=== PATIENT | female | born 1960 | race Caucasian/White ===

== ENCOUNTER 2023-08-21 09:03 | Outpatient (OUT) | payer OTHER, SELFPAY ==
[2023-08-21 10:52] LABS: Estimated Average Glucose 105 mg/dL; Glycohemoglobin A1C 5.3 % (4.5-6.2)
[2023-08-21 11:33] LABS: Alanine Aminotransferase 24 U/L (14-59); Albumin Level 3.8 g/dL (3.4-5.0); Alkaline Phosphatase 84 U/L (46-116); Anion Gap 9.7; Aspartate Amino Transferase 16 U/L (15-37); BUN Creatinine Ratio 20.5; Bilirubin Total 0.6 mg/dL (0.2-1.0); Calcium 9.5 mg/dL (8.5-10.1); Carbon Dioxide 30.6 mmol/L (21.0-32.0); Chloride 103 mmol/L (98-107); Chol HDL Ratio 2.8; Cholesterol 199 mg/dL (<=200); Estimated GFR (African America >60 (>=60); Estimated GFR (Non-African Ame >60 (>=60); Free T3 2.62 pg/mL (2.18-3.98); Globulin 3.9 g/dL; Glucose 90 mg/dL (74-106); HDL Cholesterol 70 mg/dL (40-60); Potassium 4.3 mmol/L (3.5-5.1); Sodium 139 mmol/L (136-145); Thyroid Stimulating Hormone 0.238 uIU/mL (0.358-3.740); Total Protein 7.7 g/dL (6.4-8.2); Triglycerides 93 mg/dL (<=150); VLDL CHOLESTEROL 18.6 mg/dL
[2023-08-21 11:47] LABS: Basophils Absolute Auto 0.1 10^3/uL (0.0-0.1); Basophils Percent Auto 0.9 % (0.2-2.0); Eosinophils Absolute Auto 0.2 10^3/uL (0.0-0.7); Eosinophils Percent Auto 2.9 % (0.9-7.0); Hematocrit 45.5 % (36.0-48.0); Hemoglobin 14.8 g/dL (12.0-16.0); Immature Granulocytes Abs Auto 0.01 10^3/uL (0.00-0.03); Immature Granulocytes Pct Auto 0.1 % (0.0-0.5); Lymphocytes Absolute Auto 2.9 10^3/uL (1.2-3.8); Lymphocytes Percent Auto 36.5 % (20.5-60.0); Mean Corpuscular HGB Conc 32.5 g/dL (29.9-35.2); Mean Corpuscular Hemoglobin 31.2 pg (26.7-34.0); Mean Corpuscular Volume 95.8 fL (81.0-99.0); Mean Platelet Volume 10.9 fL (9.5-13.5); Monocytes Absolute Auto 0.6 10^3/uL (0.3-0.8); Monocytes Percent Auto 8.1 % (1.7-12.0); Neutrophils Absolute Auto 4.1 10^3/uL (1.4-6.5); Neutrophils Percent Auto 51.5 % (43.0-75.0); Platelet Count 247 10^3/uL (150-450); Red Blood Count 4.75 10^6/uL (4.20-5.40); Red Cell Distribution Width 11.7 % (11.0-15.0); White Blood Count 7.9 10^3/uL (4.0-11.0)
== END 2023-08-21 09:04 | disposition home or self-care (01) ==
LOC: LAB 09:07
PROVIDERS: PCP Family Medicine; Visit Provider Family Medicine
DX: Z00.00 Encounter for general adult medical examination without abnormal findings (principal)
CPT/HCPCS: 36415; 80053; 80061; 83036; 84436; 84443; 84481; 85025

== ENCOUNTER 2024-09-15 09:52 | Outpatient (OUT) | payer MEDICARE, SELFPAY ==
[2024-09-15 10:21] LABS: Basophils Absolute Auto 0.1 10^3/uL (0.0-0.1); Basophils Percent Auto 0.9 % (0.2-2.0); Eosinophils Absolute Auto 0.3 10^3/uL (0.0-0.7); Eosinophils Percent Auto 3.2 % (0.9-7.0); Hematocrit 45.6 % (36.0-48.0); Hemoglobin 15.6 g/dL (12.0-16.0); Immature Granulocytes Abs Auto 0.02 10^3/uL (0.00-0.03); Immature Granulocytes Pct Auto 0.3 % (0.0-0.5); Lymphocytes Absolute Auto 2.8 10^3/uL (1.2-3.8); Lymphocytes Percent Auto 35.3 % (20.5-60.0); Mean Corpuscular HGB Conc 34.2 g/dL (29.9-35.2); Mean Corpuscular Hemoglobin 31.7 pg (26.7-34.0); Mean Corpuscular Volume 92.7 fL (81.0-99.0); Mean Platelet Volume 9.8 fL (9.5-13.5); Monocytes Absolute Auto 0.6 10^3/uL (0.3-0.8); Monocytes Percent Auto 7.1 % (1.7-12.0); Neutrophils Absolute Auto 4.2 10^3/uL (1.4-6.5); Neutrophils Percent Auto 53.2 % (43.0-75.0); Platelet Count 253 10^3/uL (150-450); Red Blood Count 4.92 10^6/uL (4.20-5.40); Red Cell Distribution Width 11.9 % (11.0-15.0); White Blood Count 7.8 10^3/uL (4.0-11.0)
[2024-09-15 10:42] LABS: Estimated Average Glucose 108 mg/dL; Glycohemoglobin A1C 5.4 % (4.5-6.2)
[2024-09-15 11:13] LABS: Alanine Aminotransferase 23 U/L (14-59); Albumin Globulin Ratio 1.1; Albumin Level 3.9 g/dL (3.4-5.0); Alkaline Phosphatase 86 U/L (46-116); Anion Gap 6.7; Aspartate Amino Transferase 16 U/L (15-37); BUN Creatinine Ratio 22.4; Bilirubin Total 0.5 mg/dL (0.2-1.0); Calcium 9.6 mg/dL (8.5-10.1); Carbon Dioxide 31.2 mmol/L (21.0-32.0); Chloride 103 mmol/L (98-107); Chol HDL Ratio 2.8; Cholesterol 195 mg/dL (<=200); Estimated GFR (African America >60 (>=60 mL/min/1.73m^2); Estimated GFR (Non-African Ame >60 (>=60 mL/min/1.73m^2); Free T3 2.92 pg/mL (2.18-3.98); Globulin 3.7 g/dL; Glucose 91 mg/dL (74-106); HDL Cholesterol 69 mg/dL (40-60); Potassium 3.9 mmol/L (3.5-5.1); Sodium 137 mmol/L (136-145); Thyroid Stimulating Hormone 0.349 uIU/mL (0.358-3.740); Total Protein 7.6 g/dL (6.4-8.2); Triglycerides 106 mg/dL (<=150); VLDL CHOLESTEROL 21.2 mg/dL
== END 2024-09-15 09:53 | disposition home or self-care (01) ==
PROVIDERS: PCP Family Medicine; Visit Provider Family Medicine
DX: E03.9 Hypothyroidism, unspecified (principal); E78.00 Pure hypercholesterolemia, unspecified; K21.9 Gastro-esophageal reflux disease without esophagitis; R73.09 Other abnormal glucose; Z12.12 Encounter for screening for malignant neoplasm of rectum; D64.9 Anemia, unspecified; I10 Essential (primary) hypertension; R53.83 Other fatigue
CPT/HCPCS: 36415; 80053; 80061; 83036; 83540; 84436; 84443; 84481; 85025

== ENCOUNTER 2024-10-13 04:25 | Emergency (ER) | payer MEDICARE, SELFPAY ==
[2024-10-13 04:28] VITALS: BP 163/109; PULSE 67; TEMP 36.8; O2SAT 98; BMI 22.9
--- NOTE | 2024-10-13 04:46 | ED_ITS ---
HPI - Nausea/Vomiting/Diarrhea General Chief complaint: Nausea/Vomiting/Diarrhea Stated complaint: RHETT BOOKER FELING Time Seen by Provider: 10/13/24 04:42 Source: patient Mode of arrival: walk-in History of Present Illness HPI Narrative: ill for a couple of days. Started with chills and then frontal headache . Headache has improved. Diarrhea for a couple of days. Nonbloody. no abdominal pain or fever. Feels weak. Exposed to grandchild last week with diarrhea Related Data Home Medications ?Medication ?Instructions ?Recorded ?Confirmed hyoscyamine 0.15 mg tablet 0.125 mg PO TID 10/13/24 10/13/24 levothyroxine 100 mcg tablet 100 mcg PO DAILY 10/13/24 10/13/24 lovastatin 20 mg tablet 20 mg PO DAILY 10/13/24 10/13/24 Allergies Allergy/AdvReac Type Severity Reaction Status Date / Time No Known Drug Allergies Allergy Verified 10/13/24 04:32 Review of Systems ROS Status of ROS 10 or more systems reviewed and unremark able except as noted in history and below Exam Constitutional Vital Signs, click to edit/add: Last Vital Signs Temp 98.2 F 10/13/24 04:28 Pulse 67 10/13/24 04:28 Resp 16 10/13/24 04:28 BP 163/109 H 10/13/24 04:28 Pulse Ox 98 10/13/24 04:28 O2 Del Method Room Air 10/13/24 04:28 Common normals: no apparent distress, average body habitus, oriented x3, no limitations, healthy appearing, alert and well nourished [facility] Common normals: normocephalic and head/scalp atraumatic Eye Common normals: EOMs intact bilaterally and conjunctivae normal Respiratory Common normals: normal respiratory effort, no retractions, no use of accessory muscles and clear to auscultation bilaterally Cardio Common normals: regular rate, regular rhythm, S1 normal heart sound and S2 normal heart sound GI Common normals: Normal to inspection, nondistended, normoactive bowel sounds present, soft to palpation and non-tender Extremity Common normals: normal to inspection and full ROM Neuro Common normals: oriented x3, CN's II-XII intact bilaterally, moves all extremities and no focal motor deficits Psych Appearance: grossly normal Course Vital Signs Vital signs: Vital Signs Temperature 98.2 F 10/13/24 04:28 Pulse Rate 67 10/13/24 04:28 Respiratory Rate 16 10/13/24 04:28 Blood Pressure 163/109 H 10/13/24 04:28 Pulse Oximetry 98 10/13/24 04:28 Oxygen Delivery Method Room Air 10/13/24 04:28 Temperature 98.2 F 10/13/24 04:28 Pulse Rate 67 10/13/24 04:28 Respiratory Rate 16 10/13/24 04:28 Blood Pressure 163/109 H 10/13/24 04:28 Pulse Oximetry 98 10/13/24 04:28 Oxygen Delivery Method Room Air 10/13/24 04:28 MDM - Nausea/Vomiting/Diarrhea MDM Narrative Medical decision making narrative: patient presents with diarrhea. No abdominal pain. Feels weak. Found to have hypomagnesemia. remaining labs WNL. Hydrated in the department and magnesium supplemented. Discharged home with a prescription of Lomotil and is to follow up with her doctor Lab Data Labs: Lab Results 10/13/24 10/13/24 Range/Units 04:50 05:00 WBC 8.4 (4.0-11.0) 10^3/uL RBC 5.24 (4.20-5.40) 10^6/uL Hgb 16.7 H (12.0-16.0) g/dL Hct 49.5 H (36.0-48.0) % MCV 94.5 (81.0-99.0) fL MCH 31.9 (26.7-34.0) pg MCHC 33.7 (29.9-35.2) g/dL RDW 12.0 (11.0-15.0) % Plt Count 218 (150-450) 10^3/uL MPV 10.1 (9.5-13.5) fL Neut % (Auto) 69.6 (43.0-75.0) % Lymph % (Auto) 17.7 L (20.5-60.0) % [place] % (Auto) 10.2 (1.7-12.0) % Eos % (Auto) 2.0 (0.9-7.0) % Baso % (Auto) 0.1 L (0.2-2.0) % Neut # (Auto) 5.8 (1.4-6.5) 10^3/uL Lymph # (Auto) 1.5 (1.2-3.8) 10^3/uL [place] # (Auto) 0.9 H (0.3-0.8) 10^3/uL Eos # (Auto) 0.2 (0.0-0.7) 10^3/uL Baso # (Auto) 0.0 (0.0-0.1) 10^3/uL Abs Immat Gran (auto) 0.03 (0.00-0.03) 10^3/uL Imm/Tot Granulo (auto) 0.4 (0.0-0.5) % Sodium 139 (136-145) mmol/L Potassium 3.5 (3.5-5.1) mmol/L Chloride 101 (98-107) mmol/L Carbon Dioxide 27.4 (21.0-32.0) mmol/L Anion Gap 14.1 BUN 16.0 (7.0-18.0) mg/dL Creatinine 0.93 (0.55-1.02) mg/dL Est GFR ( Amer) >60 (>=60 mL/min/1.73m^2) Est GFR (Non-Af Amer) >60 (>=60 mL/min/1.73m^2) BUN/Creatinine Ratio 17.2 Glucose 93 (74-106) mg/dL Lactate 1.1 (0.4-2.0) mmol/L Calcium 9.3 (8.5-10.1) mg/dL Magnesium 1.6 L (1.8-2.4) mg/dL Total Bilirubin 0.5 (0.2-1.0) mg/dL AST 29 (15-37) U/L ALT 31 (14-59) U/L Alkaline Phosphatase 89 (46-116) U/L Total Protein 7.9 (6.4-8.2) g/dL Albumin 3.7 (3.4-5.0) g/dL Globulin 4.2 g/dL Albumin/Globulin Ratio 0.9 Urine Color Yellow (YELLOW) Urine Clarity Clear (CLEAR) Urine pH 6.0 (5.0-9.0) Ur Specific [place] 1.020 (1.005-1.025) Urine Protein Negative (NEG/TRACE) mg/dL Urine Glucose (UA) Negative (NEGATIVE) mg/dL Urine Ketones >=80 A (NEGATIVE) mg/dL Urine Occult Blood Trace-i (NEGATIVE) Urine Nitrite Negative (NEGATIVE) Urine Bilirubin Small A (NEGATIVE) Urine Urobilinogen 0.2 (0.2-1.0) EU/dL Ur Leukocyte Esterase Negative (NEGATIVE) Urine RBC None seen (0-2) #/HPF Urine WBC 0-2 A (NONE SEEN) #/HPF Ur Squamous Epith Cells Rare (NONE/RARE) #/LPF Urine Crystals None seen (None Seen) #/HPF Urine Bacteria Small A (NONE SEEN) #/HPF Urine Casts None seen (NONE SEEN) #/LPF Ur [place] [place] Discharge Chief Complaint: Nausea/Vomiting/Diarrhea Clinical Impression: Diarrhea Patient Disposition: Home, Self-Care Prescriptions / Home Meds: No Action levothyroxine 100 mcg tablet 100 mcg PO DAILY lovastatin 20 mg tablet 20 mg PO DAILY hyoscyamine 0.15 mg tablet 0.125 mg PO TID Print Language: Ghanaian Instructions: Acute Diarrhea (ED) Additional Instructions: use Lomotil in place of hyoscyamine. Follow up with Dr Madera next couple of days Referrals: Mateusz Madera MD [Primary Care Provider] - 1 week
[2024-10-13 05:11] LABS: Basophils Percent Auto 0.1 % (0.2-2.0); Eosinophils Absolute Auto 0.2 10^3/uL (0.0-0.7); Hematocrit 49.5 % (36.0-48.0); Hemoglobin 16.7 g/dL (12.0-16.0); Immature Granulocytes Abs Auto 0.03 10^3/uL (0.00-0.03); Immature Granulocytes Pct Auto 0.4 % (0.0-0.5); Lymphocytes Absolute Auto 1.5 10^3/uL (1.2-3.8); Lymphocytes Percent Auto 17.7 % (20.5-60.0); Mean Corpuscular HGB Conc 33.7 g/dL (29.9-35.2); Mean Corpuscular Hemoglobin 31.9 pg (26.7-34.0); Mean Corpuscular Volume 94.5 fL (81.0-99.0); Mean Platelet Volume 10.1 fL (9.5-13.5); Monocytes Absolute Auto 0.9 10^3/uL (0.3-0.8); Monocytes Percent Auto 10.2 % (1.7-12.0); Neutrophils Absolute Auto 5.8 10^3/uL (1.4-6.5); Neutrophils Percent Auto 69.6 % (43.0-75.0); Platelet Count 218 10^3/uL (150-450); Red Blood Count 5.24 10^6/uL (4.20-5.40); White Blood Count 8.4 10^3/uL (4.0-11.0)
[2024-10-13 05:19] LABS: Bilirubin Urine SMALL (NEGATIVE); Blood Urine TRACE-I (NEGATIVE); Clarity Urine CLEAR (CLEAR); Color Urine YELLOW (YELLOW); Glucose Urine UA NEGATIVE (NEGATIVE); Ketones Urine >=80 mg/dL (NEGATIVE); Leukocyte Esterase Urine NEGATIVE (NEGATIVE); Nitrite Urine NEGATIVE (NEGATIVE); Protein Urine NEGATIVE (NEG/TRACE); Urobilinogen Urine 0.2 EU/dL (0.2-1.0)
[2024-10-13] MEDS: 0.9 % SODIUM CHLORIDE 1,000 ML 999 ML IV (05:25)
[2024-10-13 05:26] LABS: Bacteria Urine SMALL #/HPF (NONE SEEN); Cast Seen? NONE SEEN #/LPF (NONE SEEN); Crystals Seen? None Seen #/HPF (None Seen); RBC Urine NONE SEEN #/HPF (0-2); Squamous Epithelial Cell Urine RARE #/LPF (NONE/RARE); WBC Urine 0-2 #/HPF (NONE SEEN)
[2024-10-13 05:27] LABS: Urine Culture Indicated YES-FRMC
--- NOTE | 2024-10-13 05:27 | PC.NURSE ---
reports diarrhea for two days. denies any abdominal pain. saw pcp yesterday and was prescribed antidiarrhal
[2024-10-13 05:28] LABS: Alanine Aminotransferase 31 U/L (14-59); Albumin Globulin Ratio 0.9; Albumin Level 3.7 g/dL (3.4-5.0); Alkaline Phosphatase 89 U/L (46-116); Anion Gap 14.1; Aspartate Amino Transferase 29 U/L (15-37); BUN Creatinine Ratio 17.2; Bilirubin Total 0.5 mg/dL (0.2-1.0); Calcium 9.3 mg/dL (8.5-10.1); Carbon Dioxide 27.4 mmol/L (21.0-32.0); Chloride 101 mmol/L (98-107); Estimated GFR (African America >60 (>=60 mL/min/1.73m^2); Estimated GFR (Non-African Ame >60 (>=60 mL/min/1.73m^2); Globulin 4.2 g/dL; Glucose 93 mg/dL (74-106); Magnesium 1.6 mg/dL (1.8-2.4); Potassium 3.5 mmol/L (3.5-5.1); Sodium 139 mmol/L (136-145); Total Protein 7.9 g/dL (6.4-8.2)
[2024-10-13 05:57] LABS: Lactate/Lactic Acid 1.1 mmol/L (0.4-2.0)
[2024-10-13] MEDS: MAGNESIUM SULFATE IN WATER 2 GM/50 ML PREMIX IV (06:14)
[2024-10-13 07:10] VITALS: BP 135/94; PULSE 87; O2SAT 99
[2024-10-13] MEDS: LOPERAMIDE HCL 1 MG/7.5 ML LIQUID 2 MG PO (07:21)
== END 2024-10-13 07:23 | disposition home or self-care (01) ==
PROVIDERS: Emergency Provider Internal Medicine; PCP Family Medicine
DX: R19.7 Diarrhea, unspecified (principal); E83.42 Hypomagnesemia; R82.998 Other abnormal findings in urine
CPT/HCPCS: 36415; 80053; 81001; 83605; 83735; 85025; 87086; 96361; 96365; 99284; J3475

== ENCOUNTER 2024-12-25 02:26 | Emergency (ER) | payer MEDICARE, SELFPAY ==
[2024-12-25] VITALS (11 sets, daily range): BP systolic 149–181; BP diastolic 88–105; PULSE 67–73; TEMP 36.4; O2SAT 94–99; BMI 23.4
--- NOTE | 2024-12-25 02:00 | ECG_ITS ---
[facility] Test Date: 2024-12-25 Pat Name: ROBYN DUNLAP Department: Room: - Gender: Female [employer] Supervisor: : [id number] Requested By: [id number] Order Number: [id number] Reading MD: NARENDRA DICK M.D. Measurements Intervals [place] Rate: 68 P: 66 ND: 176 QRS: -39 QRSD: 92 T: 33 QT: 412 QTc: 429 Interpretive Statements 1100 Sinus rhythm 5220 Possible left ventricular hypertrophy 6220 Possible left atrial enlargement 7200 Abnormal left axis deviation 8003 Consistent with pulmonary disease 8102 Low QRS voltage in chest leads 9150 abnormal ECG Compared to ECG 05/05/2022 20:46:37 Low QRS voltage now present Electronically Signed On 12-26-2024 17:22:24 EDT by NARENDRA DICK M.D.
--- OUTSIDE RECORDS SUMMARY | 2024-12-25 02:43 | XMS_ITS | CCD ---
Author Organization [facility] Care Team Providers Care Supervisor Loading Name Role Phone LORRI WILLAMS Attending Unavailable BLAYNE SMITH Admitting Unavailable OXANA, DR MITCHELL Primary Care Unavailable JUAN HORAN Consulting Unavailable BLAYNE SMITH Attending Unavailable BLAYNE SMITH Consulting Unavailable ANGEL FITCH Consulting Unavailable OXANA, DR MITCHELL Attending Unavailable OXANA, DR MITCHELL Consulting Unavailable OXANA, DR MITCHELL Primary Care Unavailable OXANA, DR MITCHELL Admitting Unavailable OXANA, DR MITCHELL Primary Care Unavailable ISMA HOPKINS Attending Unavailable ISMA HOPKINS Admitting Unavailable GINO, DR ANGEL Eagle Consulting Unavailable GUS RUFFIN Consulting Unavailable Isma Hpokins MD Attending Provider [phone] Stephen Madera MD Primary Care Provider STEPHEN MADERA Referring Unavailable STEPHEN MADERA Referring Unavailable DENI ROCHA Attending Unavailable Stephen Madera Admitting Unavailable Stephen Madera Primary Care Unavailable Stephen Madera Attending Unavailable Isma Hopkins Attending Unavailable Isma Hopkins Admitting Unavailable Deni Rocha Admitting Unavailable Deni Rocha Attending Unavailable Stephen Madera Primary Care Unavailable Allergies Allergy Classification Reported Allergen(s) Allergy Type Date of Onset Reaction(s) Facility (3 sources) Metoprolol; Translations: [METOPROLOL] Drug Allergy 05-07-2022 [facility] Repository Medications Current Medications Medication Drug Class(es) Dates Sig (Normalized) Sig (Original) ALPRAZolam 0.25 mg oral tablet (2 sources) Benzodiazepine Start: 12-01-2024 take 1 tablet by mouth in the morning, then take 1 tablet by mouth in the evening, then take 1 tablet by mouth at bedtime ALPRAZolam (Xanax) 0.25 MG tablet Take 0.25 mg by mouth in the morning and 0.25 mg in the evening and 0.25 mg before bedtime. 12/01/2024 Active levothyroxine sodium 0.1 mg oral tablet (2 sources) l-Thyroxine Start: 09-15-2024 take 1 tablet by mouth once daily levothyroxine (Synthroid, Levoxyl) 100 MCG tablet Take 100 mcg by mouth Daily 09/15/2024 Active lovastatin 20 mg oral tablet (2 sources) HMG-CoA Reductase Inhibitor Start: 12-14-2024 lovastatin (Mevacor) 20 MG tablet 12/14/2024 Active Problems Problem Classification Problem Date Documented Date Episodic/Chronic Cancer of breast (6 sources) Malignant tumor of breast ; Translations: [Malignant neoplasm of unspecified site of right female breast] Onset: 12-15-2024 12-15-2024 Chronic Cardiac dysrhythmias (3 sources) Supraventricular tachycardia; Translations: [Supraventricular tachycardia] Onset: 04-30-2022 Chronic Cardiac dysrhythmias (4 sources) Palpitations; Translations: [PALPITATIONS] Onset: 04-27-2022 Episodic Conditions associated with dizziness or vertigo (5 sources) Dizziness and giddiness; Translations: [DIZZINESS AND GIDDINESS] Onset: 04-30-2022 Episodic E Codes: Adverse effects of medical drugs (1 source) Adverse effect of beta-adrenoreceptor antagonists, initial encounter; Translations: [ADVRS EFF B-ADRENOCPT ANTAG INITIAL] Onset: 05-09-2022 Episodic Malaise and fatigue (1 source) Other fatigue; Translations: [OTHER FATIGUE] Onset: 05-09-2022 Episodic Nonmalignant breast conditions (1 source) Unspecified lump in the right breast, upper outer quadrant; Translations: [Unspecified lump in the right breast, upper outer quadrant] Onset: 12-08-2024 Episodic Other aftercare (1 source) Other product development assistant (current) drug therapy; Translations: [OTH TELESALES CONSULTANT CURRENT DRUG THERAPY] Onset: 05-09-2022 Episodic Results Test Name Value Interpretation Reference Range Facility [facility] 12-08-2024 L --- Specimen: [id number] Received: 12/08/24 Status: GIOVANNY Reina Num: [id number] Spec Type: Surgical Subm Dr: Elieser Helms Jr, DO Tissues: A BREAST CORE NO CALCS (RIGHT BREAST 8 CM) B BREAST CORE NO CALCS (RIGHT BREAST 6 CM) Procedures: HE/8, Gross/Micro L4/2, E CADHERIN/2, ER/2, Ki-67/2, ME/2, IHC First AB/2 Age/ Patient Sex Location Account Attending Physician Bianca Toleod 64/F SUSANNA [id number] Stephen Madera MD SPEC NUM: [id number] RECD: 12/08/24 STATUS: GIOVANNY REINA NUM: [id number] HAMMAD: 12/08/[address] [facility] [address]: Elieser Helms Jr, DO ENTERED: 12/08/24 [facility] DR: Deni Rocha DO SPEC TYPE: Surgical DEPT: S ENTERED BY: [id number] RECV BY: [id number] ORDERED: HE/8, Gross/Micro L4/2, E CADHERIN/2, ER/2, Ki-67/2, ME/2, IHC First AB/2 ORDERED: HE/8, Gross/Micro L4/2, E CADHERIN/2, ER/2, Ki-67/2, ME/2, IHC First AB/2, IMMUNOHISTOCHEM/6 This report is amended to clarify the location/site designation of specimen B. The report should read: B. Right breast, 2:00, 6 cm from nipple The original diagnosis remains unchanged. Addendum Signed (signature on file) Shant Moreno Jr., MD 12/13/24 0914 Supplemental Report Addendum 2 Entered: 12/18/24-0301 This supplemental is issued to report the results of the FISH analysis for HER2 performed at [facility] ([id number]). A summary report of the HER2 results is also attached. The complete reports have been scanned into the patient's medical record Specimen: [id number] Received: 12/08/24 Status: GIOVANNY Reina Num: [id number] Spec Type: Surgical Subm Dr: Elieser eHlms Jr, Tissues: A BREAST CORE NO CALCS (RIGHT BREAST 8 CM) B BREAST CORE NO CALCS (RIGHT BREAST 6 CM) Procedures: HE/8, Gross/Micro L4/2, E CADHERIN/2, ER/2, Ki-67/2, ME/2, IHC First AB/2 Patient: Bianca Toledo [id number] (Continued) Specimen: [id number] Received: 12/08/24 (Continued) Supplemental Report (Continued) Signed (signature on file) Tin Martini MD 12/10/24 1456 Specimen: [id number] Received: 12/08/24 Status: GIOVANNY Reina Num: [id number] Spec Type: Surgical Subm Dr: Elieser Helms Jr, Tissues: A BREAST CORE NO CALCS (RIGHT BREAST 8 CM) B BREAST CORE NO CALCS (RIGHT BREAST 6 CM) Procedures: HE/8, Gross/Micro L4/2, E CADHERIN/2, ER/2, Ki-67/2, ME/2, IHC First AB/2 Patient: Farzaneh Toledohlkeily Kendrick [id number] (Continued) Specimen: [id number] Received: 12/08/24-8766 (Continued) Supplemental Report (Continued) FISH HER2/ÁLVARO-17 Dual-Probe (Breast Cancer) RESULT: FINAL HER2 RESULT IS NEGATIVE (per 2018 ASCO/CAP guidelines). See result comments HER2 IHC Result is 2+ HER2 FISH Result: Cannot be determined (Group 4) Addendum Signed (signature on file) Shant Moreno Jr., MD 12/18/24 1525 Addendum 1 Entered: 12/17/24-5675 This supplemental report is issued to report the results of the HER2 prognostic marker analysis performed at [facility], ([facility] reference number [id number]) BREAST PREDICTIVE/PROGNOSTIC MARKER ANALYSIS A. Specimen site: Right Breast 8:00, 8 cmfn (block A1) RESULTS: HER2 Ultralow (see comments) Score: 0 Analysis: Manual B. Specimen site: Right Breast 2:00, 6 cmfn (block B1) RESULTS: HER2 Equivocal Score: 2+ Analysis: Manual FISH testing being performed. The complete report has been scanned into the patient's medical record. Specimen: [id number] Received: 12/08/24 Status: GIOVANNY Reina Num: [id number] Spec Type: Surgical Subm Dr: Elieser Helms Jr, DO Tissues: A BREAST CORE NO CALCS (RIGHT BREAST 8 CM) B BREAST CORE NO CALCS (RIGHT BREAST 6 CM) Procedures: HE/8, Gross/ (more content not included)... Normal [facility] US biopsy RT add lesion guid on 12-08-2024 US biopsy RT add lesion guid [facility] [place] [address] Ultrasound Report Signed with Lynn Patient: Bianca Toledo MR#: [id number] : 1960 Acct:[id number] Age/Sex: 64 / F ADM Date: 12/08/24 Loc: [facility] Room: Type: [facility] Attending Dr: Stephen Madera MD Ordering Provider: Stephen Madera MD Date of Service: 12/08/24 US/US biopsy RT 1st lesion guid: N63.14 ([id number]) US/US biopsy RT add lesion guid: N63.14 ([id number]) MM/MM post biopsy RT w/CAD: CLIP PLACEMENT Copies to: Stephen Madera MD ADDENDUM 1 Addendum for pathology: 2 sites Ultrasound-guided biopsy of mass 8 o'clock position right breast: Invasive breast carcinoma grade 2. ER/ME positive. Finding is malignant and concordant with imaging. Ultrasound-guided biopsy of mass 2:00 position right breast: Invasive breast carcinoma grade 2. ER/ME positive. Finding is malignant and concordant with imaging. Surgical/oncologic management is recommended. Impression dictated by: Elieser Helms Jr., D.OValerie 12/13/2024 9:18 AM Dictation Location: [facility]23 Addendum Dictated By: Elieser Helms Jr DO Addendum Signed By: 12/13/24917 Addendum Cosigned By: DD/ TD/TT: 12/13/24 ULTRASOUND GUIDED VACUUM-ASSISTED HOLOGIC ATEC SYSTEM CORE BIOPSIES OF THE RIGHT BREAST: 2 sites CLINICAL DATA: Breast mass in o'clock position right breast as well as 2:00 position right breast PROCEDURE: The risks, benefits and alternatives to an ultrasound guided vacuum-assisted Hologic ATEC system core biopsy procedure were discussed with the patient and written informed consent was obtained. Site 1: Ultrasonographic survey of the 8:00 position of the right breast was performed by medicine technologist . Additional scanning of the right axilla demonstrated no suspicious lymph nodes. The patient's overlying skin was anesthetized with 1% lidocaine. The deeper soft tissues up to and around the mass were anesthetized with lidocaine mixed with epinephrine. Following this, multiple core biopsies of the 8:00 right breast mass were performed using a 12-gauge Suros vacuum-assisted core biopsy needle under ultrasound guidance. Multiple core biopsy specimens were obtained. A metallic conic bowtie post biopsy marker was then placed. Post procedure mammograms were performed. The patient tolerated the procedure well without immediate postprocedural complication. Site 2: Ultrasonographic survey of the 2:00 position of the right breast was performed by medicine technologist . The patient's overlying skin was anesthetized with 1% lidocaine. The deeper soft tissues up to and around the mass were anesthetized with lidocaine mixed with epinephrine. Following this, multiple core biopsies of the breast mass were performed using a 12-gauge Suros vacuum-assisted core biopsy needle under ultrasound guidance. Multiple core biopsy specimens were obtained. A metallic vision post biopsy marker was then placed. Post procedure mammograms were performed. The patient tolerated the procedure well without immediate postprocedural complication. POSTPROCEDURE MAMMOGRAMS: Craniocaudal and true lateral views of the right breast were performed using low dose digital technique. The postbiopsy markers are seen at the biopsy site without evidence of migration. US/US biopsy RT 1st lesion guid IMPRESSION: STATUS POST ULTRASOUND GUIDED VACUUM-ASSISTED CORE BIOPSIES OF THE RIGHT BREAST. RESULT CODE: NL Impression dictated by: Elieser Helms Jr., DValerieOValerie 12/08/2024 1:46 PM Dictation Location: [facility] Tech: Deepthi BarryChuck Delma Gaspar Transcribed By: EVELYN 12/08/24 1346 Dictated By: Elieser Helms Jr, DO 12/08/24 1312 Signed By: 12/08/24 1346 Normal [facility] BI MAMMOGRAM DIAGNOSTIC MAUREEN SYNTHESIS RIGHTon 11-25-2024 BI MAMMOGRAM DIAGNOSTIC TOMOSYNTHESIS RIGHT This is a summary report. The complete report is available in the patient's medical record. If you cannot access the medical record, please contact the sending organization for a detailed fax or copy. EXAMINATION: BI MAMMOGRAM DIAGNOSTIC TOMOSYNTHESIS RIGHT CLINICAL HISTORY: abnormal mammogram TECHNIQUE: Diagnostic digital mammogram study of the right breast was performed with 2D and 3D tomosynthesis imaging. Study was compared to the screening mammogram study of the breasts dated 11/18/2024 and ultrasound study of the right breast dated 11/25/2024. FINDINGS: Coned-down compression views and true lateral view of the right breast were obtained. The 2 areas of asymmetric density noted on the screening mammogram study are again identified. One of the areas is approximately 0.7 x 0.6 cm and is located at the mid level medially. This area is mildly lobulated. The other area is approximately 0.6 x 0.5 cm and is noted at the mid level laterally. This area appears mildly lobulated and slightly spiculated. The 2 areas are seen as areas of abnormality on the ultrasound study. When correlating the studies possibility of neoplasm related to both areas cannot be excluded. Follow-up tissue diagnosis by means of ultrasound-guided needle biopsy of both areas is recommended for further evaluation. Suspicious findings. IMPRESSION: The 2 asymmetric densities noted on the screening mammogram study are again identified, they appear to correlate with solid appearing areas of concern on the ultrasound exam. When correlating all studies the possibility of neoplasm cannot be excluded. Follow-up tissue diagnosis of both areas by means of ultrasound-guided needle biopsy is recommended for further evaluation. BIRADS 4 - Suspicious Findings DENSITY: The breasts are heterogeneously dense, which may obscure small masses. FOLLOW-UP: Ultrasound - Guided Breast Biopsy Board Certified Radiologists. Accredited by the ACR and FDA. MAMMOGRAPHY IS VERY IMPORTANT TO YOUR HEALTH. THE [employer] GUIDELINES RECOMMEND THAT WOMEN 40 YEARS OF AGE AND OLDER SHOULD HAVE A MAMMOGRAM EVERY YEAR. A REMINDER LETTER WILL BE SENT AT THE APPROPRIATE TIME. ELECTRONICALLY SIGNED BY: Cong Walsh M.D. Abnormal Not Available BI US BREAST LIMITED RIGHTon 11-25-2024 BI US BREAST LIMITED RIGHT This is a summary report. The complete report is available in the patient's medical record. If you cannot access the medical record, please contact the sending organization for a detailed fax or copy. Examination: BI US BREAST LIMITED RIGHT Reason for Study: abnormal mammogram Comparison: Screening mammogram study of the breasts dated 11/18/2024 and diagnostic mammogram study of the right breast dated 11/25/2024. Technique: Right breast ultrasound study was performed. Findings: At approximately the 2 o'clock position at least 6 cm from the nipple there is an area of decreased echogenicity with internal echoes, mild lobulation and slight spiculation measuring approximately 0.7 x 0.6 x 0.5 cm. This area is likely solid and is felt to correlate with one of the asymmetric densities on the mammogram study. When correlating the studies the possibility of neoplasm cannot be excluded. At the 8 o'clock position at least 6 cm from the nipple there is an area of decreased echogenicity with internal echoes, mildly lobulated and spiculated margins measuring approximately 0.6 x 0.4 x 0.4 cm. This area is likely solid and is felt to correlate with one of the asymmetric densities on the mammogram study. When correlating the studies the possibility of neoplasm cannot be excluded. Regarding both findings, follow-up tissue diagnosis by means of ultrasound-guided needle biopsy is recommended for further evaluation. Suspicious findings. IMPRESSION: Impression: Right breast ultrasound study demonstrates what appear to be 2 solid irregular areas at the 2:00 and 8:00 positions as described. These are felt to correlate with the asymmetric densities noted on the mammogram studies. When correlating all studies the possibility of neoplasm cannot be excluded. Follow-up tissue diagnosis of both areas by means of ultrasound-guided needle biopsy is recommended for further evaluation. BI-RADS 4 ELECTRONICALLY SIGNED BY: Cong Walsh M.D. Normal Not Available BI MAMMOGRAM SCREENING TOMOS YNTHESIS BILATERALon 11-18-2024 BI MAMMOGRAM SCREENING TOMOSYNTHESIS BILATERAL This is a summary report. The complete report is available in the patient's medical record. If you cannot access the medical record, please contact the sending organization for a detailed fax or copy. EXAMINATION: BI MAMMOGRAM SCREENING TOMOSYNTHESIS BILATERAL CLINICAL HISTORY:routine COMPARISON: July 19, 2020; July 20, 2021; August 26, 2022; October 02, 2023 RESULT: FINDINGS: Both breasts remain heterogeneously dense. There are no dominant masses, suspicious microcalcifications, or areas of architectural distortion identified on today's examination in the left breast. In the right breast no suspicious microcalcifications or architectural distortion seen. 2 asymmetries are seen. An asymmetry is seen at about 3:00, 7 to 8 cm from the nipple. It is medial on the cc and almost directly behind the nipple on the MLO. The second nodule is slightly superior and very slightly lateral about 11-12 o'clock, 9 to 10 cm from the nipple. IMPRESSION: BI-RADS 0: NEED ADDITIONAL IMAGING EVALUATION DENSITY: The breasts are heterogeneously dense, which may obscure small masses. Board Certified Radiologists. Accredited by the ACR and FDA. MAMMOGRAPHY IS VERY IMPORTANT TO YOUR HEALTH. THE [employer] GUIDELINES RECOMMEND THAT WOMEN 40 YEARS OF AGE AND OLDER SHOULD HAVE A MAMMOGRAM EVERY YEAR. A REMINDER LETTER WILL BE SENT AT THE APPROPRIATE TIME. THIS FACILITY UTILIZES A REMINDER SYSTEM TO ENSURE ALL PATIENTS RECEIVE REMINDER NOTIFICATIONS AT THE APPROPRIATE TIME BASED ON THE RECOMMENDATIONS OF THIS EXAM. THIS INCLUDES REMINDERS FOR ROUTINE SCREENING MAMMOGRAMS, DIAGNOSTIC MAMMOGRAMS IN WHICH THE PATIENT IS ASKED TO RETURN FOR ADDITIONAL VIEWS, OR OTHER BREAST IMAGING INTERVENTIONS WHEN APPROPRIATE. THE PATIENT WILL BE PLACED IN THE APPROPRIATE REMINDER SYSTEM INCLUDING A REMINDER AT THE APPROPRIATE TIME FOR ANY PENDING ADDITIONAL VIEWS. ELECTRONICALLY SIGNED BY: Joo Ellington, DO Abnormal Not Available Urine Cultureon 10-13-2024 Bacteria identified Cx Nom (U) Urine Culture Results 50,000 colonies/ml Mixed Bacterial Skin Contaminants 2 Days Staphylococcus epidermidis removed from report on 10/15/24. PERFORMED BY: [facility] [address] [place] [address] PATHOLOGIST DRAFTER CHIEF DESIGN TEN CHUN M.D. Normal [facility] Comment on above: Performed By: #### C UU #### [facility] [address] [place] [address] [facility] INSULINon 06-04-2022 Insulin 15.4 uIU/mL Normal 2.6-24.9 [facility] Comment on above: Performed By: #### I NSULIN #### [facility] [address] [place] [address] Dr. Ara Anne CBC AUTO DIFFon 06-03-2022 BASO # 0.1 103/ul Normal 0.0-0.1 [facility] Comment on above: Performed By: #### C BC #### [facility] [address] [place] [address] Dr. Ara Anne Basophils/100 WBC (Bld) 0.7 % Normal 0.2-2.0 [facility] Comment on above: Performed By: #### C BC #### [facility] [address] [place] [address] Dr. Ara Anne EO # 0.3 103/ul Normal 0.0-0.7 [facility] Comment on above: Performed By: #### C BC #### [facility] [address] [place] [address] Dr. Ara Anne Eosinophils/100 WBC (Bld) 3.5 % Normal 0.9-7.0 [facility] Comment on above: Performed By: #### C BC #### [facility] [address] [place] [address] Dr. Ara Anne Erythrocyte distribution width (RBC) [Ratio] 11.5 % Normal 11.0-15.0 [facility] Comment on above: Performed By: #### C BC #### [facility] [address] [place] [address] Dr. Ara Anne Hematocrit (Bld) [Volume fraction] 44.0 % Normal 36.0-48.0 [facility] Comment on above: Performed By: #### C BC #### [facility] [address] [place] [address] Dr. Ara Anne Hemoglobin (Bld) [Mass/Vol] 15.0 g/dL Normal 12.0-16.0 [facility] Comment on above: Performed By: #### C BC #### [facility] [address] [place] [address] Dr. Ara Anne IG # 0.02 10e3/ul Normal 0.00-0.03 [facility] Comment on above: Performed By: #### C BC #### [facility] [address] [place] [address] Dr. Ara Anne IG % 0.2 % Normal 0.0-0.5 [facility] Comment on above: Performed By: #### C BC #### [facility] [address] [place] [address] Dr. Ara Anne LYMPH # 3.0 103/ul Normal 1.2-3.8 [facility] Comment on above: Performed By: #### C BC #### [facility] [address] [place] [address] Dr. Ara Anne Lymphocytes/100 WBC (Bld) 34.8 % Normal 20.5-60.0 [facility] Comment on above: Performed By: #### C BC #### [facility] [address] [place] [address] Dr. Ara Anne MANUAL DIFF REQ NO Normal [facility] Comment on above: Performed By: #### C BC #### [facility] [address] [place] [address] Dr. Ara Anne MCH (RBC) [Entitic mass] 31.6 pg Normal 26.7-34.0 [facility] Comment on above: Performed By: #### C BC #### [facility] [address] [place] [address] Dr. Ara Anne MCHC (RBC) [Mass/Vol] 34.1 g/dL Normal 29.9-35.2 [facility] Comment on above: Performed By: #### C BC #### [facility] [address] [address] [address] Ara Anne MCV (RBC) [Entitic vol] 92.6 fL Normal 81.0-99.0 [facility] Comment on above: Performed By: #### C BC #### [facility] [address] [address] [address] Ara Anne MONO # 0.8 103/ul Normal 0.3-0.8 [facility] Comment on above: Performed By: #### C BC #### [facility] [address] [place] [address] Dr. Ara Anne Monocytes/100 WBC (Bld) 9.1 % Normal 1.7-12.0 [facility] Comment on above: Performed By: #### C BC #### [facility] [address] [place] [address] Dr. Ara Anne NEUT # 4.4 103/ul Normal 1.4-6.5 [facility] Comment on above: Performed By: #### C BC #### [facility] [address] [place] [address] Dr. Ara Anne Neutrophils/100 WBC (Bld) 51.7 % Normal 43.0-75.0 [facility] Comment on above: Performed By: #### C BC #### [facility] [address] [place] [address] Dr. Ara Anne Platelet mean volume (Bld) [Entitic vol] 9.6 fL Normal 9.5-13.5 [facility] Comment on above: Performed By: #### C BC #### [facility] [address] [place] [address] Dr. Ara Anne PLT 253 103/ul Normal 150-450 [facility] Comment on above: Performed By: #### C BC #### [facility] [address] [place] [address] Dr. Ara Anne RBC 4.75 106/ul Normal 4.20-5.40 [facility] Comment on above: Performed By: #### C BC #### [facility] [address] [address] [address] Ara Anne WBC 8.6 103/ul Normal 4.0-11.0 [facility] Comment on above: Performed By: #### C BC #### [facility] [address] [place] [address] Dr. Ara Anne FREE THYROXINE INDEX T7on FTI 3.46 Normal 1.30-4.50 [facility] Comment on above: Performed By: #### I NSULIN #### [facility] [address] [address] [address] Ara Anne T3U 36.0 % Normal 30.0-39.0 [facility] Comment on above: Performed By: #### I NSULIN #### [facility] [address] [place] [address] Dr. Ara Anne T4 [Mass/Vol] 9.60 ug/dL Normal 4.80-13.90 [facility] Comment on above: Performed By: #### I NSULIN #### [facility] [address] [place] [address] Dr. Ara Anne GLYCOHEMOGLOBIN A1Con 2021 ADA RECOMMENDATION SEE BELOW Normal [facility] Comment on above: Result Comment: ADA RECOMMENDED LIMIT 4.0 - 6.0 ADA THERAPEUTIC TARGET < 7.0 ACTION SUGGESTED > 7.0 Performed By: #### I NSULIN #### [facility] [address] [place] [address] Dr. Ara Anne Glucose [Mass/Vol] 111 mg/dL Normal [facility] Comment on above: Performed By: #### I NSULIN #### [facility] [address] [address] [address] Ara Anne HbA1c (Bld) [Mass fraction] 5.5 % Normal 4.5-6.2 [facility] Comment on above: Performed By: #### I NSULIN #### [facility] [address] [place] [address] Dr. Ara Anne IRONon 06-03-2022 Iron [Mass/Vol] 108.0 ug/dL Normal 50.0-170.0 [facility] Comment on above: Performed By: #### I NSULIN #### [facility] [id number] Ara Anne LIPID PROFILEon 06-03-2022 CHOL-HDL RATIO NORM SEE BELOW Normal [facility] Comment on above: Result Comment: 3.3 - 4.4 LOW RISK 4.4 - 7.1 AVERAGE RISK 7.1 - 11.0 MODERATE RISK >11.0 HIGH RISK Performed By: #### I NSULIN #### [facility] [address] [address] [address] Ara Anne Cholesterol [Mass/Vol] 184 mg/dL Normal <=200 [facility] Comment on above: Performed By: #### I NSULIN #### [facility] [address] [address] [address] Ara Anne Cholesterol in HDL [Mass/Vol] 61 mg/dL Critically high 40-60 [facility] Comment on above: Performed By: #### I NSULIN #### [facility] [address] [address] [address] Ara Anne Cholesterol in LDL [Mass/Vol] 95.0 mg/dL Normal [facility] Comment on above: Performed By: #### I NSULIN #### [facility] [address] [address] [address] Ara Anne Cholesterol.total/C holesterol in HDL [Mass ratio] 3.0 {ratio} Normal [facility] Comment on above: Performed By: #### I NSULIN #### [facility] [id number] Ara Anne HDL NORMAL > or = 60 mg/dl - LO W CARDIOVASCULAR RISK <40 mg/dl - HIGH CARDIOVASCULAR RISK Normal [facility] Comment on above: Performed By: #### I NSULIN #### [facility] [id number] Ara Anne LDL CALC NORMAL SEE BELOW Normal [facility] Comment on above: Result Comment: <100 mg/dl OPTIMAL 100 - 129 mg/dl NEAR OR ABOVE OPTIMAL 130 - 159 mg/dl BORDERLINE HIGH 160 - 189 mg/dl HIGH >190 mg/dl VERY HIGH Performed By: #### I NSULIN #### [facility] [address] [place] [address] Dr. Ara Anne Triglyceride [Mass/Vol] 140 mg/dL Normal <=150 [facility] Comment on above: Performed By: #### I NSULIN #### [facility] [address] [place] [address] Dr. Ara Anne VLDL CALC 28.0 mg/dL Normal [facility] Comment on above: Performed By: #### I NSULIN #### [facility] [address] [place] [address] Dr. Ara Anne PROF 14(COMP METB)on 022 Albumin [Mass/Vol] 3.9 g/dL Normal 3.4-5.0 [facility] Comment on above: Performed By: #### I NSULIN #### [facility] [address] [place] [address] Dr. Ara Anne Albumin/Globulin [Mass ratio] 1.1 {ratio} Normal [facility] Comment on above: Performed By: #### I NSULIN #### [facility] [address] [place] [address] Dr. Ara Anne ALP [Catalytic activity/Vol] 89 U/L Normal 46-116 [facility] Comment on above: Performed By: #### I NSULIN #### [facility] [address] [place] [address] Dr. Ara Anne ALT [Catalytic activity/Vol] 20 U/L Normal 14-59 [facility] Comment on above: Performed By: #### I NSULIN #### [facility] [address] [place] [address] Dr. Ara Anne Anion gap [Moles/Vol] 11.4 mmol/L Normal [facility] Comment on above: Performed By: #### I NSULIN #### [facility] [address] [place] [address] Dr. Ara Anne AST [Catalytic activity/Vol] 19 U/L Normal 15-37 [facility] Comment on above: Performed By: #### I NSULIN #### [facility] [address] [address] [address] Ara Anne Bilirubin [Mass/Vol] 0.4 mg/dL Normal 0.2-1.0 [facility] Comment on above: Performed By: #### I NSULIN #### [facility] [address] [address] [address] Ara Anne Calcium [Mass/Vol] 9.8 mg/dL Normal 8.5-10.1 [facility] Comment on above: Performed By: #### I NSULIN #### [facility] [address] [address] [address] Ara Anne Chloride [Moles/Vol] 101 mmol/L Normal 98-107 [facility] Comment on above: Performed By: #### I NSULIN #### [facility] [address] [place] [address] Dr. Ara Anne CO2 [Moles/Vol] 29.7 mmol/L Normal 21.0-32.0 [facility] Comment on above: Performed By: #### I NSULIN #### [facility] [address] [address] [address] Ara Anne Creatinine [Mass/Vol] 0.62 mg/dL Normal 0.55-1.02 [facility] Comment on above: Performed By: #### I NSULIN #### [facility] [address] [address] [address] Ara Anne EGFR-AF HAITIAN >60 Normal >=60 [facility] Comment on above: Performed By: #### I NSULIN #### [facility] [address] [address] [address] Ara Anne EGFR-NON AF HAITIAN >60 Normal >=60 [facility] Comment on above: Performed By: #### I NSULIN #### [facility] [address] [place] [address] Dr. Ara Anne Globulin (S) [Mass/Vol] 3.7 g/dL Normal [facility] Comment on above: Performed By: #### I NSULIN #### [facility] [address] [address] [address] Ara Anne Glucose [Mass/Vol] 95 mg/dL Normal 74-106 [facility] Comment on above: Performed By: #### I NSULIN #### [facility] [address] [address] [address] Ara Anne Potassium [Moles/Vol] 4.1 mmol/L Normal 3.5-5.1 [facility] Comment on above: Performed By: #### I NSULIN #### [facility] [address] [address] [address] Ara Anne Protein [Mass/Vol] 7.6 g/dL Normal 6.4-8.2 [facility] Comment on above: Performed By: #### I NSULIN #### [facility] [address] [address] [address] Ara Anne Sodium [Moles/Vol] 138 mmol/L Normal 136-145 [facility] Comment on above: Performed By: #### I NSULIN #### [facility] [address] [address] [address] Ara Anne Urea nitrogen [Mass/Vol] 16.0 mg/dL Normal 7.0-18.0 [facility] Comment on above: Performed By: #### I NSULIN #### [facility] [address] [address] [address] Ara Anne Urea nitrogen/Creatinine [Mass ratio] 25.8 mg/mg Normal [facility] Comment on above: Performed By: #### I NSULIN #### [facility] [address] [address] [address] Ara Anne TSHon 06-03-2022 TSH 0.311 uIU/mL Critically low 0.358-3.740 [facility] Comment on above: Performed By: #### I NSULIN #### [facility] [address] [address] [address] Ara Anne Office Visiton 05-07-2022 Follow-up visit [id number] Bianca Toledo 1960 F Date Provider Department Center 05/07/2022 YannaLucioLORRI WILLAMS [facility] Family History Problem Relation Age of Onset Stroke Father 63 Family Status - Relation Status Age at Father Level of Service:11961 ME OFFICE/OUTPATIENT NEW HIGH MDM 60-74 MINUTES Reason for Visit and Comments: Palpitations [047664] Normal [facility] CBC AUTO DIFFon 05-05-2022 BASO # 0.1 103/ul Normal 0.0-0.1 [facility] Comment on above: Performed By: #### C BC #### [facility] [address] [address] [address] Ara Anne Basophils/100 WBC (Bld) 0.7 % Normal 0.2-2.0 [facility] Comment on above: Performed By: #### C BC #### [facility] [address] [address] [address] Ara Anne EO # 0.5 103/ul Normal 0.0-0.7 [facility] Comment on above: Performed By: #### C BC #### [facility] [address] [place] [address] Dr. Ara Anne Eosinophils/100 WBC (Bld) 4.7 % Normal 0.9-7.0 [facility] Comment on above: Performed By: #### C BC #### [facility] [address] [address] [address] Ara Anne Erythrocyte distribution width (RBC) [Ratio] 11.9 % Normal 11.0-15.0 [facility] Comment on above: Performed By: #### C BC #### [facility] [address] [place] [address] Dr. Ara Anne Hematocrit (Bld) [Volume fraction] 45.3 % Normal 36.0-48.0 [facility] Comment on above: Performed By: #### C BC #### [facility] [address] [place] [address] Dr. Ara Anne Hemoglobin (Bld) [Mass/Vol] 15.5 g/dL Normal 12.0-16.0 [facility] Comment on above: Performed By: #### C BC #### [facility] [address] [address] [address] Ara Anne IG # 0.03 10e3/ul Normal 0.00-0.03 [facility] Comment on above: Performed By: #### C BC #### [facility] [address] [place] [address] Dr. Ara Anne IG % 0.3 % Normal 0.0-0.5 [facility] Comment on above: Performed By: #### C BC #### [facility] [address] [place] [address] Dr. Ara Anne LYMPH # 4.3 103/ul Critically high 1.2-3.8 [facility] Comment on above: Performed By: #### C BC #### [facility] [address] [place] [address] Dr. Ara Anne Lymphocytes/100 WBC (Bld) 39.0 % Normal 20.5-60.0 [facility] Comment on above: Performed By: #### C BC #### [facility] [address] [place] [address] Dr. Ara Anne MANUAL DIFF REQ NO Normal [facility] Comment on above: Performed By: #### C BC #### [facility] [address] [place] [address] Dr. Ara Anne MCH (RBC) [Entitic mass] 32.2 pg Normal 26.7-34.0 [facility] Comment on above: Performed By: #### C BC #### [facility] [address] [place] [address] Dr. Ara Anne MCHC (RBC) [Mass/Vol] 34.2 g/dL Normal 29.9-35.2 [facility] Comment on above: Performed By: #### C BC #### [facility] [address] [place] [address] Dr. Ara Anne MCV (RBC) [Entitic vol] 94.2 fL Normal 81.0-99.0 [facility] Comment on above: Performed By: #### C BC #### [facility] [address] [place], [place] [id number] Dr. Ara Anen MONO # 1.0 103/ul Critically high 0.3-0.8 [facility] Comment on above: Performed By: #### C BC #### [facility] [address] [place] [address] Dr. Ara Anne Monocytes/100 WBC (Bld) 8.6 % Normal 1.7-12.0 [facility] Comment on above: Performed By: #### C BC #### [facility] [address] [place] [address] Dr. Ara Anne NEUT # 5.2 103/ul Normal 1.4-6.5 [facility] Comment on above: Performed By: #### C BC #### [facility] [address] [place] [address] Dr. Ara Anne Neutrophils/100 WBC (Bld) 46.7 % Normal 43.0-75.0 [facility] Comment on above: Performed By: #### C BC #### [facility] [address] [place] [address] Dr. Ara Anne Platelet mean volume (Bld) [Entitic vol] 10.2 fL Normal 9.5-13.5 [facility] Comment on above: Performed By: #### C BC #### [facility] [address] [place] [address] Dr. Ara Anne PLT 281 103/ul Normal 150-450 [facility] Comment on above: Performed By: #### C BC #### [facility] [address] [place] [address] Dr. Ara Anne RBC 4.81 106/ul Normal 4.20-5.40 [facility] Comment on above: Performed By: #### C BC #### [facility] [address] [place] [address] Dr. Ara Anne WBC 11.1 103/ul Critically high 4.0-11.0 [facility] Comment on above: Performed By: #### C BC #### [facility] [address] [place] [address] Dr. Ara Anne PROF 14(COMP METB)on 022 Albumin [Mass/Vol] 3.8 g/dL Normal 3.4-5.0 [facility] Comment on above: Performed By: #### H SANDHYA, CMP #### [facility] [address] [address] [address] Ara Anne Albumin/Globulin [Mass ratio] 1.0 {ratio} Normal [facility] Comment on above: Performed By: #### H ALYSSAPN, CMP #### [facility] [address] [address] [address] Ara Anne ALP [Catalytic activity/Vol] 79 U/L Normal 46-116 [facility] Comment on above: Performed By: #### H SANDHYA, CMP #### [facility] [address] [place] [address] Dr. Ara Anne ALT [Catalytic activity/Vol] 15 U/L Normal 14-59 [facility] Comment on above: Performed By: #### H SANDHYA, CMP #### [facility] [address] [place] [address] Dr. Ara Anne Anion gap [Moles/Vol] 7.2 mmol/L Normal [facility] Comment on above: Performed By: #### H SANDHYA, CMP #### [facility] [address] [place] [address] Dr. Ara Anne AST [Catalytic activity/Vol] 16 U/L Normal 15-37 [facility] Comment on above: Performed By: #### H SANDHYA, CMP #### [facility] [address] [address] [address] Ara Anne Bilirubin [Mass/Vol] 0.2 mg/dL Normal 0.2-1.0 [facility] Comment on above: Performed By: #### H ALYSSAPN, CMP #### [facility] [address] [address] [address] Ara Anne Calcium [Mass/Vol] 9.3 mg/dL Normal 8.5-10.1 [facility] Comment on above: Performed By: #### H ALYSSAPN, CMP #### [facility] [address] [address] [address] Ara Anne Chloride [Moles/Vol] 103 mmol/L Normal 98-107 [facility] Comment on above: Performed By: #### H ALYSSAPN, CMP #### [facility] [address] [address] [address] Ara Anne CO2 [Moles/Vol] 29.3 mmol/L Normal 21.0-32.0 [facility] Comment on above: Performed By: #### H STROPN, CMP #### [facility] [address] [place] [address] Dr. Ara Anne Creatinine [Mass/Vol] 0.92 mg/dL Normal 0.55-1.02 [facility] Comment on above: Performed By: #### H STROPN, CMP #### [facility] [address] [place] [address] Dr. Ara Anne EGFR-AF HAITIAN >60 Normal >=60 [facility] Comment on above: Performed By: #### H ALYSSAPN, CMP #### [facility] [address] [place] [address] Dr. Ara Anne EGFR-NON AF HAITIAN >60 Normal >=60 [facility] Comment on above: Performed By: #### H ALYSSAPN, CMP #### [facility] [address] [place] [address] Dr. Ara Anne Globulin (S) [Mass/Vol] 3.7 g/dL Normal [facility] Comment on above: Performed By: #### H ALYSSAPN, CMP #### [facility] [address] [address] [address] Ara Anne Glucose [Mass/Vol] 111 mg/dL Critically high 74-106 [facility] Comment on above: Performed By: #### H STROPN, CMP #### [facility] [address] [place] [address] Dr. Ara Anne Potassium [Moles/Vol] 3.5 mmol/L Normal 3.5-5.1 [facility] Comment on above: Performed By: #### H STROPN, CMP #### [facility] [address] [place] [address] Dr. Ara Anne Protein [Mass/Vol] 7.5 g/dL Normal 6.4-8.2 [facility] Comment on above: Performed By: #### H SANDHYA, CMP #### [facility] [address] [address] [address] Ara Anne Sodium [Moles/Vol] 136 mmol/L Normal 136-145 [facility] Comment on above: Performed By: #### H SANDHYA, CMP #### [facility] [address] [address] [address] Ara Anne Urea nitrogen [Mass/Vol] 17.0 mg/dL Normal 7.0-18.0 [facility] Comment on above: Performed By: #### H SANDHYA, CMP #### [facility] [address] [address] [address] Ara Anne Urea nitrogen/Creatinine [Mass ratio] 18.5 mg/mg Normal [facility] Comment on above: Performed By: #### H SANDHYA, CMP #### [facility] [address] [place] [address] Dr. Ara Anne TROPONIN, HIGH SENSITIVITYon 05-05-2022 HSTROP 6.8 pg/mL Normal 4.0-51.3 [facility] Comment on above: Result Comment: CUT- OFF POINTS HAVE BEEN ESTABLISHED BASED ON THE FOURTH UNIVERSAL DEFINITIONS OF MYOCARDIAL INFARCTION. THE UPPER REFERENCE LIMIT (URL) OF TROPONIN, DEFINED THE 99TH PERCENTILE OF cTnI DISTRIBUTION IN A REFERENCE POPULATION, HAS BEEN CONFIRMED THE DECISION THRESHOLD FOR [place] DIAGNOSIS. Performed By: #### H SANDHYA, CMP #### [facility] [address] [place] [address] Dr. Ara Anne XR CHEST 1 Von 05-05-2022 XR CHEST 1 V EXAMINATION: XR CHES T 1 V HISTORY: Asthenia COMPARISON: 04/27/2022 TECHNIQUE: AP portable erect FINDINGS: LUNGS: No significant pulmonary parenchymal abnormalities. VASCULATURE: No increased pulmonary vasculature. PLEURA: No pneumothorax, effusion, or pleural thickening. CARDIAC: No cardiomegaly or cardiac silhouette abnormality. MEDIASTINUM: No visible mass or adenopathy. BONES: No fracture or visible bone lesion. Severe rotatory dextroscoliosis OTHER: Negative. IMPRESSION: No acute disease. Electronically authenticated by: ANGEL CHRISTIAN Date: 2022-05-05 20:56 Normal [facility] CBC AUTO DIFFon 04-27-2022 BASO # 0.1 103/ul Normal 0.0-0.1 [facility] Comment on above: Performed By: #### C BC #### [facility] [address] [address] [address] Ara Anne Basophils/100 WBC (Bld) 0.5 % Normal 0.2-2.0 [facility] Comment on above: Performed By: #### C BC #### [facility] [address] [place] [address] Dr. Ara Anne EO # 0.2 103/ul Normal 0.0-0.7 [facility] Comment on above: Performed By: #### C BC #### [facility] [address] [place] [address] Dr. Ara Anne Eosinophils/100 WBC (Bld) 1.7 % Normal 0.9-7.0 [facility] Comment on above: Performed By: #### C BC #### [facility] [address] [place] [address] Dr. Ara Anne Erythrocyte distribution width (RBC) [Ratio] 11.9 % Normal 11.0-15.0 [facility] Comment on above: Performed By: #### C BC #### [facility] [address] [place] [address] Dr. Ara Anne Hematocrit (Bld) [Volume fraction] 44.3 % Normal 36.0-48.0 [facility] Comment on above: Performed By: #### C BC #### [facility] [address] [place] [address] Dr. Ara Anne Hemoglobin (Bld) [Mass/Vol] 15.1 g/dL Normal 12.0-16.0 [facility] Comment on above: Performed By: #### C BC #### [facility] [address] [place] [address] Dr. Ara Anne IG # 0.04 10e3/ul Critically high 0.00-0.03 [facility] Comment on above: Performed By: #### C BC #### [facility] [address] [place] [address] Dr. Ara Anne IG % 0.3 % Normal 0.0-0.5 [facility] Comment on above: Performed By: #### C BC #### [facility] [address] [place] [address] Dr. Ara Anne LYMPH # 3.0 103/ul Normal 1.2-3.8 [facility] Comment on above: Performed By: #### C BC #### [facility] [address] [place] [address] Dr. Ara Anne Lymphocytes/100 WBC (Bld) 24.9 % Normal 20.5-60.0 [facility] Comment on above: Performed By: #### C BC #### [facility] [address] [place] [address] Dr. Ara Anne MANUAL DIFF REQ NO Normal [facility] Comment on above: Performed By: #### C BC #### [facility] [address] [place] [address] Dr. Ara Anne MCH (RBC) [Entitic mass] 31.9 pg Normal 26.7-34.0 [facility] Comment on above: Performed By: #### C BC #### [facility] [address] [place] [address] Dr. Ara Anne MCHC (RBC) [Mass/Vol] 34.1 g/dL Normal 29.9-35.2 [facility] Comment on above: Performed By: #### C BC #### [facility] [address] [place] [address] Dr. Ara Anne MCV (RBC) [Entitic vol] 93.5 fL Normal 81.0-99.0 [facility] Comment on above: Performed By: #### C BC #### [facility] [address] [place] [address] Dr. Ara Anne MONO # 1.6 103/ul Critically high 0.3-0.8 [facility] Comment on above: Performed By: #### C BC #### [facility] [address] [address] [address] Ara Anne Monocytes/100 WBC (Bld) 13.0 % Critically high 1.7-12.0 [facility] Comment on above: Performed By: #### C BC #### [facility] [address] [address] [address] Ara Anne NEUT # 7.2 103/ul Critically high 1.4-6.5 [facility] Comment on above: Performed By: #### C BC #### [facility] [address] [address] [address] Ara Anne Neutrophils/100 WBC (Bld) 59.6 % Normal 43.0-75.0 [facility] Comment on above: Performed By: #### C BC #### [facility] [address] [address] [address] Ara Anne Platelet mean volume (Bld) [Entitic vol] 10.2 fL Normal 9.5-13.5 [facility] Comment on above: Performed By: #### C BC #### [facility] [address] [address] [address] Ara Anne PLT 221 103/ul Normal 150-450 [facility] Comment on above: Performed By: #### C BC #### [facility] [address] [address] [address] Ara Anne RBC 4.74 106/ul Normal 4.20-5.40 [facility] Comment on above: Performed By: #### C BC #### [facility] [address] [address] [address] Ara Anne WBC 12.0 103/ul Critically high 4.0-11.0 [facility] Comment on above: Performed By: #### C BC #### [facility] [address] [address] [address] Ara Anne PROF 14(COMP METB)on 022 Albumin [Mass/Vol] 3.9 g/dL Normal 3.4-5.0 [facility] Comment on above: Performed By: #### I NSULIN #### [facility] [address] [address] [address] Ara Anne Albumin/Globulin [Mass ratio] 1.1 {ratio} Normal [facility] Comment on above: Performed By: #### I NSULIN #### [facility] [address] [address] [address] Ara Anne ALP [Catalytic activity/Vol] 85 U/L Normal 46-116 [facility] Comment on above: Performed By: #### I NSULIN #### [facility] [address] [address] [address] Ara Anne ALT [Catalytic activity/Vol] 31 U/L Normal 14-59 [facility] Comment on above: Performed By: #### I NSULIN #### [facility] [address] [place] [address] Dr. Ara Anne Anion gap [Moles/Vol] 14.8 mmol/L Normal [facility] Comment on above: Performed By: #### I NSULIN #### [facility] [address] [place] [address] Dr. Ara Anne AST [Catalytic activity/Vol] 24 U/L Normal 15-37 [facility] Comment on above: Performed By: #### I NSULIN #### [facility] [address] [place] [address] Dr. Ara Anne Bilirubin [Mass/Vol] 0.2 mg/dL Normal 0.2-1.0 [facility] Comment on above: Performed By: #### I NSULIN #### [facility] [address] [place] [address] Dr. Ara Anne Calcium [Mass/Vol] 8.7 mg/dL Normal 8.5-10.1 [facility] Comment on above: Performed By: #### I NSULIN #### [facility] [address] [address] [address] Ara Anne Chloride [Moles/Vol] 100 mmol/L Normal 98-107 [facility] Comment on above: Performed By: #### I NSULIN #### [facility] [address] [address] [address] Ara Anne CO2 [Moles/Vol] 25.8 mmol/L Normal 21.0-32.0 [facility] Comment on above: Performed By: #### I NSULIN #### [facility] [address] [address] [address] Ara Anne Creatinine [Mass/Vol] 0.93 mg/dL Normal 0.55-1.02 [facility] Comment on above: Performed By: #### I NSULIN #### [facility] [address] [address] [address] Ara Anne EGFR-AF HAITIAN >60 Normal >=60 [facility] Comment on above: Performed By: #### I NSULIN #### [facility] [address] [place] [address] Dr. Ara Anne EGFR-NON AF HAITIAN >60 Normal >=60 [facility] Comment on above: Performed By: #### I NSULIN #### [facility] [address] [place] [address] Dr. Ara Anne Globulin (S) [Mass/Vol] 3.6 g/dL Normal [facility] Comment on above: Performed By: #### I NSULIN #### [facility] [address] [place] [address] Dr. Ara Anne Glucose [Mass/Vol] 129 mg/dL Critically high 74-106 [facility] Comment on above: Performed By: #### I NSULIN #### [facility] [address] [address] [address] Ara Anne Potassium [Moles/Vol] 3.6 mmol/L Normal 3.5-5.1 [facility] Comment on above: Performed By: #### I NSULIN #### [facility] [address] [address] [address] Ara Anne Protein [Mass/Vol] 7.5 g/dL Normal 6.4-8.2 [facility] Comment on above: Performed By: #### I NSULIN #### [facility] [address] [address] [address] Ara Anne Sodium [Moles/Vol] 137 mmol/L Normal 136-145 [facility] Comment on above: Performed By: #### I NSULIN #### [facility] [address] [place] [address] Dr. Ara Anne Urea nitrogen [Mass/Vol] 15.0 mg/dL Normal 7.0-18.0 [facility] Comment on above: Performed By: #### I NSULIN #### [facility] [address] [place] [address] Dr. Ara Anne Urea nitrogen/Creatinine [Mass ratio] 16.1 mg/mg Normal [facility] Comment on above: Performed By: #### I NSULIN #### [facility] [address] [place] [address] Dr. Ara Anne PROTIMEon 04-27-2022 INR Coag (PPP) [Relative time] 0.95 {INR} Normal [facility] Comment on above: Performed By: #### P T, PTT #### [facility] [address] [place] [address] Dr. Ara Anne INR GUIDELINES SEE BELOW Normal [facility] Comment on above: Result Comment: ROBE RED INR: 2.0 - 3.0 CONDITIONS NOT LISTED BELOW 2.5 - 3.5 FOR PROSTHETIC HEART VALVE REPLACEMENT 2.5 - 3.5 RECURRENT THROMBOSIS Performed By: #### P T, PTT #### [facility] [address] [place] [address] Dr. Ara Anne PT Coag (PPP) [Time] 10.3 s Normal 9.0-11.6 [facility] Comment on above: Performed By: #### P T, PTT #### [facility] [address] [place] [address] Dr. Ara Anne PTTon 04-27-2022 aPTT Coag (Bld) [Time] 28.1 s Normal 22.3-36.2 [facility] Comment on above: Performed By: #### P T, PTT #### [facility] [address] [place] [address] Dr. Ara Anne TROPONIN, HIGH SENSITIVITYon 04-27-2022 HSTROP 16.5 pg/mL Normal 4.0-51.3 [facility] Comment on above: Result Comment: CUT- OFF POINTS HAVE BEEN ESTABLISHED BASED ON THE FOURTH UNIVERSAL DEFINITIONS OF MYOCARDIAL INFARCTION. THE UPPER REFERENCE LIMIT (URL) OF TROPONIN, DEFINED THE 99TH PERCENTILE OF cTnI DISTRIBUTION IN A REFERENCE POPULATION, HAS BEEN CONFIRMED THE DECISION THRESHOLD FOR [place] DIAGNOSIS. Performed By: #### I NSULIN #### [facility] [address] [address] [address] Ara Anne TSHon 04-27-2022 TSH 0.689 uIU/mL Normal 0.358-3.740 [facility] Comment on above: Performed By: #### I NSULIN #### [facility] [address] [address] [address] Ara Anne XR CHEST 1 Von 04-27-2022 XR CHEST 1 V EXAMINATION: XR CHES T 1 V HISTORY: Chest pain COMPARISON: None. TECHNIQUE: Portable chest FINDINGS: The lung parenchyma is free of consolidation or infiltrate. No pneumothorax or pleural effusion. The cardiac, mediastinal and hilar contours are normal. Dextrocurvature of the thoracic spine. The visualized osseous structures exhibit no acute abnormality. IMPRESSION: No acute cardiopulmonary abnormality. Electronically authenticated by: ANGEL FITCH Date: 2022-04-27 16:19 Normal [facility] SCREENING MAMMOGRAM W/MAUREEN, BILATERAL*on 07-20-2021 SCREENING MAMMOGRAM W/MAUREEN, BILATERAL* CLINICAL HISTORY: Screening Mammogram COMPARISON: Priors from 2020, 2018, 2017, 2016 TECHNIQUE: 2D and 3D mammogram imaging of both breasts was performed. RESULT: DENSITY: Heterogeneously dense, which may obscure small masses. There is no suspicious mass, asymmetry, architectural distortion, or calcification. No significant change since the prior mammograms. IMPRESSION: BIRADS 1 : NEGATIVE, NORMAL INTERVAL FOLLOW UP FOLLOW UP: 12 months DENSITY: Heterogeneously dense MAMMOGRAPHY IS VERY IMPORTANT TO YOUR HEALTH. THE CURRENT [place] [employer] OF [employer] AND [employer]WORK GUIDELINES RECOMMENDS ANNUAL MAMMOGRAPHY BEGINNING AT AGE 40 THIS FACILITY USES A REMINDER SYSTEM TO ENSURE ALL PATIENTS RECEIVE REMINDER NOTIFICATIONS AT THE APPROPRIATE TIME BASED ON THE RECOMMENDATIONS OF THIS EXAM. Board Certified Radiologist. Accredited by the ACR and FDA. Report reported and signed by Kevin Carlos on 07/20/[address] [facility] Counter Supervisor Vital Signs Date Time Vital Sign Value Performing Clinician Aubrie broussard 12-15-2024 13:23-0400 Body height 167.6 cm Deni Itzkowitz DO Work Phone: [facility] 12-15-2024 13:23-0400 Body mass index (BMI) [Ratio] 23.4 kg/m2 Deni Itzkowitz DO Work Phone: [facility] 12-15-2024 13:23-040 Body weight 65.77 kg Deni Itzkowitz DO Work Phone: [facility] Healthcare Encounters Encounter Date Encounter Type Care Provider Facility Start: 12-15-2024 End: 12-15-2024 Office outpatient visit 40 minutes Deni H Itzkowitz DO Work Phone: [facility] Comment on above: Malignant neoplasm o f right breast in female, estrogen receptor positive, unspecified site of breast (HCC) (Primary Dx) Start: 12-15-2024 End: 12-15-2024 ambulatory DENI H ITZKOWITZ Not Available Start: 12-08-2024 End: 12-08-2024 ambulatory Stephen Madera Facility:[facility] Start: 12-02-2024 End: 12-02-2024 ambulatory Deni Itzkowitz Facility:[facility] Start: 11-25-2024 End: 11-25-2024 ambulatory STEPHEN MADERA Not Available Start: 11-18-2024 End: 11-18-2024 ambulatory STEPHEN M CHEPEY Not Available Start: 10-13-2024 End: 10-13-2024 ambulatory Isma Hopkins [facility] Work Phone: Start: 10-13-2024 End: 10-13-2024 Departed Referred Isma Hopkins MD Work Phone: [facility] Path Spec [facility] Start: 06-08-2022 Encounter for genera l adult medical examination without abnormal findings DR STEPHEN MADERA [facility] Start: 06-03-2022 End: 06-04-[address] STEPHEN MADERA Facility:[facility] Start: 06-03-2022 End: 06-04-2022 Encounter for general adult medical examination without abnormal findings DR STEPHEN MADERA Facility:[facility] Start: 05-07-2022 End: 05-07-2022 ambulatory [facility] Start: 05-05-2022 End: 05-05-[address] STEPHEN MADERA Facility:[facility] Start: 04-27-2022 End: 04-27-2022 ambulatory BLAYNE SMITH Facility:[facility] Plan of Treatment Date Care Activity Detail Author Start: 12-29-2024 End: 12-29-2024 Patient encounter procedure 12/29/2024 1:15 PM EDT Office Visit [facility] [address] [id number] Deni Rocha DO [address] [place] [address] [facility] Start: 12-15-2024 End: 02-14-2026 MR Breast - bilateral WO and W contrast IV Bilateral breast MR with and without contrast Imaging Routine Malignant neoplasm of right breast in female, estrogen receptor positive, unspecified site of breast (HCC) Expected: 12/15/2024, Expires: 02/14/2026 [facility] Work Phone: Comment on above: Expected: 12/15/2024 , Expires: 02/14/2026 Start: 10-13-2024 Bacteria identified in Urine by Culture Urine Culture [facility] Start: 10-13-2024 Urine culture [facility] Payers Date Payer Category Payer Self-pay 2024 Medicare MEDICARE [id number] 2024 Private Health Insurance RAJESH Kendrick embdora [id number] 2024 Medicare [id number] 2024 Private Health Insurance I [id number] 2021 Unknown [id number] 1960 Unknown [id number] [id number] 1959 Unknown [id number] [id number]. [id number] 1959 Unknown [id number] [id number]. [id number] 1959 Unknown [id number] [id number]. 2.1259 1959 Unknown [id number] [id number]. 2.1259 1959 Unknown [id number] [id number]. 2.1259 1959 Unknown [id number] [id number]. 2.1259 Unknown [facility] [id number] Unknown [id number] [id number] [id number] Unknown [id number] [id number]. 2.531 Unknown [id number] [id number]. 2.531 Social History Date Type Detail Facility [facility] Work Phone: Start: 10-14-2024 Sex Female (finding) [facility] Start: 1960 Sex Assigned At Female F [facility] Start: 12-15-2024 [facility] Never smoked tobacco [facility] Start: 12-15-2024 Tobacco use and exposure Smokeless tobacco non-user [facility] Start: 12-15-2024 Alcoholic beverage intake Current drinker of alcohol (finding) [facility] Start: 12-15-2024 History of Social function [facility] Start: 12-15-2024 Tobacco use panel [facility] Start: 1960 Sex assigned at Not on file [facility] History of Present illness Narrative 12-15-2024 Deni Rocha, DO - 12/15/2024 1:30 PM EDT Note Date & Type Note Facility 12-15-2024 History of Presen t illness Narrative Images from the original note were not included. Bianca Toledo 1960 Bianca Toledo is a 64 y.o. female presents with chief complaint of Bx results (Breast clinic pt.) HPI: JAQUELINE Valenzuela was initially seen in the breast clinic cfor workup abnormal mammography. She denied any masses or skin changes but had two areas in the right breast of concern on imaging. She presents for the biopsy results SUBJECTIVE: MEDICATIONS: ALLERGIES No current outpatient medications Not on File PAST MEDICAL HISTORY: SOCIAL HISTORY SURGICAL HISTORY: No past medical history on file. No past surgical history on file. FAMILY HISTORY No family history on file. REVIEW OF SYMPTOMS: Review of Systems Constitutional: Negative for diaphoresis and unexpected weight change. HENT: Negative for hearing loss, tinnitus and voice change. Respiratory: Negative for shortness of breath. Cardiovascular: Negative for chest pain and palpitations. Musculoskeletal: Negative for arthralgias. Neurological: Negative for dizziness, seizures and headaches. All other systems reviewed and are negative. Hematological: Negative for adenopathy. Does not bruise/bleed easily. OBJECTIVE: Visit Vitals OB Status Hysterectomy Physical Exam Exam conducted with a osteopathy doctor present. HENT: Head: Normocephalic. Cardiovascular: Rate and Rhythm: Normal rate and regular rhythm. Pulmonary: Effort: Pulmonary effort is normal. Breath sounds: Normal breath sounds. Chest: Comments: Bilateral supraclavicular, infraclavicular, bicipital and axillary lymph nodes were found to be normal. Each breast was examined in the sitting and supine position, there was no evidence of masses, dimpling or discharge in either breast. She has ecchymosis at both biopsy sites. Abdominal: General: Abdomen is flat. Bowel sounds are normal. Palpations: Abdomen is soft. Skin: General: Skin is warm and dry. Neurological: Mental Status: She is alert. ASSESSMENT AND PLAN: Assessment/Plan Diagnoses and all orders for this visit: Malignant neoplasm of right breast in female, estrogen receptor positive, unspecified site of breast (HCC) - Bilateral breast MR with and without contrast; Future Kayleigh presents with her sister for the path results. Both sites were positive for IMC The site at 2:00 is ER+ ME neg and the site at 8:00 is ER/ME pos. Her 2 is pending on both. I informed the patient of the diagnosis of RIGHT breast cancer at both sites. I explained that we need to do a breast MRI to make sure these are the only lesions in the beast. I briefly discussed the surgical options to include a mastectomy with immediate or delayed reconstruction vs a lumpectomy with the possible addition of radiation therapy, and that I will need to evaluate the LN surgically. If the MRI shows additional sites of cancer we may only be able to offer a mastectomy. The patient was informed that after surgical treatments is completed she will be referred to Hem/Onc and Rad Onc for consideration of additional treatment options. We discussed the indications for genetic testing to see if she is a carrier of the BRCA or PALB2 genes as well as others. I explained that the results will alter the surgical recommendations if she is positive. A positive result will also raise questions about treatments to reduce her risk for other cancers. In addition the results are important for her family as others may need to be tested to see if they are carriers as well. I explained we do a blood draw in the office and will have the results in 7-10 days. She is in agreement and gave permission for the testing to be completed. I will have her return to review the results of the testing and to plan for surgery. 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 she was recently admitted to [facility] on 04/27/2022 with SVT. she was given adenosine initial dose was unsuccessful. a second dose was successful in terminating to sinus. EKG reviewed 05/12/2022 at 3 PM initially showed a narrow complex tachycardia at 64 bpm with a short RP interval suggestive of AVNRT. She has high anxiety and feels her heart race at times. She was unable to tolerate metoprolol due to dizziness and fatigue. she was initially prescribed 25 mg once a day which was increased to 50 mg twice a day by Dr. Madera. patient was unable to tolerate this and became quite lethargic and tired and had to be brought to the hospital on 06/02/2022. EP study performed on 04/25/[address] Jamison In the lab spontaneous tachycardia was induced with the VA interval of 5 ms suggestive of AVNRT with rate of 160 bpm and later on with Isuprel it was 180 bpm. Ablation was replaced into the nonirrigated catheter with a junctional's noted. Post ablation single echo beat was noted with no tachycardia was induced. Review of Systems Cardiovascular: Positive for palpitations. Respiratory: Positive for cough. All other systems reviewed and are negative. PMH: No past medical history on file. PSH: No past surgical history on file. SH: Social Determinants of Health Tobacco Use: Not on file Alcohol Use: Not on file Financial Resource Strain: Not on file Food Insecurity: Not on file Transportation Needs: Not on file Physical Activity: Not on file Stress: Not on file Social Connections: Not on file Intimate Partner Violence: Not on file Depression: Not on file Housing Stability: Not on file Meds: No current outpatient medications on file prior to visit. No current facility-administered medications on file prior to visit. ROS: Cardio Basic Cardiovascular Symptoms: no lightheadedness, no leg edema, no syncope, no orthopnea, no PND, no claudication, Constitutional Constitutional: no fever, no night sweats, no significant weight gain, no significant weight loss, no exercise intolerance Eyes Eyes: no dry eyes, no irritation, no vision change ENMT Ears: no difficulty hearing, no ear pain Nose: no frequent nosebleeds, Mouth/Throat: no sore throat, no bleeding gums, no snoring, no dry mouth, no mouth ulcers, no oral abnormalities, no teeth problems Respiratory Respiratory: no cough, no wheezing, no coughing up blood, no sleep apnea Musculoskeletal Musculoskeletal: no muscle aches, no muscle weakness, joint pain+, no back pain, no swelling in the extremities Integumentary Skin no rash, no ulcer, no varicosities, no discoloration, no pruritus Neurologic Neurologic: no loss of consciousness, no weakness, no numbness, no seizures, no dizziness, no headaches Psychiatric Psych: no depression, feeling safe in relationship, no alcohol abuse, Hematologic/Lymphatic Hematologic/Lymphatic no swollen glands, no bruising Physical Exam: Constitutional General Appearance: well-nourished, well-developed, appears stated age Level of Distress: comfortable Psychiatric Mental Status: alert, normal affect Orientation: oriented to time, place, and person Insight: good judgement Eyes Lids and Conjunctivae: non-injected, no xanthelasma ENMT Ears: no lesions on external ear Nose: no lesions on external nose Oropharynx: no cyanosis, no pallor Neck Neck: supple, trachea midline Carotid Arteries: bilateral normal upstroke, no bruits Jugular Veins: normal jugular venous pressure Thyroid: not enlarged Lungs Respiratory Effort: unlabored Chest Exam: normal curvature, no thoracic deformity Auscultation: clear, no wheezing, no rales, no rhonchi Cardiovascular Rate And Rhythm: regular Heart Sounds: normal S1, normal s2, no gallop Systolic Murmur: not heard Diastolic Murmur: not heard Extremities: no cyanosis, no edema, no peripheral signs of emboli Peripheral Pulses Radial Pulse: normal Abdomen Inspection and Palpation: soft, non distended, no bruit, non tender Musculoskeletal Inspection: no joint swelling Neurologic Gait: normal gait Skin Inspection and Palpation: warm and dry Nails: no clubbing Labs: @LABRESULTS@ EKG: No results found for this or any previous visit (from the past 4464 hour(s)). Echo: No echocardiogram results found for the past 12 months Stress test: Coronary angiogram: @CATH@ Diagnostic Imaging: No images are attached to the encounter. 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 given the fact that she is unable to tolerate beta-blockers I have advised her to come off this medication. she will check her bl (more content not included)... [facility] Evaluation note Note Date & Type Note Facility Evaluation note No assessment information availa [facility] Work Phone: Evaluation note Note Date & Type Note Facility Evaluation note Diagnosis Malignant neoplasm of right breast in female, estrogen receptor positive, unspecified site of breast (HCC)- Primary documented in this encounter [facility] Summary Purpose Family History No Family History Records FoundNo Family History Records FoundNo Family History Records FoundNo Family History Records FoundNo Family History Records Found Advance Directives No Advanced Directives Records Found Advance Directive Response Recorded Date/ Time Advance Directives No March 26, 2017 1:39pm Additional Source Comments INFORMATION SOURCE (unrecogn ized section and content) DATE CREATED AUTHOR 07/21/2021 [facility] dical Specialist DATE CREATED AUTHOR AUTHOR'S ORGANIZ ATION 05/10/2022 [facility] DATE CREATED AUTHOR AUTHOR'S ORGANIZ ATION 06/14/2022 [facility] pital DATE CREATED AUTHOR AUTHOR'S ORGANIZ ATION 12/16/2024 [facility] dical Specialists EPIC DATE CREATED AUTHOR AUTHOR'S ORGANIZ ATION 12/18/2024 [facility] y[facility] Care Teams (unrecognized sec tion and content) Team Status: Inactive Member Role Status Dates Isma Hopkins MD Attending Provider Active St art: October 13, 2024 End: October 13, 2024 Supervisor Loading Relationship Specialty Start Date End Date Stephen Madera MD [address] [place] [address] PCP - General Family Medicine 11/30/24 Goals (unrecognized section and content) Goals may be documented in a n alternate section Reason for Visit (unrecogniz ed section and content) Reason Comments Bx results Breast clinic pt. FOR RECORDS PERTAINING TO PATIENTS WHO ARE OR HAVE BEEN ENROLLED IN A CHEMICAL DEPENDENCY/SUBSTANCEABUSE PROGRAM, SOME INFORMATION MAY BE OMITTED. This clinical summary was aggregated from multiple sources. Caution should be exercised in using it in the provision of clinical care. This summary normalizes information from multiple sources, and as a consequence, information in this document may materially change the coding, format and clinical context of patient data. In addition, data may be omitted in some cases. CLINICAL DECISIONS SHOULD BE BASED ON THE PRIMARY CLINICAL RECORDS. [facility]. provides no warranty or guarantee of the accuracy or completeness of information in this document.
--- NOTE | 2024-12-25 03:11 | ED.NAVMDI1 ---
HPI - Nausea/Vomiting/Diarrhea General Chief complaint: Nausea/Vomiting/Diarrhea Stated complaint: TOOK ANTIDEPRESSENT/ HEAD THROB/ DOESN'T FEEL RIG Time Seen by Provider: 12/25/24 03:05 Source: patient Mode of arrival: walk-in History of Present Illness HPI Narrative: recent diagnosis of CA which has her depressed. Started on Lexapro for depression. Developed nausea the first day after taking it. Advised by her doctor to take 1/2 the dose to allow her body time to adjust. She did not take dose yesterday because of the worsening nausea had her sister bring her to the ER this AM for nausea. No headache. No pain or weakness/fever Related Data Home Medications �Medication �Instructions �Recorded �Confirmed hyoscyamine 0.15 mg tablet 0.125 mg PO TID 10/13/24 10/13/24 levothyroxine 100 mcg tablet 100 mcg PO DAILY 10/13/24 10/13/24 lovastatin 20 mg tablet 20 mg PO DAILY 10/13/24 10/13/24 Allergies Allergy/AdvReac Type Severity Reaction Status Date / Time No Known Drug Allergies Allergy Verified 12/25/24 02:32 Review of Systems ROS Status of ROS 10 or more systems reviewed and unremarkable except as noted in history and below PFSH PFSH Social History Little interest or pleasure in doing things: not at all Feeling down, depressed, or hopeless: not at all Exam Constitutional Vital Signs, click to edit/add: Last Vital Signs Temp 97.6 F 12/25/24 02:32 Pulse 70 12/25/24 05:30 Resp 16 12/25/24 05:30 BP 152/88 H 12/25/24 04:30 Pulse Ox 98 12/25/24 04:30 O2 Del Method Room Air 12/25/24 02:32 Common normals: no apparent distress, average body habitus, oriented x3, no limitations, healthy appearing, alert and well nourished [facility] Common normals: normocephalic and head/scalp atraumatic Eye Common normals: EOMs intact bilaterally and conjunctivae normal Respiratory Common normals: normal respiratory effort, no retractions, no use of accessory muscles and clear to auscultation bilaterally Cardio Common normals: regular rate, regular rhythm, S1 normal heart sound and S2 normal heart sound GI Common normals: Normal to inspection, nondistended, normoactive bowel sounds present, soft to palpation and non-tender Extremity Common normals: normal to inspection and full ROM Neuro Common normals: oriented x3, CN's II-XII intact bilaterally and moves all extremities Psych Appearance: grossly normal Course Vital Signs Vital signs: Vital Signs Blood Pressure 181/100 H 12/25/24 02:30 Pulse Oximetry 98 12/25/24 02:30 Temperature 97.6 F 12/25/24 02:32 Pulse Rate 70 12/25/24 05:30 Respiratory Rate 16 12/25/24 05:30 Blood Pressure 152/88 H 12/25/24 04:30 Pulse Oximetry 98 12/25/24 04:30 Oxygen Delivery Method Room Air 12/25/24 02:32 MDM - Nausea/Vomiting/Diarrhea MDM Narrative Medical decision making narrative: patient presents with complaint of nausea once she started lexapro. She came in because of the persistent nausea and has stop taking nausea. Given dose of zofran and nausea is better. UA suspicious for UTI. she has no complaint of dysuria, urgency or frequency and no abdominal pain. UA sent for culture. Keflex ordered to treat UA Lab Data Labs: Lab Results 12/25/24 12/25/24 Range/Units 03:25 05:36 WBC 10.9 (4.0-11.0) 10^3/uL RBC 4.69 (4.20-5.40) 10^6/uL Hgb 14.9 (12.0-16.0) g/dL Hct 43.9 (36.0-48.0) % MCV 93.6 (81.0-99.0) fL MCH 31.8 (26.7-34.0) pg MCHC 33.9 (29.9-35.2) g/dL RDW 11.9 (11.0-15.0) % Plt Count 259 (150-450) 10^3/uL MPV 9.9 (9.5-13.5) fL Neut % (Auto) 64.3 (43.0-75.0) % Lymph % (Auto) 24.6 (20.5-60.0) % [place] % (Auto) 8.5 (1.7-12.0) % Eos % (Auto) 1.7 (0.9-7.0) % Baso % (Auto) 0.6 (0.2-2.0) % Neut # (Auto) 7.0 H (1.4-6.5) 10^3/uL Lymph # (Auto) 2.7 (1.2-3.8) 10^3/uL [place] # (Auto) 0.9 H (0.3-0.8) 10^3/uL Eos # (Auto) 0.2 (0.0-0.7) 10^3/uL Baso # (Auto) 0.1 (0.0-0.1) 10^3/uL Abs Immat Gran (auto) 0.03 (0.00-0.03) 10^3/uL Imm/Tot Granulo (auto) 0.3 (0.0-0.5) % Sodium 141 (136-145) mmol/L Potassium 3.4 L (3.5-5.1) mmol/L Chloride 103 (98-107) mmol/L Carbon Dioxide 30.0 (21.0-32.0) mmol/L Anion Gap 11.4 BUN 15.0 (7.0-18.0) mg/dL Creatinine 0.67 (0.55-1.02) mg/dL Est GFR ( Amer) >60 (>=60 mL/min/1.73m^2) Est GFR (Non-Af Amer) >60 (>=60 mL/min/1.73m^2) BUN/Creatinine Ratio 22.4 Glucose 98 (74-106) mg/dL Lactate 1.1 (0.4-2.0) mmol/L Calcium 9.5 (8.5-10.1) mg/dL Total Bilirubin 0.4 (0.2-1.0) mg/dL AST 10 L (15-37) U/L ALT 13 L (14-59) U/L Alkaline Phosphatase 74 (46-116) U/L Troponin I High Sens 5.5 (4.0-51.3) pg/mL Total Protein 7.1 (6.4-8.2) g/dL Albumin 3.5 (3.4-5.0) g/dL Globulin 3.6 g/dL Albumin/Globulin Ratio 1.0 Urine Color Lt. yellow (YELLOW) Urine Clarity Clear (CLEAR) Urine pH 6.0 (5.0-9.0) Ur Specific [place] 1.015 (1.005-1.025) Urine Protein Negative (NEG/TRACE) mg/dL Urine Glucose (UA) Negative (NEGATIVE) mg/dL Urine Ketones 15 A (NEGATIVE) mg/dL Urine Occult Blood Negative (NEGATIVE) Urine Nitrite Negative (NEGATIVE) Urine Bilirubin Negative (NEGATIVE) Urine Urobilinogen 0.2 (0.2-1.0) EU/dL Ur Leukocyte Esterase Small A (NEGATIVE) Urine RBC 0-2 (0-2) #/HPF Urine WBC 5-10 A (NONE SEEN) #/HPF Ur Squamous Epith Cells Rare (NONE/RARE) #/LPF Urine Crystals None seen (None Seen) #/HPF Urine Bacteria Trace A (NONE SEEN) #/HPF Urine Casts None seen (NONE SEEN) #/LPF Urine Mucus None seen (NONE SEEN) Ur [place] [place] Discharge Chief Complaint: Nausea/Vomiting/Diarrhea Clinical Impression: Adverse drug effect, Nausea, Acute UTI Patient Disposition: Home, Self-Care Prescriptions / Home Meds: No Action levothyroxine 100 mcg tablet 100 mcg PO DAILY lovastatin 20 mg tablet 20 mg PO DAILY hyoscyamine 0.15 mg tablet 0.125 mg PO TID Print Language: Yoruba Instructions: Urinary Tract Infection in Women (ED), Acute Nausea and Vomiting (DC) Additional Instructions: discontinue lexapro. Use Zofran as needed for nausea. Follow up with your doctor in next 2-3 days for recheck Referrals: Mateusz Madera MD [Primary Care Provider, Family Practice] - 1 week Discharge Date/Time: 12/25/24 06:34
[2024-12-25 03:37] LABS: Hematocrit 43.9 % (36.0-48.0); Hemoglobin 14.9 g/dL (12.0-16.0); Immature Granulocytes Abs Auto 0.03 10^3/uL (0.00-0.03); Immature Granulocytes Pct Auto 0.3 % (0.0-0.5); Lymphocytes Absolute Auto 2.7 10^3/uL (1.2-3.8); Mean Corpuscular HGB Conc 33.9 g/dL (29.9-35.2); Mean Corpuscular Hemoglobin 31.8 pg (26.7-34.0); Mean Corpuscular Volume 93.6 fL (81.0-99.0); Platelet Count 259 10^3/uL (150-450); Red Blood Count 4.69 10^6/uL (4.20-5.40); White Blood Count 10.9 10^3/uL (4.0-11.0)
[2024-12-25] MEDS: 0.9 % SODIUM CHLORIDE 1,000 ML 999 ML IV (03:40)
[2024-12-25 04:01] LABS: Alanine Aminotransferase 13 U/L (14-59); Albumin Globulin Ratio 1.0; Albumin Level 3.5 g/dL (3.4-5.0); Alkaline Phosphatase 74 U/L (46-116); Anion Gap 11.4; Aspartate Amino Transferase 10 U/L (15-37); Blood Urea Nitrogen 15.0 mg/dL (7.0-18.0); Calcium 9.5 mg/dL (8.5-10.1); Carbon Dioxide 30.0 mmol/L (21.0-32.0); Chloride 103 mmol/L (98-107); Estimated GFR (African America >60 (>=60 mL/min/1.73m^2); Estimated GFR (Non-African Ame >60 (>=60 mL/min/1.73m^2); Globulin 3.6 g/dL; Glucose 98 mg/dL (74-106); Lactate/Lactic Acid 1.1 mmol/L (0.4-2.0); Potassium 3.4 mmol/L (3.5-5.1); Sodium 141 mmol/L (136-145); Total Protein 7.1 g/dL (6.4-8.2)
[2024-12-25 05:42] LABS: Glucose Urine UA NEGATIVE (NEGATIVE)
[2024-12-25 05:47] LABS: Cast Seen? NONE SEEN #/LPF (NONE SEEN); Crystals Seen? None Seen #/HPF (None Seen); Urine Culture Indicated YES-FRMC
[2024-12-25] MEDS: ONDANSETRON 4 MG RAPDIS TABLET SL (06:20)
[2024-12-25] MEDS: CEPHALEXIN 500 MG CAPSULE PO (06:21)
== END 2024-12-25 06:34 | disposition home or self-care (01) ==
PROVIDERS: Emergency Provider Internal Medicine; PCP Family Medicine
DX: R11.0 Nausea (principal); N39.0 Urinary tract infection, site not specified; T43.225A Adverse effect of selective serotonin reuptake inhibitors, initial encounter; F32.A Depression, unspecified; C80.1 Malignant (primary) neoplasm, unspecified
CPT/HCPCS: 36415; 80053; 81001; 82948; 83605; 84484; 85025; 87086; 87088; 93005; 96374; 99284; J2405; Q0162

== ENCOUNTER 2025-05-11 12:55 | Outpatient (OUT) | payer MEDICARE, SELFPAY ==
--- OUTSIDE RECORDS SUMMARY | 2025-05-11 13:03 | XMS_ITS | Clinical Summary ---
Author Organization [facility] Address [address] [place] [address] Care Team Providers Care Mill Order Scheduler Name Role Phone Mateusz Madera MD Primary Care Provider [phone] Allergies Active AllergyReactionsCriticalityNoted DateCommentsEscitalopramDizziness 01/18/20259869Osvxhhgios10/15/2022 Medications MedicationSigDispense QuantityRefillsLast FilledStart DateEnd DateStatus levothyroxine (Synthroid, Levoxyl) 100 MCG tablet Take 100 mcg by mouth Daily5Active lovastatin (Mevacor) 20 MG tablet 5Active ALPRAZolam (Xanax) 0.25 MG tablet Take 0.25 mg by mouth in the morning and 0.25 mg in the evening and 0.25 mg before bedtime.5Active omeprazole (PriLOSEC) [address] capsule Daily5Active metoprolol tartrate (Lopressor) 25 MG tablet Twice daily5Active letrozole (Femara) 2.5 MG chemo tablet Take 2.5 mg by mouth Daily.5Active Active Problems ProblemNoted DateDiagnosed DateMalignant neoplasm of right breast in female, estrogen receptor sstgeinv54/25/2025 Resolved Problems ProblemNoted DateDiagnosed DateResolved DateEncounter for screening for etbveowdtfjs02reast mass, right Gastroesophageal reflux jtrvaqr20Hypothyroidism03/16/2025 03/16/20257609Isiyds028313Zltypdqeoplbtizpsnyc11/24/202509/24/2025 Tobfnfufjgcf29Status post veycbcvmfnam97 Xeqrrhd40/27/ Encounters DateTypeDepartmentCare DsjwYlrdhajlpex44/30/2025 9:30 AM EDTOffice Visit [facility] [address] [place] [address] [place] [address] Deni Phillips DO Malignant neoplasm of right breast in female, estrogen receptor positive, unspecified site of breast (HCC) (Primary Dx)04/21/20251412Pyraca42/28/2025Travel 04/11/2025 2:15 PM EDTOffice Visit [facility] [address] [place] [address] Christoph Prakash, Thyroid nodule (Primary Dx)04/11/2025amboo flowsheet [facility] [address] [place] [address] Christoph Prakash, 04/11/20250429Foffdz70/13/1349Omrben01/29/2025 1:00 PM EDTOffice Visit [facility] [place] [facility] [address] [place] [address] Christoph Prakash, Thyroid nodule (Primary Dx)03/21/2025amboo flowsheet [facility] [place] [facility] [address] [place] [address] Christoph Prakash, DO 03/21/20256024Hwuldi55/24/2025 3:30 PM EDTOffice Visit [facility] [address] [place] [address] Christoph Prakash, DO Multiple thyroid nodules (Primary Dx)03/16/2025Orders Only [facility] [address] [place] [address] [address] [place] [address] [phone] Deni Phillips DO 03/16/20257011Ecfcnn92/29/2025 10:45 AM EDTOffice Visit [facility] [address] [place] [address] [address] [place] [address] Deni Phillips, Malignant neoplasm of right breast in female, estrogen receptor positive, unspecified site of breast (HCC) (Primary Dx)02/18/20251443Eljshx92/28/2025bstract [facility] Timothy Bo MD 02/09/2025Orders Only [facility] [address] [place] [address] [address] [place] [address] Deni Phillips DO from Last 3 Months Family History Medical HistoryRelationNameCommentsStrokeFatherMelanomaMotherBreast cancer Paternal GrandmotherColon cancerNeg HxOvarian cancerNeg HxPancreatic cancerNeg TbVmzznujnMoriHmwdgwNvffagixSburqpn0KqctuzPvjapkugHyyooxVpegrvrsGutcvawv GrandmotherSister3 Social History Tobacco UseTypesPacks/DayYears UsedDateSmoking Tobacco: NeverSmokeless Tobacco: Never Tobacco Cessation:Counseling Given: Not Answered Alcohol UseStandard Drinks/WeekCommentsYes0 (1 standard drink = 0.6 oz pure alcohol)CommentsNoSex and Gender InformationValueDate RecordedSex Assigned at BirthNot on fileLegal RxqWtlhcw94/15/2023 6:46 PM EDTGender Identity Not on fileSexual OrientationNot on file Last Filed Vital Signs Vital SignReadingTime TakenCommentsBlood Mrzlsizx217/9011/ 12:00 PM EST Pulse--Temperature--Respiratory Rate--Oxygen Saturation--Inhaled Oxygen Concentration--Wtgfqu44.8 kg (145 lb)04/21/2025 9:16 AM NPDRyzihf011.6 cm (5' 6 )04/21/2025 9:16 AM EDTBody Mass Index23.410 9:16 AM EDT Plan of Treatment DateTypeDepartmentCare Team (Latest Contact Info)Hucsnuempzu52/06/2026 9:30 AM ESTOffice Visit [facility] [address] [phone] Deni Phillips, DO [address] [address] 10/11/2025 10:15 AM EDTOffice Visit [facility] [address] [place] [address] Christoph Prakash, DO [address] [place] [address] Insurance Care Teams Team MemberRelationshipSpecialtyStart DateEnd Mateusz Madera MD [address] [place] [address] PCP - GeneralFamily Medicine11/30/24
--- OUTSIDE RECORDS SUMMARY | 2025-05-11 13:03 | XMS_ITS | Clinical Summary ---
Author Organization [facility] Address [address] [place] [address] Care Team Providers Care Degreasing Solution Mixer Name Role Phone Mateusz Madera MD Primary Care Provider [phone] Allergies Active AllergyReactionsCriticalityNoted GnarHegwzwffOuovwnxcho53/15/2022 Medications MedicationSigDispense QuantityRefillsLast FilledStart DateEnd DateStatus lovastatin (Mevacor) 20 mg tablet Take 20 mg by mouth in the morning.04/22/2022ctive buPROPion XL (Wellbutrin XL) 150 mg 24 hr tablet 05/06/2022ctive levoFLOXacin (Levaquin) 500 mg tablet 05/06/2022ctive levothyroxine (Synthroid, Levoxyl) 100 mcg tablet Take 100 mcg by mouth in the morning.02/09/2022ctive Family History Medical HistoryRelationNameCommentsStrokeFatherRelationNameStatusCommentsFather Social History Tobacco UseTypesPacks/DayYears UsedDateSmoking Tobacco: NeverSmokeless Tobacco: Never Tobacco Cessation:Counseling Given: Not Answered Alcohol UseStandard Drinks/WeekCommentsYes0 (1 standard drink = 0.6 oz pure alcohol)moderateUT Safety & EnvironmentAnswerDate RecordedFear of Current or Ex-PartnerNot on file08/14/2023Emotionally AbusedNot on file08/14/2023hysically AbusedNot on file08/14/2023Sexually AbusedNot on file08/14/2023hysically or Sexually AbusedNot on file08/14/2023CommentsUnknownSex and Gender InformationValueDate RecordedSex Assigned at WwqaxSklyku29/08/2025 12:34 PM EDT Legal SazZdsoou81/08/2022 9:47 AM ESTGender GfsamhsoWbjnlo95/08/2025 12:34 PM EDTSexual OrientationDon't know01/28/2025 12:34 PM EDT Last Filed Vital Signs Vital SignReadingTime TakenCommentsBlood Dvkognid110/9705/07/2022 10:10 AM EST Fkhyu2851/15/2022 10:10 AM ESTTemperature--Respiratory Rate--Oxygen Saturation 95%05/07/2022 10:10 AM ESTInhaled Oxygen Concentration--Eqwkud92.2 kg (146 lb) 05/07/2022 10:10 AM PRUGjrceg903.6 cm (5' 6 )05/07/2022 10:10 AM ESTBody Mass Index23.5705/07/2022 10:10 AM EST Plan of Treatment Health MaintenanceDue DateLast DoneCommentsCT Donebairizqe63/10/1960Colonoscopy 1959Colorectal Cancer Rmztmqnzg13/10/1960FIT-DNA1959FIT1959 FOBT1959Medicare Annual Wellness (AWV)1959Medicare Initial Physical (IPPE)1959 4562Kxilpinpnmzjt68/10/1960Depression Rxtrbjajv70/10/1972Pap Smear 1980Adult Doapqwp6308/02/1981Cervical Cancer Ezutnjwsi50/10/1990HPV/Cotest 08/02/19894008Tsjpolhbt54/10/2000Pneumococcal Vaccine: 50+ Years (1 of 1 - PCV) 2009Zoster Vaccines (1 of 2)2009Fall Risk Agzbbnsmq94/10/2025COVID- 19 Vaccine (1 - 2024- season)2025Influenza Vaccine (#1)2025HIB VaccinesAged OutNo longer eligible based on patient's age to complete this topic HPV VaccinesAged OutNo longer eligible based on patient's age to complete this topicIPV VaccinesAged OutNo longer eligible based on patient's age to complete this topicMeningococcal B VaccineAged OutNo longer eligible based on patient's age to complete this topicMeningococcal VaccineAged OutNo longer eligible based on patient's age to complete this topicRotavirus VaccinesAged OutNo longer eligible based on patient's age to complete this topic Insurance MemberSubscriberPlan / Payer (Effective 2024-Present)Name:Bianca Toledo Member ID:[id number] Relation to Subscriber:SelfName:Bianca Toledo Subscriber ID:[id number] Payer ID:[id number] Group ID:Not on file Type:Medicare Address: [facility] [id number] Care Teams Team MemberRelationshipSpecialtyStart DateEnd Mateusz Madera MD [address] [facility] [place] [address] PCP - Hjpjtot06/13/22
--- OUTSIDE RECORDS SUMMARY | 2025-05-11 13:03 | XMS_ITS | Patient Health Record ---
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 Name Role Phone Zaheer Madera Primary Care Provider Allergies No Known Allergies Results Component Value Reference Range Notes GLYCOHEMOGLOBIN A1C Reviewed date:09/15/2024 01:50:46 PM Interpretation: Performing Lab: Notes/Report: [facility] , Glycohemoglobin A1C 5.4 4.5-6.2 % ACTION SUGGESTED ADA THERAPEUTIC TARGET < 7.0 > 7.0 ADA RECOMMENDED LIMIT 4.0 - 6.0 Estimated Average Glucose 108 Performing Lab:see noteML - [facility] LBIRON Reviewed date:09/15/2024 01:50:46 PM Interpretation: Performing Lab: Notes/Report: [facility] ,Iron94.050.0-170.0 ug/dLPerforming Lab:see noteML - [facility] LB LACTATE or LACTIC ACID Reviewed date:10/13/2024 10:17:32 AM Interpretation: Performing Lab: Notes/Report: [facility] ,Lactate/Lactic Acid1.10.4-2.0 mmol/LPerforming Lab:see noteML - [facility] LBCBC AUTO DIFF Reviewed date:12/25/2024 07:56:44 PM Interpretation: Performing Lab: Notes/Report: [facility] ,White Blood Count10.94.0-11.0 10 3/uLRed Blood Count4.694.20-5.40 10 6/uL Jamievcsav82.912.0-16.0 g/hDNjqxsqaymf32.936.0-48.0 %Mean Corpuscular Yytfmi54.6 81.0-99.0 fLMean Corpuscular Xhigifswuy58.826.7-34.0 pgMean Corpuscular HGB Conc 33.929.9-35.2 g/dLRed Cell Distribution Width11.911.0-15.0 %Platelet Qsmgg758 150-450 10 3/uLMean Platelet Volume9.99.5-13.5 fLNeutrophils Percent Auto64.3 43.0-75.0 %Lymphocytes Percent Auto24.620.5-60.0 %Monocytes Percent Auto8.51.7- 12.0 %Eosinophils Percent Auto1.70.9-7.0 %Basophils Percent Auto0.60.2-2.0 % Immature Granulocytes Pct Auto0.30.0-0.5 %Neutrophils Absolute Auto7.01.4-6.5 10 3/uLLymphocytes Absolute Auto2.71.2-3.8 10 3/uLMonocytes Absolute Auto0.90.3-0.8 10 3/uLEosinophils Absolute Auto0.20.0-0.7 10 3/uLBasophils Absolute Auto0.10.0- 0.1 10 3/uLImmature Granulocytes Abs Auto0.030.00-0.03 10 3/uLPerforming Lab:see noteML - [facility] LBLACTATE or LACTIC ACID Reviewed date:12/25/2024 07:56:44 PM Interpretation: Performing Lab: Notes/Report: [facility] ,Lactate/Lactic Acid1.10.4-2.0 mmol/LPerforming Lab:see noteML - [facility] LBPROF 14(COMP METB) Reviewed date:12/25/2024 07:56:44 PM Interpretation: Performing Lab: Notes/Report: [facility] ,Yjgfko401058-862 mmol/LPotassium3.43.5-5.1 mmol/SUoonryzx67919-197 mmol/LCarbon Zvhgzsl65.021.0-32.0 mmol/LAnion Gap11.1Jpftpfd4380-944 mg/dLBlood Urea Nitrogen 15.07.0-18.0 mg/dLCreatinine0.670.55-1.02 mg/dLEstimated GFR ( Elenita>60 >=60 mL/min/1.73m 2Estimated GFR (Non- Simin>60>=60 mL/min/1.73m 2BUN Creatinine Ratio22.6Ossmpjp3.58.5-10.1 mg/dLBilirubin Total0.40.2-1.0 mg/dL Aspartate Amino Wvdvryljxjt8314-67 U/LAlanine Yjxnqiixncaitsqs1961-30 U/L Alkaline Ywsgnkuwema6694-802 U/LTotal Protein7.16.4-8.2 g/dLAlbumin Level3.53.4- 5.0 g/dLGlobulin3.6Albumin Globulin Ratio1.0Performing Lab:see noteML - [facility] LBTroponin I High Sensitivity Reviewed date:12/25/2024 07:56:44 PM Interpretation: Performing Lab: Notes/Report: [facility] ,Troponin I High Sensitivity5.54.0-51.3 pg/mL DIAGNOSIS. CUT-OFF POINTS HAVE BEEN ESTABLISHED BASED ON THE FOURTH NOTE: HIGH-SENSITIVITY TROPONIN ASSAY IS NOT INTENDED TO BE REFERENCE LIMIT (URL) OF TROPONIN, DEFINED THE 99TH WITH OTHER DIAGNOSTIC AND CLINICAL INFORMATION. PERCENTILE OF cTnI DISTRIBUTION IN A REFERENCE POPULATION, 99TH PERCENTILE = 51.4 PG/ML UNIVERSAL DEFINITION OF MYOCARDIAL INFARCTION. THE UPPER HAS BEEN CONFIRMED THE DECISION THRESHOLD FOR DE USED IN ISOLATION BUT SHOULD BE INTERPRETED IN CONJUNCTION Performing Lab:see noteML - [facility] LBUA Micro, reflex to culture Reviewed date:12/25/2024 07:56:44 PM Interpretation: Performing Lab: Notes/Report: [facility] ,Color UrineLT. YELLOWYELLOWClarity UrineCLEARCLEARSpecific [place] Urine1.015 1.005-1.025pH Urine6.05.0-9.0Protein UrineNEGATIVENEG/TRACE mg/dLGlucose Urine UANEGATIVENEGATIVE mg/dLBilirubin UrineNEGATIVENEGATIVEKetones Xzodq06XPYUROHK mg/dLBlood UrineNEGATIVENEGATIVENitrite UrineNEGATIVENEGATIVEUrobilinogen Urine 0.20.2-1.0 EU/dLLeukocyte Esterase UrineSMALLNEGATIVEWBC Urine5-10NONE SEEN #/HPFRBC Urine0-20-2 #/HPFBacteria UrineTRACENONE SEEN #/HPFMucus UrineNONE SEEN NONE SEENSquamous Epithelial Cell UrineRARENONE/RARE #/LPFCrystals Seen?None SeenNone Seen #/HPFCast Seen?NONE SEENNONE SEEN #/LPFUrine Culture Indicated YES-FRMCPerforming Lab:see noteML - [facility] LBUrine Culture - [facility] Reviewed date:12/27/2024 12:46:51 PM Interpretation: Performing Lab: Notes/Report: [facility] ,Urine Culture - FRMCSee Below For Report Organism Comments Urine Culture - FR Testing performed at [facility] Isolated O:STRAGA Urine Culture - [facility] Urine Culture - [id number] [place] [address] Organism Comments Urine Culture - FR Testing performed at [facility] Isolated O:STRAGA Urine Culture - FR Urine Culture - FRMCSee Below For Report Organism Comments Urine Culture - [facility] Testing performed at [facility] Isolated O:STRAGA Urine Culture - FR Urine Culture - FRMCSee Below For Report Organism Comments Urine Culture - [facility] Testing performed at [facility] Isolated O:STRAGA Urine Culture - [facility] Urine Culture - [facility]15,000 CFU/ML- Pure Growth Organism Comments Urine Culture - FR Testing performed at [facility] Isolated O:STRAGA Urine Culture - [facility] Performing Lab:see noteML - [facility] LBECG 12 lead Reviewed date:12/27/2024 08:27:29 AM Interpretation: Performing Lab: Notes/Report: Source Facility: [facility] [address] [place] [address] Electrocardiograph Report Signed Patient: ROBYN DUNLAP MR#: [id number] : 1960 Acct:[id number] Age/Sex: 64 / F ADM Date: 12/25/24 Loc: ER Attending Dr: Ordering Physician: Isma Hopkins Date of Service: 12/25/24 Procedure(s): ECG 12 lead Accession Number(s): [id number] cc: [facility] Test Date: 2024-12-25 Pat Name: ROBYN DUNLAP Department: Room: - 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 Measurements Intervals [place] Rate: 68 P: 66 [place]: 176 QRS: -39 QRSD: 92 T: 33 QT: 412 QTc: 429 Interpretive Statements 1100 Sinus rhythm 5220 Possible left ventricular hypertrophy 6220 Possible left atrial enlargement 7200 Abnormal left axis deviation 8003 Consistent with pulmonary disease 8102 Low QRS voltage in chest leads 9150 abnormal ECG Compared to ECG 05/05/2022 20:46:37 Low QRS voltage now present Electronically Signed On 12-26-2024 17:22:24 EDT by NARENDRA DICK M.D. Dictated By: NARENDRA DICK Signed By: 12/26/24 17212/26/24 172 DD/ 0241 TD/TT: Glycerin Supervisor:TSH Reviewed date:09/15/2024 01:50:46 PM Interpretation: Performing Lab: Notes/Report: [facility] ,Thyroid Stimulating Hormone0.3490.358-3.740 uIU/mLPerforming Lab:see noteML - [facility] LBT4 Reviewed date:09/15/2024 01:50:46 PM Interpretation: Performing Lab: Notes/Report: [facility] ,T4 Thyroxine9.304.80-13.90 ug/dLPerforming Lab:see noteML - [facility] LBPROF 14(COMP METB) Reviewed date:09/15/2024 01:50:46 PM Interpretation: Performing Lab: Notes/Report: [facility] ,Aacsqz202557-717 mmol/LPotassium3.93.5-5.1 mmol/YPliskoop25107-073 mmol/LCarbon Uduiluo22.221.0-32.0 mmol/LAnion Gap6.6Fmvqmgo4491-063 mg/dLBlood Urea Nitrogen 17.07.0-18.0 mg/dLCreatinine0.760.55-1.02 mg/dLEstimated GFR ( Elenita>60 >=60 mL/min/1.73m 2Estimated GFR (Non- Simin>60>=60 mL/min/1.73m 2BUN Creatinine Ratio22.1Rknlhaf2.68.5-10.1 mg/dLBilirubin Total0.50.2-1.0 mg/dL Aspartate Amino Qsfakejtxsm2786-93 U/LAlanine Dhdiclsoegfjivab5439-90 U/L Alkaline Voeaxzgattn1162-025 U/LTotal Protein7.66.4-8.2 g/dLAlbumin Level3.93.4- 5.0 g/dLGlobulin3.7Albumin Globulin Ratio1.1Performing Lab:see note - [facility] LBLIPID PROFILE Reviewed date:09/15/2024 01:50:46 PM Interpretation: Performing Lab: Notes/Report: [facility] ,Eziwhbpypfrhz805<=150 mg/uZNjfypbmuisl980<=200 mg/dLHDL Wdxbxgkoiyq2449-42 mg/dL > or =60 mg/dl - LOW CARDIOVASCULAR RISK <40 mg/dl - HIGH CARDIOVASCULAR RISK LDL Cholesterol Bctzyedpos522.0 160-189 mg/dl HIGH 100-129 mg/dl NEAR OR ABOVE OPTIMAL <100 mg/dl OPTIMAL 130-159 mg/dl BORDERLINE HIGH >190 mg/dl VERY HIGH VLDL YBRMBUXXYKL53.2Chol HDL Ratio2.8 >11.0 HIGH RISK 4.4 - 7.1 AVERAGE RISK 3.3 - 4.4 LOW RISK 7.1 - 11.0 MODERATE RISK Performing Lab:see note - [facility] LBFREE T3 Reviewed date:09/15/2024 01:50:46 PM Interpretation: Performing Lab: Notes/Report: [facility] ,Free T32.922.18-3.98 pg/mLPerforming Lab:see note - [facility] LB CBC AUTO DIFF Reviewed date:09/15/2024 01:50:46 PM Interpretation: Performing Lab: Notes/Report: [facility] ,White Blood Count7.84.0-11.0 10 3/uLRed Blood Count4.924.20-5.40 10 6/uL Ikfhsfrzhf09.612.0-16.0 g/lEShceltmtzr60.636.0-48.0 %Mean Corpuscular Amcwgc48.7 81.0-99.0 fLMean Corpuscular Pirjdefyhe01.726.7-34.0 pgMean Corpuscular HGB Conc 34.229.9-35.2 g/dLRed Cell Distribution Width11.911.0-15.0 %Platelet Hbqaa819 150-450 10 3/uLMean Platelet Volume9.89.5-13.5 fLNeutrophils Percent Auto53.2 43.0-75.0 %Lymphocytes Percent Auto35.320.5-60.0 %Monocytes Percent Auto7.11.7- 12.0 %Eosinophils Percent Auto3.20.9-7.0 %Basophils Percent Auto0.90.2-2.0 % Immature Granulocytes Pct Auto0.30.0-0.5 %Neutrophils Absolute Auto4.21.4-6.5 10 3/uLLymphocytes Absolute Auto2.81.2-3.8 10 3/uLMonocytes Absolute Auto0.60.3-0.8 10 3/uLEosinophils Absolute Auto0.30.0-0.7 10 3/uLBasophils Absolute Auto0.10.0- 0.1 10 3/uLImmature Granulocytes Abs Auto0.020.00-0.03 10 3/uLPerforming Lab:see noteML - [facility] LBUrine Culture - [facility] Reviewed date:10/18/2024 07:22:27 PM Interpretation: Performing Lab: Notes/Report: [facility] ,Urine Culture - FRMCSee Below For Report 50,000 colonies/ml mixed Urine Culture - [facility] Urine Culture - FRbacterial skin contaminants 50,000 colonies/ml mixed Urine Culture - [facility] Urine Culture - [facility]2 Days 50,000 colonies/ml mixed Urine Culture - [facility] Urine Culture - [facility] 50,000 colonies/ml mixed Urine Culture - [facility] Urine Culture - FRMCTesting performed at [facility] 50,000 colonies/ml mixed Urine Culture - [facility] Urine Culture - [id number] [place] [address] 50,000 colonies/ml mixed Urine Culture - [facility] Performing Lab:see noteML - [facility] LBUA Micro, reflex to culture Reviewed date:10/13/2024 10:17:32 AM Interpretation: Performing Lab: Notes/Report: [facility] ,Color UrineYELLOWYELLOWClarity UrineCLEARCLEARSpecific [place] Urine1.020 1.005-1.025pH Urine6.05.0-9.0Protein UrineNEGATIVENEG/TRACE mg/dLGlucose Urine UANEGATIVENEGATIVE mg/dLBilirubin UrineSMALLNEGATIVEKetones Urine>=80NEGATIVE mg/dLBlood UrineTRACE-INEGATIVENitrite UrineNEGATIVENEGATIVEUrobilinogen Urine 0.20.2-1.0 EU/dLLeukocyte Esterase UrineNEGATIVENEGATIVEWBC Urine0-2NONE SEEN #/HPFRBC UrineNONE SEEN0-2 #/HPFBacteria UrineSMALLNONE SEEN #/HPFSquamous Epithelial Cell UrineRARENONE/RARE #/LPFCrystals Seen?None SeenNone Seen #/HPF Cast Seen?NONE SEENNONE SEEN #/LPFUrine Culture IndicatedYES-FRMCPerforming Lab: see noteML - [facility] LBPROF 14(COMP METB) Reviewed date:10/13/2024 10:17:32 AM Interpretation: Performing Lab: Notes/Report: [facility] ,Cocqgu555836-589 mmol/LPotassium3.53.5-5.1 mmol/MKzvjjfdy02341-187 mmol/LCarbon Bdonhui52.421.0-32.0 mmol/LAnion Gap14.3Gqvjvbw0152-443 mg/dLBlood Urea Nitrogen 16.07.0-18.0 mg/dLCreatinine0.930.55-1.02 mg/dLEstimated GFR ( Elenita>60 >=60 mL/min/1.73m 2Estimated GFR (Non- Simin>60>=60 mL/min/1.73m 2BUN Creatinine Ratio17.1Rizwhen5.38.5-10.1 mg/dLBilirubin Total0.50.2-1.0 mg/dL Aspartate Amino Efyvgumhlkh0296-77 U/LAlanine Qsnyqhilhjaeiluj0643-60 U/L Alkaline Tgwdgrkcglm2304-213 U/LTotal Protein7.96.4-8.2 g/dLAlbumin Level3.73.4- 5.0 g/dLGlobulin4.2Albumin Globulin Ratio0.9Performing Lab:see noteML - [facility] LBMAGNESIUM Reviewed date:10/13/2024 10:17:32 AM Interpretation: Performing Lab: Notes/Report: [facility] ,Magnesium1.61.8-2.4 mg/dLPerforming Lab:see noteML - [facility] LB CBC AUTO DIFF Reviewed date:10/13/2024 10:17:32 AM Interpretation: Performing Lab: Notes/Report: [facility] ,White Blood Count8.44.0-11.0 10 3/uLRed Blood Count5.244.20-5.40 10 6/uL Yosffivths72.712.0-16.0 g/sZFrbgmsowjq76.536.0-48.0 %Mean Corpuscular Rghsyw89.5 81.0-99.0 fLMean Corpuscular Rmyqxiulyz48.926.7-34.0 pgMean Corpuscular HGB Conc 33.729.9-35.2 g/dLRed Cell Distribution Width12.011.0-15.0 %Platelet Iperi042 150-450 10 3/uLMean Platelet Grfprn78.19.5-13.5 fLNeutrophils Percent Auto69.6 43.0-75.0 %Lymphocytes Percent Auto17.720.5-60.0 %Monocytes Percent Auto10.21.7- 12.0 %Eosinophils Percent Auto2.00.9-7.0 %Basophils Percent Auto0.10.2-2.0 % Immature Granulocytes Pct Auto0.40.0-0.5 %Neutrophils Absolute Auto5.81.4-6.5 10 3/uLLymphocytes Absolute Auto1.51.2-3.8 10 3/uLMonocytes Absolute Auto0.90.3-0.8 10 3/uLEosinophils Absolute Auto0.20.0-0.7 10 3/uLBasophils Absolute Auto0.00.0- 0.1 10 3/uLImmature Granulocytes Abs Auto0.030.00-0.03 10 3/uLPerforming Lab:see noteML - [facility] LB Reason For Referral Reason Needs breast biopsy Diagnosis 1 Abnormal mammogram ( R92.8) Referral Organization [facility] Referring Provider First Name Zaheer Referring Provider Last Name Cassy Referring Provider Speciality Family Med mandi Referred Provider Deni Phillips Referred Provider Specialty General Surg rita Referral Priority Routine Medications Medication SIG (Take, Route, Frequency, Duration) Notes Start Date End Date Status Zegerid 20-1100 MG 1 capsule on an empt y stomach Orally Once a day; Duration: 90 days 5ActivelevoFLOXacin 500 MG1 tablet Orally Once a day; Duration: 10 day(s)5ActiveOndansetron 4 MG1 tablet on the tongue and allow to dissolve Orally qid5ActiveLevothyroxine Sodium 100 MCGTAKE 1 TABLET BY MOUTH EVERY DAY; Duration: 90 daysActiveMetoprolol Tartrate 25 MG1 tablet with food Orally Twice a day; Duration: 30 days5ActiveALPRAZolam 0.25 MG1 tablet Orally tid; Duration: 14 days5ActiveLovastatin 20 MGTAKE 1 TABLET BY MOUTH EVERY DAY; Duration: 90 daysActive Social History Tobacco Use: Social History Observation Description Date Details (start date - stop date) Never Smoker NA - NA Tobacco Use/Smoking Question Answer Notes Patient is a nonsmoker Alcohol Screen (Audit-C) Question Answer Notes Did you have a drink containing alcohol in the p ast year? Yes How often did you have 6 or more drinks on one occasion in the past year?Never (0 point)How many drinks did you have on a typical day when you were drinking in the past year?3 or 4 drinks (1 point)How often did you have a drink containing alcohol in the past year?Weekly (3 points)Tjtusx9DrbjxahpmfbutoFvdrepkdLTOFS-E (Standard) Question Answer Notes Did you have a drink containing alcohol in the p ast year? No Czrbdz1XaicnoxitkuvxxSagkjeam Problems Problem Type SNOMED Code ICD Code Onset Dates Problem Status W/U Status Risk Notes Problem Hypertension (46422229) Hypertension (I10 ) ActiveconfirmedProblemAnxiety (09322392)Anxiety (F41.9)ActiveconfirmedProblem Hypothyroid (40552230)Hypothyroid (E03.9)ActiveconfirmedProblemGastroesophageal reflux disease (319914142)GERD without esophagitis (K21.9)ActiveconfirmedProblem Breast cancer (706133286)Breast cancer (C50.919)ActiveconfirmedProblemWell adult (242204854)Well adult (Z00.00)ActiveconfirmedProblemhypercholesterolemia (disorder) (42192700)Hypercholesteremia (E78.00)Activeconfirmed Vital Signs Blood pressure diastolic 102 mm Hg 12/28/2024 Hpkyhf28 in12/28/2024lood pressure mm Hg12/28/20240269Luxjwi111.4 lbs 12/28/2024BMI23.3 kg/m212/28/2024 Encounters Encounter Location Date Provider Diagnosis [facility] [address] [place] [address] 09/15/2024 Zaheer Hoy Hypothyroid E03.9 ; Hypercholesteremia E78.00 and GERD without esophagitis K21.9 [facility] [address] [place] [address] 12/01/2024 Zaheer Hoy Anxiety F41.9 [facility] [address] [place] [address] 12/20/2024 Zaheer Hoy Hypertension I10 [facility] [address] [place] [address] 12/28/2024 Zaheer Hoy Hypothyroid E03.9 ; Anxiety F41.9 and Hypertension I10 [facility] [address] [place] [address] 09/15/2024 Zaheer Hoy [facility] [place] [address] 10/12/2024[facility] [place] [address]/Doug [facility] [place] [address]/Doug HoyAbnormal mammogram of right breast R92.8[facility] [place] [address] 11/26/2024[facility] [place] [address]/11/2024[facility] [place] [address]/03/2025Doug HoyAbnormal mammogram R92.8BP[facility] [place] [address]/05/2025 [facility] [place] [address]/08/2024Doug HoyHypertension H80HhcndajWray [facility] [place] [address]/12/2024[facility] [place] [place] [address]/Doug HoyBV[facility] [place] [facility] [place] [address]/ Zaheer HoyHypertension I10[facility] [facility] [place] [address]/Doug Hoy Assessments Encounter Date Diagnosis (ICD Code) Assessment Notes Treatment Notes Treatment Clinical Notes Section Notes 09/15/2024 Hypothyroid (ICD-10 - E03.9) 09/15/2024Hypercholesteremia (ICD-10 - E78.00)12/01/2024nxiety (ICD-10 - F41.9) 12/20/2024Hypertension (ICD-10 - I10)12/28/2024Hypothyroid (ICD-10 - E03.9) 12/28/2024nxiety (ICD-10 - F41.9)11/18/2024bnormal mammogram of right breast (ICD-10 - R92.8)11/30/2024bnormal mammogram (ICD-10 - R92.8)12/23/2024 Hypertension (ICD-10 - I10)01/03/2025Hypertension (ICD-10 - I10)12/28/2024 Hypertension (ICD-10 - I10)statrtin BP meds - and add cympbalta if not better 09/15/2024GERD without esophagitis (ICD-10 - K21.9) Plan Of Treatment Pending Test Test Name Order Date CMP (COMPLETE METABOLIC PANEL) 4 HEMOGLOBIN A1C (GLYCO) 08/21/2023 HEMOGLOBIN A1C (GLYCO) 09/15/2024 IRON, TOTAL 09/15/2024 LIPID PANEL (CHOL/TRIG/HDL/LDL) 09/16/19 25 LIPID PANEL (CHOL/TRIG/HDL/LDL) 08/21/19 24 CBC WITH DIFF 08/21/2023 MAMM Mammograms CAD 08/21/2023 STOOL OCCULT BLOOD 08/21/2023 STOOL OCCULT BLOOD 09/15/2024 MAMM DIAG UNILAT RT MAUREEN 3D GLOBAL 11/18 THYROID PANEL (T4/TSH/FREE T3) 5 THYROID PANEL (T4/TSH/FREE T3) 4 MM screening mammo BI 09/15/2024 US BREAST COMPLETE RIGHT 11/18/2024 CMP (COMP MET LAMB) w/eGFR CKD-EPI 2024 CBC WITH DIFF 09/15/2024 Insurance Providers Payer Name Payer Address Payer Phone Subscriber Number Group Number Insured Name Patient Relationship to Insured Coverage Start Date Coverage End Date [place] [address] [place] [place] [address] [id number] [place] - patient is the insuredCONTINENTVA LIFEBRENTWOO [address] [place], [place] [id number], KathleenSelf - patient is the insured Medical (General) History Medical History History ICD Code Anxiety F41.9 Degenerative cervical disc M50.30 BP (high blood pressure) I10 Hyperlipemia E78.5 Insomnia G47.00 Other supraventricular tachycardia I47.1 9 Scoliosis M41.9 Cervical spondylosis M47.812 Breast cancer C50.919 Surgical History Surgery Date(Month/Year) Breast biopsy Hysterectomy- FullC-section z0Gikzt ablasionright breast ifnyaectiz83/29/2025
--- OUTSIDE RECORDS SUMMARY | 2025-05-11 13:05 | XMS_ITS | CCD ---
Author Organization [facility] Care Team Providers Care Optical Fabricator Name Role Phone LORRI WILLAMS Attending Unavailable BLAYNE SMITH Admitting Unavailable OXANA, DR MITCHELL Primary Care Unavailable JUAN HORAN Consulting Unavailable BLAYNE SMITH Attending Unavailable BLAYNE SMITH Consulting Unavailable ANGEL FITCH Consulting Unavailable OXANA, DR MITCHELL Attending Unavailable OXANA, DR MITCHELL Consulting Unavailable OXANA, DR MITCHELL Primary Care Unavailable OXANA, DR MITCHELL Admitting Unavailable OXANA, DR MITCHELL Primary Care Unavailable AMALIA HOPKINS Attending Unavailable AMALIA HOPKINS Admitting Unavailable GINO, DR ANGEL Eagle Consulting Unavailable GUS RUFFIN Consulting Unavailable Amalia Hopkins MD Attending Provider Stephen Daigle MD Primary Care Provider Alicja Phillips DO Attending Provider [phone] Stephen Daigle MD Primary Care Provider Stephen Daigle MD Attending Provider Amalia Hopkins MD Attending Provider Rosemary Regalado MD Attending Provider Alicja Phillips DO Referring Provider Rosemary Inman MD Attending Provid er Love Castro MD Attending Provider Rosemary Regalado MD Referring Provider Rosemary Inman MD Attending Provid er Alicja Phillips DO Attending Provider Stephen Daigle MD Primary Care Provider [phone] Love Castro MD Other Provider [phone] Christoph Prakash DO Attending Provider Stephen Daigle Primary Care Unavailable Itzkowitz, Alicja Admitting Unavailable Itzkowitz, Alicja Attending Unavailable Itzkowitz, Alicja Admitting Unavailable Itzkowitz, Alicja Attending Unavailable Stephen Daigle Attending Unavailable Stephen Daigle Primary Care Unavailable Stephen Daigle Admitting Unavailable Love Castro Attending Unavailable Love Castro Admitting Unavailable NO FAMILY, PHYSICIAN Primary Care Unavailable Itzkowitz, Alicja Referring Unavailable Stephen Daigle Primary Care Unavailable Itzkowitz, Alicja Admitting Unavailable Itzkowitz, Alicja Attending Unavailable Amalia Hopkins T Attending Unavailable Sandeep, Amalia T Admitting Unavailable Amalia Hopkins Attending Unavailable Sandeep, Amalia T Admitting Unavailable Stephen Daigle Primary Care Unavailable Itzkowitz, Alicja Attending Unavailable Itgregoriotz, Alicja Admitting Unavailable Christoph Prakash Admitting Unavailable Christoph Prakash Attending Unavailable Stephen Daigle MD Primary Care Provider [phone] SCARLETTZROHIT, ALICJA H Attending Unavailable CHRISTOPH PRAKASH Attending Unavailable CHRISTOPH PRAKASH Attending Unavailable CHRISTOPH PRAKASH Attending Unavailable TIMOTHY BO Referring Unava ilable ITZKOWITZ, ALICJA H Attending Unavailable ITZKOWITZ, ALICJA H Attending Unavailable ITZKOSANAZTZ, ALICJA H Attending Unavailable ITZPEPITOTZ, ALICJA H Attending Unavailable STEPHEN DAIGLE Referring Unavailable STEPHEN DAIGLE Referring Unavailable Allergies Allergy ClassificationReported Allergen(s)Allergy TypeDate of OnsetReaction(s) Facility (20 sources)Metoprolol; Translations: [METOPROLOL]Drug Oztwcdp90-75-1901 [facility] Repository (14 sources)EscitalopramDrug Gockgow53-90-5707XzutggmjvXAEW Healthcare Work Phone: (1 source)EscitalopramDrug Xxmslqw46-40-3754SyothjbapOhiohealth Shelby Hospital Repository Medications Current Medications MedicationDrug Class(es)DatesSig (Normalized)Sig (Original)ALPRAZolam 0.25 mg oral tablet (20 sources)BenzodiazepineStart: 94-06-7731ngsb 1 tablet by mouth in the morning, then take 1 tablet by mouth in the evening, then take 1 tablet by mouth at bedtimeALPRAZolam (Xanax) 0.25 MG tablet Take 0.25 mg by mouth in the morning and 0.25 mg in the evening and 0.25 mg before bedtime. 12/01/2024 Active letrozole 2.5 mg oral tablet (5 sources)Aromatase InhibitorStart: 84-66-8416lfaa 1 tablet by mouth once daily letrozole (Femara) 2.5 MG chemo tablet Take 2.5 mg by mouth Daily. 02/17/2025 Activelevothyroxine sodium 0.1 mg oral tablet (20 sources)l-ThyroxineStart: 47-79-7695pxsi 1 tablet by mouth once daily levothyroxine (Synthroid, Levoxyl) 100 MCG tablet Take 100 mcg by mouth Daily 09/15/2024 Activelovastatin 20 mg oral tablet (20 sources)HMG-CoA Reductase InhibitorStart: 39-74-5227nbnkybfyld (Mevacor) 20 MG tablet 12/14/2024 Activemetoprolol tartrate 25 mg oral tablet (15 sources)beta-Adrenergic BlockerStart: 11-71-3807ucxmvolhto tartrate (Lopressor) 25 MG tablet Twice daily 12/20/2024 Activemometasone furoate 1 mg/ml topical cream (2 sources)CorticosteroidStart: 53-52-2481hhrvzvufwo 20 mg delayed release oral capsule (13 sources)Proton Pump InhibitorStart: 77-70-3460kcazptaabq (PriLOSEC) [address] capsule Daily 02/17/2025 Active Completed/Discontinued Medications MedicationDrug Class(es)DatesSig (Normalized)Sig (Original)traMADol hydrochloride 50 mg oral tablet (4 sources)Opioid AgonistStart: 01-18-2025 End: 01-42-6323trui 1 tablet by mouth every six hours as needed for painTramadol 50 mg tablet Discontinued 50 MG PO Every 6 hours as needed for pain 09 11January 18, 2025 12:00am February 17, 2025 10:03am Problems Active Problems Problem ClassificationProblemDateDocumented DateEpisodic/ChronicCancer of breast (20 sources)Malignant tumor of breast ; Translations: [Malignant neoplasm of unspecified site of right female breast]Onset: hronic Cardiac dysrhythmias (3 sources)Supraventricular tachycardia; Translations: [Supraventricular tachycardia]Onset: 76-73-7691WmynixmWhqiurw dysrhythmias (4 sources)Palpitations; Translations: [PALPITATIONS]Onset: 76-03-9757Drrxicxc Conditions associated with dizziness or vertigo (5 sources)Dizziness and giddiness; Translations: [DIZZINESS AND GIDDINESS] Onset: 33-01-6640OsgvqwzzJ Codes: Adverse effects of medical drugs (1 source)Adverse effect of beta-adrenoreceptor antagonists, initial encounter; Translations: [ADVRS EFF B-ADRENOCPT ANTAG INITIAL]Onset: 68-57-5168Fgnqgalw Malaise and fatigue (1 source)Other fatigue; Translations: [OTHER FATIGUE]Onset: 67-41-1560Wbmfqzsb Other aftercare (1 source)Other residential (current) drug therapy; Translations: [OTH DIRECTOR HRIS CURRENT DRUG THERAPY]Onset: 32-74-3794MxescaveHgmbdphjwbbi (4 sources)If you do not want to use the tramadol you can use alternating doses of ibuprofen (Motrin) and extra strength Tylenol. Ibuprofen (Motrin) 600 mg followed 3 hours later by 2 extra strength Tylenol's, followed 3 hours later by ibuprofen 600 mg. You may continue this repeating schedule for pain management. Unclassified (3 sources)C50.911 - Malignant neoplasm of unspecified site of right female breastUnclassified (2 sources)E04.1 - Nontoxic single thyroid nodule Past or Other Problems Problem ClassificationProblemDateDocumented DateEpisodic/ChronicAnxiety disorders (10 sources)Anxiety; Translations: [Anxiety disorder, unspecified]Onset: 08-19-2007 Resolved: 391216-08-1558LiofddlXegccxlci of lipid metabolism (10 sources)Hypercholesterolemia; Translations: [Pure hypercholesterolemia, unspecified]Onset: 03-16-2025 Resolved: 535580-41-8617TxjyfhpQmneuxrlqv disorders (10 sources)Gastroesophageal reflux disease; Translations: [Gastro-esophageal reflux disease without esophagitis]Onset: 03-16-2025 Resolved: 531546-90-9346OxxqiapZgbicedee hypertension (10 sources)Hypertensive disorder; Translations: [Essential (primary) hypertension]Onset: 03-16-2025 Resolved: 796604-19-0980MdtsymdGzjvnblzrqvc breast conditions (20 sources)Lump in right breast; Translations: [Unspecified lump in the right breast, unspecified quadrant]Onset: 12-08-2024 Resolved: 316484-17-2658DsjosutnSdbmf screening for suspected conditions (not mental disorders or infectious disease) (16 sources)Patient encounter status; Translations: [Encounter for screening for osteoporosis]Onset: 03-16-2025 Resolved: 004144-11-3960FnaymwxeRwnbcqt disorders (20 sources)Goiter; Translations: [Iodine-deficiency related diffuse (endemic) goiter]Onset: 03-16-2025 Resolved: hronic Results Test NameValueInterpretationReference RangeFacildamarisLotho 03-22-2025L Specimen: [id number] Received: 03/22/25 Status: GIOVANNY Garza Num: [id number] Spec Type: Cytology Subm Dr: Christoph Prakash DO Tissues: A FNA SLIDES NOPATH (LEFT THYROID NODULE) Procedures: HE/2, Gross/Micro L4, Cyto Int and Re, DIFF QWIK/6, PAPSTN/7 Age/ Patient Sex Location Account Attending Physician Bianca Toledo 64/F [place] [id number] Christoph Prakash DO SPEC NUM: [id number] RECD: 03/22/25 STATUS: GIOVANNY SALDIVARRick NUM: [id number] HAMMAD: 03/22/25- SUBM DR: Christoph Prakash DO ENTERED: 03/22/25-[address] [facility] [address]: FRANCINE TYPE: Cytology DEPT: CNG ORDERED: HE/2, Gross/Micro L4, Cyto Int and Re, DIFF QWIK/6, PAPSTN/7 ORDERED: HE/2, Gross/Micro L4, Cyto Int and Re, DIFF QWIK/6, PAPSTN/7 Pathological Diagnosis Thyroid, left thyroid nodule, FNA: - Specimen is satisfactory for evaluation. - Benign ([place] category II). Clinical Information Left Thyroid Nodule. Gross Description Received is 30 ml light pink slightly cloudy fixed fluid for cytology said to have been obtained as Left Thyroid Nodule. ThinPrep and cell block preparations are prepared for microscopic examination. Also received are 12 fixed total smeared slides and a Thyroseq vial stored at - 20 for microscopic examination. (/ok) CPT Codes 72915, 72617 Specimen: [id number] Received: 03/22/25 Status: GIOVANNY Garza Num: [id number] Spec Type: Cytology Subm Dr: Christoph Prakash DO Tissues: A FNA SLIDES NOPATH (LEFT THYROID NODULE) Procedures: HE/2, Gross/Micro L4, Cyto Int and Re, DIFF QWIK/6, PAPSTN/7 Patient: Bianca Toldeo [id number] (Continued) Signed (signature on file) Marilou Yo MD 03/23/25 0908 NormalThe Formerly Pardee Unc Health Care Physician GroupAlanine aminotransferase [Enzymatic activity/volume] in Serum or PlasmaOrdered By: Rosemary Regalado on 04-04-9740EKJ [Catalytic activity/Vol]11 U/LNormal7-52Ohiohealth Shelby HospitalComment on above:Performed By: #### CUU #### [facility] [address] [place] [address] USAAlbumin [Mass/volume] in Serum or Plasma by Bromocresol green (BCG) dye binding methoOrdered By: Rosemary Regalado on 85-62-0545Qyazghq BCG dye [Mass/Vol]4.4 g/dL3.5-5.7FSt. Francis HospitalAlkaline phosphatase [Enzymatic activity/volume] in Serum or PlasmaOrdered By: Rosemary Olvera on 02-76-3064THC [Catalytic activity/Vol]64 U/HRzftye72-612YslhyjswmOhiohealth Shelby HospitalComment on above:Performed By: #### CUU #### [facility] [address] [place] [address] USAAspartate aminotransferase [Enzymatic activity/volume] in Serum or PlasmaOrdered By: Rosemary Regalado on 12-96-9342YBG [Catalytic activity/Vol]14 U/ELfiuvf80-61VqtpaoztmOhiohealth Shelby HospitalComment on above: Performed By: #### CUU #### [facility] [address] [place] [address] USABilirubin.total [Mass/volume] in Serum or PlasmaOrdered By: Rosemary Regalado on 11-32-6649Soqarvmbp [Mass/Vol]0.6 mg/dLNormal0.3-1.0 [facility] HospitalComment on above:Performed By: #### CUU #### [facility] [address] [place] [address] USACalcium [Mass/volume] in Serum or PlasmaOrdered By: Rosemary Regalado on 98-35-4789Lcklemx [Mass/Vol]9.8 mg/dLNormal8.6-10.3FSt. Francis HospitalComment on above:Performed By: #### CUU #### [place] [address] USACarbon dioxide, total [Moles/volume] in Serum or Plasma Ordered By: krystal Fabricio on 67-62-2405CL0 [Moles/Vol]29.4 mmol/LNormal 21.0-31.0Ohiohealth Shelby HospitalComment on above:Performed By: #### CUU #### [place] [address] USAChloride [Moles/volume] in Serum or PlasmaOrdered By: krystal Fabricio on 98-16-5989Qeqeeptz [Moles/Vol]104 mmol/XVhezzz51-369MvlaneynaOhiohealth Shelby HospitalComment on above:Performed By: #### CUU #### [place] [address] USAComprehensive Metabolic Panelon 91-25-0383Eogdbez [Mass/Vol]4.4 g/dLNormal3.5-5.7The Formerly [facility] Health Care Physician GroupComment on above: Performed By: #### CUU #### [place] [address] USACreatinine Clr Calc Nkbspxxm27.63NormalThSaint Alphonsus Eagle Physician GroupComment on above:Result Comment: PERFORMED BY: [place] [address] PATHOLOGIST STATE INSPECTOR SHAY VILLA M.D.Performed By: #### CUU #### [place] [address] USAGFR/1.73 sq M.predicted MDRD (S/P/Bld) [Vol rate/Area] mL/min/{1.73_m2}NormalThe Formerly [facility] Health Care Physician GroupComment on above:Performed By: #### CUU #### [place] [address] USACreatinine [Mass/volume] in Serum or PlasmaOrdered By: Rosemary Regalado on 78-44-7526Eisstvywsc [Mass/Vol]0.73 mg/dLNormal0.60-1.20Ohio[facility] Shelby HospitalComment on above:Performed By: #### CUU #### [facility] [address] [place] [address] USAGlomerular filtration rate [Volume Rate/Area] in Serum, Plasma or Blood by CreatinineOrdered By: Rosemary Regalado on 10-51-3629Mqlxknbnvx filtration rate [Volume Rate/Area] in Serum, Plasma or Blood by Creatinine> 60.0 mL/MinOhiohealth Shelby HospitalGlucose [Mass/volume] in Serum or Plasma Ordered By: Rosemary Regalado on 23-65-7727Hpuieou [Mass/Vol]92 mg/vVHgnzlm60-202 [facility] HospitalComment on above:ADA recommended reference rangeRandom Glucose Reference Range is dependent on time and content of last meal. Glucose of more than 200 mg/dL in a nonstressed, ambulatory subject supports the diagnosisof Diabetes Mellitus.Result Comment: Random Glucose Reference Range is dependent on time and content of last meal. Glucose of more than 200 mg/dL in a nonstressed, ambulatory subject supports the diagnosis of Diabetes Mellitus. ADA recommended reference rangePerformed By: #### CUU #### [facility] [address] [place] [id number] USANo Panel InformationOrdered By: Rosemary Regalado on 25-75-5455Hmsmdups Creatinine Clearance (Chem65.63Ohiohealth Shelby HospitalPotassium [Moles/volume] in Serum or PlasmaOrdered By: Rosemary Regalado on 01-96-1159Rxnzkenbt [Moles/Vol]4.0 mmol/LNormal3.5-5.1FSt. Francis HospitalComment on above:Performed By: #### CUU #### [facility] [address] [place] [id number] USAProtein [Mass/volume] in Serum or PlasmaOrdered By: Rosemary Regalado on 55-86-6578Hgwdfrw [Mass/Vol]7.1 g/dLNormal6.4-8.9Ohio[facility] Shelby HospitalComment on above:Performed By: #### CUU #### [facility] [address] [place] [address] USASerum globulin measurement by calculation (mass/volume) Ordered By: Rosemary Regalado on 17-57-4677Lzmwmgkq (S) [Mass/Vol]2.7 g/dLNormal [facility] HospitalComment on above:Performed By: #### CUU #### [place] [address] USASerum or plasma albumin/globulin mass ratioOrdered By: Rosemary Regalado on 06-87-7187Cxyjmdf/Globulin [Mass ratio]1.6 {ratio}NormalOhiohealth Shelby HospitalComment on above:Performed By: #### CUU #### [facility] [address] [place] [address] USASerum or plasma anion gap determinationOrdered By: Rosemary Olvera on 04-38-6020Obgsj gap [Moles/Vol]8.6 mmol/LNormal6.0-15.0Ohio[facility] Shelby HospitalComment on above:Performed By: #### CUU #### [facility] [address] [place] [address] USASodium [Moles/volume] in Serum or PlasmaOrdered By: Rosemary Regalado on 53-23-6079Pcvkmx [Moles/Vol]138 mmol/JUerlwu836-906UhsdtrchrOhiohealth Shelby HospitalComment on above:Performed By: #### CUU #### [facility] [address] [place] [address] USAUS thyroidon 54-99-7855CL thyroidST. [place] [address] Ultrasound Report Signed Patient: Bianca Toledo MR#: [id number] : 1960 Acct:[id number] Age/Sex: 64 / F ADM Date: 02/26/25 Loc: XT Room: Type: REG RCR Attending Dr: Rosemary Regalado - [facility] [place] Ordering Provider: Rosemary Regalado MD Date of Service: 02/26/25 US/US thyroid: C50.911 - Malignant neoplasm of unspecified site of right... Copies to: Rosemary Regalado MD Thyroid ultrasound Reason for exam: History of breast cancer. Goiter. Comparison: none Technique: Grayscale and color Doppler images of the thyroid gland were obtained. Findings: Right lobe measures 5.2 x 0.9 x 1.2 cm. The left lobe measures 5.6 x 1.6 x 2.5 cm. Isthmus measures 0.05 cm The thyroid appears heterogenous in echotexture without hyperemia on color Doppler imaging. A hypoechoic nodule seen involving the mid aspect of the left lobe measuring 23 x 19 x 14 mm. Microcalcifications are present. An additional hypoechoic nodule is seen with shadowing calcification inferior pole left lobe measuring 15 x 10 x 7 mm. US/US thyroid Impression: 2 suspicious nodules are seen involving the left lobe of the thyroid gland largest measuring 23 x 19 x 14 mm. FNA should be considered. Impression dictated by: Elieser Helms Jr., RaOValerie 02/26/2025 10:41 AM Dictation Location: [place] [address] Tech: Carrie Spears Transcribed By: EVELYN 02/26/25 1041 Dictated By: Elieser Helms Jr, DO 02/26/25 1038 Signed By: 02/26/[address] [address] Room Physician GroupUrea nitrogen [Mass/volume] in Serum or PlasmaOrdered By: Rosemary Regalado on 18-64-9992Wfkl nitrogen [Mass/Vol] 14 mg/dLNocarolinaeast medical center01-14Ohiohealth Shelby HospitalComment on above:Performed By: #### CUU #### [place] [id number] Basilio 01-18-2025L Specimen: [id number] Received: 01/18/25 Status: GIOVANNY Garza Num: [id number] Spec Type: Surgical Subm Dr: Alicja Phillips DO Tissues: A Breast Manson Lymph Node (R BREAST) B Breast Lumpectmy/Mass - Requiring Micros Eval of Margins (R BREAST MASS) C Breast Lumpectmy/Mass - Requiring Micros Eval of Margins (R BREAST MASS) Procedures: HE/20, Gross/Micro L5/3, Frozen Section, Froz Sec, Add, AE1-AE3/3, E CADHERIN/2, -, -, IHC First AB/3, IHC Add AB/5, SOX-10/2, GATA3/2, FS HE/4, DIFF QWIK/2 Age/ Patient Sex Location Account Attending Physician Bianca Toledo/F [place] [id number] Alicja Phillips, SPEC NUM: [id number] RECD: 01/18/25 STATUS: GIOVANNY GARZA NUM: [id number] HAMMAD: 01/18/[address] [facility] [address]: Alicja Phillips DO ENTERED: 01/18/25-[address] [facility] [address]: Joshua Dougherty, II, DO SPEC TYPE: Surgical DEPT: S ENTERED BY: [id number] RECV BY: [id number] ORDERED: HE/20, Gross/Micro L5/3, Frozen Section, Froz Sec, Add, AE1-AE3/3, E CADHERIN/2, -, -, IHC First AB/3, IHC Add AB/5, SOX-10/2, GATA3/2, FS HE/4, DIFF QWIK/2 ORDERED: HE/20, Gross/Micro L5/3, Frozen Section, Froz Sec, Add, AE1-AE3/3, E CADHERIN/2, -, -, IHC First AB/3, IHC Add AB/5, SOX-10/2, GATA3/2, FS HE/4, DIFF QWIK/2 Supplemental Report Addendum 2 Entered: 02/15/25 See Scanned Oncotype DX Breast Recurrence Score Report performed on the tissue block C3 . Addendum Signed (signature on file) Prudencio Soriano MD 02/15/25 7942 Addendum 1 Entered: 02/09/25 To issue Oncotype DX Breast Recurrence Score Report. Also see scanned report. Recurrence Score (RS) Result: 25 Distant Recurrence Risk at 9 Years: 12% Group Average Absolute Chemotherapy(CT) Benefit: <1% Specimen: [id number] Received: 01/18/25 Status: GIOVANNY Garza Num: [id number] Spec Type: Surgical Subm Dr: Alicja Phillips, Tissues: A Breast Manson Lymph Node (R BREAST) B Breast Lumpectmy/Mass - Requiring Micros Eval of Margins (R BREAST MASS) C Breast Lumpectmy/Mass - Requiring Micros Eval of Margins (R BREAST MASS) Procedures: HE/20, Gross/Micro L5/3, Frozen Section, Froz Sec, Add, AE1-AE3/3, E CADHERIN/2, -, -, IHC First AB/3, IHC Add AB/5, SOX-10/2, GATA3/2, FS HE/4, DIFF QWIK/2 Patient: Bianca Toledo [id number] (Continued) Specimen: [id number] Received: 01/18/25 (Continued) Supplemental Report (Continued) Signed (signature on file) Prudencio Soriano MD 01/21/25 1502 Specimen: [id number] Received: 01/18/25 Status: GIOVANNY Garza Num: [id number] Spec Type: Surgical Subm Dr: Alicja Phillips, DO Tissues: A Breast Manson Lymph Node (R BREAST) B Breast Lumpectmy/Mass - Requiring Micros Eval of Margins (R BREAST MASS) C Breast Lumpectmy/Mass - Requiring Micros Eval of Margins (R BREAST MASS) Procedures: HE/20, Gross/Micro L5/3, Frozen Section, Froz Sec, Add, AE1-AE3/3, E CADHERIN/2, -, -, IHC First AB/3, IHC Add AB/5, SOX-10/2, GATA3/2, FS HE/4, DIFF QWIK/2 Patient: Bianca Toledo [id number] (Continued) Specimen: [id number] Received: 01/18/25 (Continued) Supplemental Report (Continued) Addendum Signed (signature on file) Prudencio Soriano MD 02/09/25 0946 Pathological Diagnosis A. Right sentinel lymph node, excisional biopsy: - One lymph node negative for metastatic carcinoma with routine H E and AE1/AE3 stains (0/1). B. 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 - Resection margins uninvolved by invasive carcinoma (1 mm from medial margin). - Prior biopsy site changes with fat necrosis. - See Cancer Case Summary. C. Right breast, mass at 3:00, radioactive seed-localized lumpectomy: - Invasive pleomorphic lobular carcinoma, grade 2, 0.7 (more content not included)...[facility] Physician [facility] surgical specimen RTon 06-18-4679DK surgical specimen RTMER[facility] [address] [place] [address] Mammography Report Signed Patient: Bianca Toledo MR#: [id number] : 1960 Acct:[id number] Age/Sex: 64 / F Adm Date: 01/18/25 Loc: [place] Room: Type: [facility] Attending Dr: Alicja Phillips DO Ordering Provider: Alicja Phillips DO Date of Service: 01/18/25 Procedure(s): MM surgical specimen RT Accession Number(s): ([id number]) MM/MM surgical specimen RT: POST LUMPECTOMY Copies to: MD Alicja Lopez DO CLINICAL INFORMATION: [Right] breast lumpectomy. SPECIMEN RADIOGRAPH: Specimen A: A single radiograph of the [right] breast specimen showed a metallic marking clip and radioiodine seed within the [central] portion of the specimen. Specimen B: A single radiograph of the [right] breast specimen showed a metallic marking clip and magnetic seed within the [central] portion of the specimen. The images were reviewed by the attending physician during the procedure. Impression dictated by: Carlos Wade M.D. 01/18/2025 2:17 PM Dictation Location: RADIO-PC-23 Dictated By: Carlos Wade II, MD 01/18/25 1416 Signed By: 01/18/[address] [place] [address] Physician GroupMammography reportOrdered By: Carlos Wade on 58-45-9162Llesksrvhq imaging studyMER[facility] [address] [place] [address] Mammography Report Signed Patient: Bianca Toledo MR#: [id number] : 1960 Acct:[id number] Age/Sex: 64 / F Adm Date: 5 Loc: [place] Room: Type: [facility] Attending Dr: Alicja Phillips DO Ordering Provider: Alicja Phillips DO Date of Service: 01/18/25 Procedure(s): MM surgical specimen RT Accession Number(s): ([id number]) MM/MM surgical specimen RT: POST LUMPECTOMY Copies to: MD Alicja Lopez DO~ CLINICAL INFORMATION: [Right] breast lumpectomy. SPECIMEN RADIOGRAPH: Specimen A: A single radiograph of the [right] breast specimen showed a metallic marking clip and radioiodine seed within the [central] portion of the specimen. Specimen B: A single radiograph of the [right] breast specimen showed a metallic marking clip and magnetic seedwithin the [central] portion of the specimen. The images were reviewed by the attending physician during the procedure. Impression dictated by: Carlos Wade M.D. 01/18/2025 2:17 PM Dictation Location: RADIO-PC-23 Dictated By: Carlos Wade II, MD 01/18/25 1416 Signed By: 01/18/25 [facility] [place] [address] Work Phone: nm sentinel node w imagingon 44-31-4164BS sentinel node w imagingST. [facility] [place] [address] [place], [place] [id number] Nuclear Medicine Report Signed Patient: Bianca Toledo MR#: [id number] : 1960 Acct:[id number] Age/Sex: 64 / F ADM Date: 01/18/25 Loc: [place] Room: Type: [place] [facility] [place] Dr: Alicja Phillips DO Copies to: DO Elieser Barrera Jr, DO Ordering Provider: Alicja Phillips DO Date of Service: 01/18/25 NM/NM sentinel node w imaging: Right Breast Cancer Nuclear medicine sentinel node imaging. Reason for exam: Right breast cancer. FINDINGS: 0.386 mCi of technetium 99m sulfur colloid was injected into the right breast and delayed images were obtained. Delayed images demonstrate migration of the radiotracer to the right axilla. NM/NM sentinel node w imaging IMPRESSION: Migration of the radiotracer to the right axilla. Impression dictated by: Elieser Helms Jr., RaOValerie 01/18/2025 1:27 PM Dictation Location: [place] [address] Transcribed By: [facility] 01/18/25 1327 Dictated By: Elieser Helms Jr, DO 01/18/25 1327 Signed By: 01/18/[address] [place] [address] Physician GroupMammography reportOrdered By: Socrates Birmingham on 04-30-1963Xbyzullthn imaging studyDET[facility] [address] [place] [address] Mammography Report Signed Patient: Bianca Toledo MR#: [id number] : 1960 Acct:[id number] Age/Sex: 64 / F Adm Date: 5 Loc: [place]: [place] [facility] [place] Dr: Alicja Phillips DO Ordering Provider: Alicja Phillips DO Date of Service: 01/17/25 Procedure(s): MM diagnostic mammo RT w/CAD; US breast needle loc RT; US breast needle loc ea add Accession Number(s): ([id number]) US/US breast needle loc RT: CA ([id number]) US/US breast needle loc ea add: CA ([id number]) MM/MM diagnostic mammo RT w/CAD: POST SEED PLACEMENT Copies to: MD Alicja Lopez DO~ ULTRASOUND GUIDED RADIOIODINE SEED LOCALIZATION OF THE RIGHT BREAST: CLINICAL DATA: Breast cancer PROCEDURE: The preliminary ultrasonographic scans of the right breast demonstrates mass 2:00 6 cm from nipple a mass 8:00 8 cm from the nipple. Following sterile preparation and local anesthetics a needle containing of 209 ?Ci of iodine 125 was placed under the ultrasonographic guidance was placed at the 8:00mass. Subsequently, magnetic seed placed at the 2:00 mass noted within the periphery of the mass onthe sonographic images. Following confirmation of the tip of the needle position an Iodine seed wasdeployed. Adjacent to the needle entry the skin was marked 1 SEED to indicate the seed localization. The patient tolerated the procedure well and left the department in stable condition. MM/MM diagnostic mammo RT w/CAD IMPRESSION: STATUS POST RADIOIODINE AND MAGNETIC FIELD SEED LOCALIZATION OF THE [RIGHT] BREAST. POSTPROCEDURE MAMMOGRAMS: Craniocaudal and mediolateral oblique views of the right breast were performed using low dose digital technique and compared to the previous right breast mammograms dated 12/08/2024. A small radioiodine seed is noted adjacent to a metallic marking clip within the 2:00 aspect of the right breast. Themagnetic seed is 5 mm from the clip 8:00 position right breast. IMPRESSION: TECHNICALLY SUCCESSFUL ULTRASOUND GUIDED SEED LOCALIZATION OF THE RIGHT BREAST. RESULT CODE: NL Impression dictated by: Socrates Birmingham M.D. 01/17/2025 9:54 AM Dictation Location: DWS01 Dictated By: Socrates Birmingham MD 01/17/25 0950 Signed By: 01/17/25 0954 [facility] Work Phone: US breast needle loc RTon [id number] breast needle loc [facility] [address] [place] [address] Mammography Report Signed Patient: Bianca Toledo MR#: [id number] : 1960 Acct:[id number] Age/Sex: 64 / F Adm Date: 01/06/25 Loc: [place]: [place] [facility] [place] Dr: Alicja Phillips DO Ordering Provider: Alicja Phillips DO Date of Service: 01/17/25 Procedure(s): MM diagnostic mammo RT w/CAD; US breast needle loc RT; US breast needle loc ea add Accession Number(s): ([id number]) US/US breast needle loc RT: CA ([id number]) US/US breast needle loc ea add: CA ([id number]) MM/MM diagnostic mammo RT w/CAD: POST SEED PLACEMENT Copies to: MD Alicja Lopez DO ULTRASOUND GUIDED RADIOIODINE SEED LOCALIZATION OF THE RIGHT BREAST: CLINICAL DATA: Breast cancer PROCEDURE: The preliminary ultrasonographic scans of the right breast demonstrates mass 2:00 6 cm from nipple a mass 8:00 8 cm from the nipple. Following sterile preparation and local anesthetics a needle containing of 209 ?Ci of iodine 125 was placed under the ultrasonographic guidance was placed at the 8:00 mass. Subsequently, magnetic seed placed at the 2:00 mass noted within the periphery of the mass on the sonographic images. Following confirmation of the tip of the needle position an Iodine seed was deployed. Adjacent to the needle entry the skin was marked 1 SEED to indicate the seed localization. The patient tolerated the procedure well and left the department in stable condition. MM/MM diagnostic mammo RT w/CAD IMPRESSION: STATUS POST RADIOIODINE AND MAGNETIC FIELD SEED LOCALIZATION OF THE [RIGHT] BREAST. POSTPROCEDURE MAMMOGRAMS: Craniocaudal and mediolateral oblique views of the right breast were performed using low dose digital technique and compared to the previous right breast mammograms dated 12/08/2024. A small radioiodine seed is noted adjacent to a metallic marking clip within the 2:00 aspect of the right breast. The magnetic seed is 5 mm from the clip 8:00 position right breast. IMPRESSION: TECHNICALLY SUCCESSFUL ULTRASOUND GUIDED SEED LOCALIZATION OF THE RIGHT BREAST. RESULT CODE: NL Impression dictated by: Socrates Birmingham M.D. 01/17/2025 9:54 AM Dictation Location: [facility] Dictated By: Socrates Birmingham MD 01/17/25 0950 Signed By: 01/17/[address] Physician GroupISTAT XRAY CREon 01-03-2025 Creatinine [Mass/Vol]0.6 mg/dL0.6 - 1.3 mg/dLSaint Luke's Health SystemComment on above: ER/ESD physician is notified/shown all ISTAT results. Critical values may be confirmed by laboratory testing if deemed necessary by ER attending doctor. ISTAT [facility]MR [facility] CADon [id number] breast BI wo/w con [facility] [place] [address] MRI Report Signed Patient: Bianca Toledo MR#: [id number] : 1960 Acct:[id number] Age/Sex: 64 / F ADM Date: 12/31/24 Loc: Room: Type[facility] Attending Dr: Alicja Phillips DO Copies to: Alicja Phillips DO Ordering Provider: Alicja Phillips DO Date of Service: 12/31/24 MR/MR breast BI wo/w con CAD: C50.911 BILATERAL BREAST MRI WITHOUT AND WITH INTRAVENOUS CONTRAST CLINICAL HISTORY: History of ultrasound-guided breast biopsy of 2 masses involving the right breast yielding invasive breast carcinoma grade 2. COMPARISON: Ultrasound biopsy 12/08/2024. Outside diagnostic mammogram and ultrasound 11/25/2024 TECHNIQUE: Multisequence, multiplanar imaging of the breasts were obtained before and after the use of IV contrast. All imaged data was reviewed using the Shareight system. The postcontrast images were subtracted and CAD mapping of the enhancement kinetics was performed. Kinetic curves were generated. 2D and 3D MIP images were also reviewed. FINDINGS: The breast parenchyma is heterogeneously dense with minimal background parenchymal enhancement. Left breast: No suspicious masslike or nonmass-like enhancement. No chest wall abnormality. No suspicious left-sided intramammary or axillary lymph nodes. Right breast: There is a masslike enhancement is seen at the approximately 2:00 position of the right breast, posterior depth with associated biopsy clip consistent with the history. The enhancement measures approximately 6 mm in the AP, 7 mm in the transverse and approximately 9 mm in the craniocaudal dimensions. The additional previously biopsied mass at the 8:00 position, middle depth is also once again noted at biopsy clip in place with enhancement measuring approximately 8 mm in the AP, 7 mm in the transverse and approximately 8 mm in the craniocaudal dimensions. There is presumed intraductal extension anteriorly of approximately 2.3 cm best seen on the sagittal series. No additional areas of suspicious masslike or nonmass-like enhancement within the right breast. No chest wall abnormality. No suspicious right-sided intramammary or axillary lymph nodes. MR/MR breast BI wo/w con CAD IMPRESSION: NO MRI EVIDENCE OF MALIGNANCY IS SEEN INVOLVING THE LEFT BREAST. PREVIOUSLY BIOPSIED MASS LIKE AREAS OF ENHANCEMENT ARE ONCE AGAIN NOTED AT THE 2:00 AND 8:00 POSITIONS OF THE RIGHT BREAST DESCRIBED ABOVE. NO ADDITIONAL AREAS OF SUSPICIOUS MASSLIKE OR NONMASS-LIKE ENHANCEMENT IS SEEN WITHIN THE RIGHT BREAST. FINDINGS ARE CONSISTENT WITH MULTICENTRIC DISEASE. NO MRI EVIDENCE OF CHEST WALL INVASION OR LOCAL METASTATIC DISEASE. RESULT CODE: 6 Known Biopsy Proven Malignancy FOLLOW UP: IMM Impression dictated by: Elieser Helms Jr., D.O. 01/03/2025 3:11 PM Dictation Location: [facility] Transcribed By: [facility] 01/03/25 1511 Dictated By: Elieser Helms Jr, DO 01/03/25 1458 Signed By: 01/03/25 1511NoCritical access hospital Physician GroupISTAT XRay CREon [id number] GFR>60.0NoCritical access hospital Physician GroupComment on above:Result Comment: PERFORMED BY: [place] [address] PATHOLOGIST STATE INSPECTOR SHAY VILLA M.D.Performed By: #### ISCRE #### [place] [address] USANo Panel InformationOrdered By: Alicja Phillips on 13-29-3389Cfpnbgn Estimated GFR (eGFR)> 60.0[facility] Whole blood creatinine measurementOrdered By: Alicja Phillips on 12-31-2024 Creatinine [Mass/Vol]0.6 mg/dLNormal0.6-1.3FSt. Francis Hospital Comment on above:ER/ESD physician is notified/shown all ISTAT results.Critical values may be confirmed by laboratorytesting ifdeemed necessary by ER attending doctor.Result Comment: ER/ESD physician is notified/shown all ISTAT results. Critical values may be confirmed by laboratory testing if deemed necessary by ER attending doctor.Performed By: #### ISCRE #### [facility] [address] [place] [address] USAUrine Cultureon [id number] identified Cx Nom (U) ORGANISM: Strep agalactiae - (group b) (O:STRAGA) Coleman Count 15,000 Organism Comments Pure Growth PERFORMED BY: [place] [address] PATHOLOGIST STATE INSPECTOR SHAY VILLA M.D.NormalThe [facility] Physician GroupComment on above: Performed By: #### CUU #### [facility] [address] [place] [address] USAUrine cultureOrdered By: Amalia Hopkins on 12-25-2024 Bacteria identified Cx Nom (U)Strep agalactiae - (group b)AbnormalOhiohealth Shelby HospitalLon 12-08-2024L Specimen: [id number] Received: 12/08/24 Status: GIOVANNY Garza Num: [id number] Spec Type: Surgical Subm Dr: Elieser Helms Jr, DO Tissues: A BREAST CORE NO CALCS (RIGHT BREAST 8 CM) B BREAST CORE NO CALCS (RIGHT BREAST 6 CM) Procedures: HE/8, Gross/Micro L4/2, E CADHERIN/2, ER/2, Ki-67/2, DC/2, IHC First AB/2 Age/ Patient Sex Location Account Attending Physician Bianca Toledo 64/F SUSANNA [id number] Stephen Daigle MD SPEC NUM: [id number] RECD: 12/08/24-142 STATUS: GIOVANNY RERick NUM: [id number] HAMMAD: 12/08/24-[address] [facility] [address]: Elieser Helms Jr, DO ENTERED: 12/08/24-[address]: Alicja Phillips DO SPEC TYPE: Surgical DEPT: S ENTERED BY: [id number] RECV BY: [id number] ORDERED: DAVON/8, Gross/Micro L4/2, E CADHERIN/2, ER/2, Ki-67/2, DC/2, IHC First AB/2 ORDERED: HE/8, Gross/Micro L4/2, E CADHERIN/2, ER/2, Ki-67/2, DC/2, IHC First AB/2, IMMUNOHISTOCHEM/6 This report is amended to clarify the location/site designation of specimen B. The report should read: B. Right breast, 2:00, 6 cm from nipple The original diagnosis remains unchanged. Addendum Signed (signature on file) Shant Moreno Jr., MD 12/13/24 0914 Supplemental Report Addendum 2 Entered: 12/18/24-0518 This supplemental is issued to report the results of the FISH analysis for HER2 performed at [facility] ([id number]). A summary report of the HER2 results is also attached. The complete reports have been scanned into the patient's medical record Specimen: [id number] Received: 12/08/24 Status: SAMSadie Garza Num: [id number] Spec Type: Surgical Subm Dr: Elieser Helms Jr, DO Tissues: A BREAST CORE NO CALCS (RIGHT BREAST 8 CM) B BREAST CORE NO CALCS (RIGHT BREAST 6 CM) Procedures: HE/8, Gross/Micro L4/2, E CADHERIN/2, ER/2, Ki-67/2, DC/2, IHC First AB/2 Patient: Bianca Toledo [id number] (Continued) Specimen: [id number] Received: 12/08/24 (Continued) Supplemental Report (Continued) Signed (signature on file) Tin Martini MD 12/10/24 1459 Specimen: [id number] Received: 12/08/24 Status: GIOVANNY Garza Num: [id number] Spec Type: Surgical Subm Dr: Elieser Helms, , DO Tissues: A BREAST CORE NO CALCS (RIGHT BREAST 8 CM) B BREAST CORE NO CALCS (RIGHT BREAST 6 CM) Procedures: HE/8, Gross/Micro L4/2, E CADHERIN/2, ER/2, Ki-67/2, DC/2, IHC First AB/2 Patient: Bianca Toledo [id number] (Continued) Specimen: [id number] Received: 12/08/241139 (Continued) Supplemental Report (Continued) FISH HER2/ÁLVARO-17 Dual-Probe (Breast Cancer) RESULT: FINAL HER2 RESULT IS NEGATIVE (per 2018 ASCO/CAP guidelines). See result comments HER2 IHC Result is 2+ HER2 FISH Result: Cannot be determined (Group 4) Addendum Signed (signature on file) Shant Moreno Jr., MD 12/18/24 1525 Addendum 1 Entered: 12/17/24-3043 This supplemental report is issued to report the results of the HER2 prognostic marker analysis performed at [facility] ([facility] oncology reference number [id number]) BREAST PREDICTIVE/PROGNOSTIC MARKER ANALYSIS A. Specimen site: Right Breast 8:00, 8 cmfn (block A1) RESULTS: HER2 Ultralow (see comments) Score: 0 Analysis: Manual B. Specimen site: Right Breast 2:00, 6 cmfn (block B1) RESULTS: HER2 Equivocal Score: 2+ Analysis: Manual FISH testing being performed. The complete report has been scanned into the patient's medical record. Specimen: [id number] Received: 12/08/24 Status: GIOVANNY Garza Num: [id number] Spec Type: Surgical Subm Dr: Elieser Helms Jr, DO Tissues: A BREAST CORE NO CALCS (RIGHT BREAST 8 CM) B BREAST CORE NO CALCS (RIGHT BREAST 6 CM) Procedures: HE/8, Gross/ (more content not included)...NormalThe [facility] Physician GroupUS biopsy RT add lesion guidon [id number] biopsy RT add lesion [facility] [place] [address] Ultrasound Report Signed with Lynn Patient: Bianca Toledo MR#: [id number] : 1960 Acct:[id number] Age/Sex: 64 / F ADM Date: 12/08/24 Loc: [facility] Room: Type: [facility] Attending Dr: Stephen Daigle MD Ordering Provider: Stephen Daigle MD Date of Service: 12/08/24 US/US biopsy RT 1st lesion guid: N63.14 ([id number]) US/US biopsy RT add lesion guid: N63.14 ([id number]) MM/MM post biopsy RT w/CAD: CLIP PLACEMENT Copies to: Stephen Daigle MD ADDENDUM 1 Addendum for pathology: 2 sites Ultrasound-guided biopsy of mass 8 o'clock position right breast: Invasive breast carcinoma grade 2. ER/DC positive. Finding is malignant and concordant with imaging. Ultrasound-guided biopsy of mass 2:00 position right breast: Invasive breast carcinoma grade 2. ER/DC positive. Finding is malignant and concordant with imaging. Surgical/oncologic management is recommended. Impression dictated by: Elieser Helms Jr., D.O. 12/13/2024 9:18 AM Dictation Location: [place] [address] Addendum Dictated By: Elieser Helms Jr DO Addendum Signed By: 12/13/24917 Addendum Cosigned By: DD/ TD/TT: 12/13/24 ULTRASOUND GUIDED VACUUM-ASSISTED HOLOGIC ATEC SYSTEM CORE BIOPSIES OF THE RIGHT BREAST: 2 sites CLINICAL DATA: Breast mass in o'clock position right breast as well as 2:00 position right breast PROCEDURE: The risks, benefits and alternatives to an ultrasound guided vacuum- assisted Hologic ATEC system core biopsy procedure were discussed with the patient and written informed consent was obtained. Site 1: Ultrasonographic survey of the 8:00 position of the right breast was performed by glass technologist . Additional scanning of the right [...] of the right breast was performed by glass technologist . The patient's overlying skin was anesthetized with 1% lidocaine. The deeper soft tissues up to and around the mass were anesthetized with lidocaine mixed with epinephrine. Following this, multiple core biopsies of the breast mass were performed using a 12-gauge Suros vacuum- assisted core biopsy needle under ultrasound guidance. Multiple [...] NL Impression dictated by: Elieser Helms Jr., D.O. 12/08/2024 1:46 PM Dictation Location: [facility] Tech: Deepthi Gaspar Transcribed By: EVELYN 12/08/24 1346 Dictated By: Elieser Helms Jr, DO 12/08/24 1312 Signed By: 12/08/24 1346[facility] CenterBI MAMMOGRAM DIAGNOSTIC TOMOSYNTHESIS RIGHTon [id number] MAMMOGRAM DIAGNOSTIC TOMOSYNTHESIS RIGHTThis is a summary report. The complete report [...] view of the right breast were obtained. The2 areas of asymmetric density noted on the screening mammogram study are again identified. One of the areas is approximately 0.7 x 0.6 cm and is located at the mid level medially. This area is mildlylobulated. The other area is approximately 0.6 x [...] screening mammogram study are again identified, they appearto correlate with solid appearing areas of concern [...] IS VERY IMPORTANT TO YOUR HEALTH. THE [employer] GUIDELINES RECOMMEND THATWOMEN 40 YEARS OF AGE AND OLDER SHOULD HAVE A MAMMOGRAM EVERY YEAR. A REMINDER LETTER WILL BE SENT AT THE APPROPRIATE TIME. ELECTRONICALLY SIGNED BY: Cong Walsh M.D.AbnormalNot AvailableBI US BREAST LIMITED RIGHTon [id number] US BREAST LIMITED RIGHTThis is a summary report. The complete report is available in the patient's medical record. If you cannot access the medical record, please contact the sending organization for a detailed fax or copy. Examination: BI US BREAST LIMITED RIGHT Reason for Study: abnormal mammogram Comparison: Screening mammogram study of the breasts dated 11/18/2024 and diagnostic mammogram studyof the right breast dated 11/25/2024. Technique: Right breast ultrasound study was performed. Findings: At approximately the 2 o'clock position at least 6 cm from the nipple there is an area ofdecreased echogenicity with internal echoes, mild lobulation and [...] with one of the asymmetric densities on themammogram study. When correlating the studies the possibility of neoplasm cannot be excluded. Regarding both findings, follow-up tissue diagnosis by means of ultrasound- guided needle biopsy is recommended for further evaluation. Suspicious findings. IMPRESSION: Impression: Right breast ultrasound study demonstrates what appear to be 2 solid irregular areas atthe 2:00 and 8:00 positions as described. These are felt to correlate with the asymmetric densitiesnoted on the mammogram studies. When correlating all studies the possibility of neoplasm cannot be excluded. Follow-up tissue diagnosis of both areas by means of ultrasound-guided needle biopsy is recommendedfor further evaluation. BI-RADS 4 ELECTRONICALLY SIGNED BY: Cong Walsh M.D.NormalNot AvailableBI MAMMOGRAM SCREENING TOMOSYNTHESIS BILATERALon [id number] MAMMOGRAM SCREENING TOMOSYNTHESIS BILATERALThis is a summary report. The complete report [...] IS VERY IMPORTANT TO YOUR HEALTH. THE [employer] GUIDELINES RECOMMEND THATWOMEN 40 YEARS OF AGE AND OLDER SHOULD HAVE A MAMMOGRAM EVERY YEAR. A REMINDER LETTER WILL BE SENT AT THE APPROPRIATE TIME. THIS FACILITY UTILIZES A REMINDER SYSTEM TOENSURE ALL PATIENTS RECEIVE REMINDER NOTIFICATIONS AT THE [...] ANY PENDING ADDITIONAL VIEWS. ELECTRONICALLY SIGNED BY: Denton Zapata AvailableUrine Culture on 11-03-6290Zyzxomrb identified Cx Nom (U)Urine Culture Results 50,000 colonies/ml Mixed Bacterial Skin Contaminants 2 Days Staphylococcus epidermidis removed from report on 10/15/24. PERFORMED BY: [address] [address] PATHOLOGIST STATE INSPECTOR TEN CHUN M.D.[facility] Physician GroupComment on above: Performed By: #### CUU #### [address] StreetUrine cultureOrdered By: Amalia Hopkins on 10-13-2024 Bacteria identified Cx Nom (U)[facility] HospitalINSULINon [id number] uIU/mLNormal2.6-24.9The [facility] HospitalComment on above: Performed By: #### INSULIN #### [facility] [address] [place] [address] Dr. Ara Villarreal AUTO DIFFon [id number] #0.1 103/ulNormal0.0-0.1The [facility] HospitalComment on above:Performed By: #### CBC #### [facility] [address] [place] [address] Dr. Ara AnneBasophils/100 WBC (Bld)0.7 %Normal0.2-2.0The [facility] Comment on above:Performed By: #### CBC #### [facility] [address] [place] [address] Dr. Ara Victoria #0.3 103/ulNormal0.0-0.7The [facility] HospitalComment on above: Performed By: #### CBC #### [facility] [address] [place] [address] Dr. Ara Leesosinophils/100 WBC (Bld)3.5 %Normal0.9-7.0The [facility] Comment on above:Performed By: #### CBC #### [facility] [address] [place] [address] Dr. Ara Leesrythrocyte distribution width (RBC) [Ratio]11.5 %Niabsn23.0-15.0 The [facility] HospitalComment on above:Performed By: #### CBC #### [facility] [address] [place] [address] Dr. Ara AnneHematocrit (Bld) [Volume fraction]44.0 %Dndpip87.0-48.0The [facility] HospitalComment on above:Performed By: #### CBC #### [facility] [address] [place] [address] Dr. Yilan ChangHemoglobin (Bld) [Mass/Vol]15.0 g/pHHfzaiv26.0-16.0The [facility] HospitalComment on above:Performed By: #### CBC #### [facility] [address] [place] [address] Dr. Ara Gomez #0.02 10e3/ulNormal0.00-0.03The [facility] HospitalComment on above:Performed By: #### CBC #### [facility] [address] [place] [address] Dr. Ara Gomez %0.2 %Normal0.0-0.5The [facility] HospitalComment on above: Performed By: #### CBC #### [facility] [address] [place] [address] Dr. Ara Moscoso #3.0 103/ulNormal1.2-3.8The [facility] HospitalComment on above:Performed By: #### CBC #### [facility] [address] [place] [address] Dr. Ara Edmondshocytes/100 WBC (Bld)34.8 %Bxlpxs61.5-60.0The [facility] HospitalComment on above:Performed By: #### CBC #### [facility] [address] [place] [address] Dr. Ara RachelUAL DIFF REQNONormalThe [facility] HospitalComment on above: Performed By: #### CBC #### [facility] [address] [place] [address] Dr. Ara Maldonado (RBC) [Entitic mass]31.6 mvGfhrmd79.7-34.0The [facility] HospitalComment on above:Performed By: #### CBC #### [facility] [address] [place] [address] Dr. Ara Maldonado (RBC) [Mass/Vol]34.1 g/pAPejxvp60.9-35.2The [facility] HospitalComment on above:Performed By: #### CBC #### [facility] [address] [place] [address] Dr. Ara Hinds (RBC) [Entitic vol]92.6 dQRzdeis12.0-99.0The [facility] HospitalComment on above:Performed By: #### CBC #### [facility] [address] [place] [address] Dr. Ara Redd #0.8 103/ulNormal0.3-0.8The [facility] HospitalComment on above:Performed By: #### CBC #### [facility] [address] [place] [address] Dr. Ara Morganocytes/100 WBC (Bld)9.1 %Normal1.7-12.0The [facility] Comment on above:Performed By: #### CBC #### [facility] [address] [place] [address] Dr. Ara Walker #4.4 103/ulNormal1.4-6.5The [facility] HospitalComment on above:Performed By: #### CBC #### [facility] [address] [place] [address] Dr. Ara Mistryutrophils/100 WBC (Bld)51.7 %Wmxttz72.0-75.0The [facility] HospitalComment on above:Performed By: #### CBC #### [facility] [address] [place] [address] Dr. Ara Montanez mean volume (Bld) [Entitic vol]9.6 fLNormal9.5-13.5The [facility] HospitalComment on above:Performed By: #### CBC #### [facility] [address] [place] [address] Dr. Ara PlunkettT253 103/csLiuyyn041-316Mct [facility] HospitalComment on above: Performed By: #### CBC #### [facility] [address] [place] [address] Dr. Ara AnneRBC4.75 106/ulNormal4.20-5.40The [facility] HospitalComment on above:Performed By: #### CBC #### [facility] [address] [place] [address] Dr. Ara StewartBC8.6 103/ulNormal4.0-11.0The [facility] HospitalComment on above: Performed By: #### CBC #### [facility] [address] [address] [address] Ara Madrid THYROXINE INDEX T7on 78-91-5639AVG3.42Izgzvv6.30-4.50The [facility] HospitalComment on above:Performed By: #### INSULIN #### [facility] [address] [address] [address] Ara AnneT3U36.0 %Rnvuwq10.0-39.0The [facility] HospitalComment on above: Performed By: #### INSULIN #### [facility] [address] [place] [address] Dr. Ara AnneT4 [Mass/Vol]9.60 ug/dLNormal4.80-13.90The [facility] Comment on above:Performed By: #### INSULIN #### [facility] [address] [place] [address] Dr. Ara AnneGLYCOHEMOGLOBIN A1Con [id number] RECOMMENDATIONSEE BELOWNormal The [facility] HospitalComment on above:Result Comment: ADA RECOMMENDED LIMIT 4.0 - 6.0 ADA THERAPEUTIC TARGET < 7.0 ACTION SUGGESTED > 7.0Performed By: #### INSULIN #### [facility] [address] [place] [address] Dr. Ara AnneGlucose [Mass/Vol]111 mg/dLNormalThe [facility] HospitalComment on above:Performed By: #### INSULIN #### [facility] [address] [place] [address] Dr. Ara AnneHbA1c (Bld) [Mass fraction]5.5 %Normal4.5-6.2The [facility] HospitalComment on above:Performed By: #### INSULIN #### [facility] [address] [place] [address] Dr. Ara AnneIROAlisa 30-10-1165Nmsz [Mass/Vol]108.0 ug/mGUmyqpe17.0-170.0The [facility] HospitalComment on above:Performed By: #### INSULIN #### [facility] [address] [address] [address] Ara AnneLIPID PROFILEon 43-15-7226AYUT-HDL RATIO NORMSPike Community HospitalComment on above:Result Comment: 3.3 - 4.4 LOW RISK 4.4 - 7.1 AVERAGE RISK 7.1 - 11.0 MODERATE RISK >11.0 HIGH RISKPerformed By: #### INSULIN #### [facility] [address] [address] [address] Ara AnneCholesterol [Mass/Vol]184 mg/dLNormal<=200[facility] Comment on above:Performed By: #### INSULIN #### [facility] [address] [address] [address] Ara AnneCholesterol in HDL [Mass/Vol]61 mg/dLCritically uzxg24-97Skv [facility] HospitalComment on above:Performed By: #### INSULIN #### [facility] [address] [address] [address] Ara AnneCholesterol in LDL [Mass/Vol]95.0 mg/dLMercy Health Kings Mills HospitalComment on above:Performed By: #### INSULIN #### [facility] [address] [address] [address] Ara AnneCholesterantonio.total/Cholesterol in HDL [Mass ratio]3.0 {ratio} NormalSelect Medical [facility] HospitalComment on above:Performed By: #### INSULIN #### [facility] [address] [address] [address] Ara AnneHDL NORMAL> or = 60 mg/dl - LOW CARDIOVASCULAR RISK <40 mg/dl - HIGH CARDIOVASCULAR RISKMercy Health Kings Mills HospitalComment on above:Performed By: #### INSULIN #### [facility] [address] [address] [address] Ara AnneLDL CALC NORMALSEE German HospitalComment on above:Result Comment: <100 mg/dl OPTIMAL 100 - 129 mg/dl NEAR OR ABOVE OPTIMAL 130 - 159 mg/dl BORDERLINE HIGH 160 - 189 mg/dl HIGH >190 mg/dl VERY HIGH Performed By: #### INSULIN #### [facility] [address] [place] [address] Dr. Ara AnneTriglyceride [Mass/Vol]140 mg/dLNormal<=150The [facility] Comment on above:Performed By: #### INSULIN #### [facility] [address] [address] [address] Ara AnneVLDL CALC28.0 mg/dLNormalThe [facility] HospitalComment on above: Performed By: #### INSULIN #### [facility] [address] [place] [address] Dr. Ara AnnePROF 14(COMP METB)on 27-21-0974Bxnhvis [Mass/Vol]3.9 g/dLNormal 3.4-5.0The [facility] HospitalComment on above:Performed By: #### INSULIN #### [facility] [address] [place] [address] Dr. Ara AnneAlbumin/Globulin [Mass ratio]1.1 {ratio}NormalThe [facility] HospitalComment on above:Performed By: #### INSULIN #### [facility] [address] [place] [address] Dr. Ara Kumar [Catalytic activity/Vol]89 U/ONzudxu92-006Bhs [facility] HospitalComment on above:Performed By: #### INSULIN #### [facility] [address] [place] [address] Dr. Ara Lopez [Catalytic activity/Vol]20 U/SKdjddr53-46Yes [facility] HospitalComment on above:Performed By: #### INSULIN #### [facility] [address] [address] [address] Ara Larsen gap [Moles/Vol]11.4 mmol/LNormalThe [facility] Comment on above:Performed By: #### INSULIN #### [facility] [address] [place] [address] Dr. Ara Valdez [Catalytic activity/Vol]19 U/BYtpjuu62-47Obu [facility] Hospitalment on above:Performed By: #### INSULIN #### [facility] [address] [address] [address] Ara AnneBilirubin [Mass/Vol]0.4 mg/dLNormal0.2-1.0[facility] Comment on above:Performed By: #### INSULIN #### [facility] [address] [address] [address] Ara AnneCalcium [Mass/Vol]9.8 mg/dLNormal8.5-10.1The [facility] Comment on above:Performed By: #### INSULIN #### [facility] [address] [address] [address] Ara AnneChloride [Moles/Vol]101 mmol/TUwbfdu81-952OpqSelect Medical [facility] Comment on above:Performed By: #### INSULIN #### [facility] [address] [address] [address] Ara AnneCO2 [Moles/Vol]29.7 mmol/GTueamx82.0-32.0[facility] Comment on above:Performed By: #### INSULIN #### [facility] [address] [address] [address] Ara AnneCreatinine [Mass/Vol]0.62 mg/dLNormal0.55-1.02[facility] HospitalComment on above:Performed By: #### INSULIN #### [facility] [address] [address] [address] Ara LeesGFR-AF WALLISIAN>60Normal>=60The [facility] HospitalComment on above:Performed By: #### INSULIN #### [facility] [address] [address] [address] Aar LeesGFR-NON AF WALLISIAN>60Normal>=60The [facility] HospitalComascension genesys hospital on above:Performed By: #### INSULIN #### [facility] [address] [address] [address] Ara AnneGlobulin (S) [Mass/Vol]3.7 g/dLNormalThe [facility] HospitalComment on above:Performed By: #### INSULIN #### [facility] [address] [address] [address] Ara AnneGlucose [Mass/Vol]95 mg/eIPqryvz39-374Ttd [facility] Comment on above:Performed By: #### INSULIN #### [facility] [address] [address] [address] Ara AnnePotassium [Moles/Vol]4.1 mmol/LNormal3.5-5.1The [facility] Comment on above:Performed By: #### INSULIN #### [facility] [address] [address] [address] Ara AnneProtein [Mass/Vol]7.6 g/dLNormal6.4-8.2The [facility] Comment on above:Performed By: #### INSULIN #### [facility] [address] [address] [address] Ara AnneSodium [Moles/Vol]138 mmol/TSspdrc000-221Qdw [facility] Comment on above:Performed By: #### INSULIN #### [facility] [address] [address] [address] Ara AnneUrea nitrogen [Mass/Vol]16.0 mg/dLNormal7.0-18.0The [facility] HospitalComment on above:Performed By: #### INSULIN #### [facility] [address] [address] [address] Ara AnneUrea nitrogen/Creatinine [Mass ratio]25.8 mg/mgNormalThe [facility] HospitalComment on above:Performed By: #### INSULIN #### [facility] [address] [address] [address] Ara Vaughn 55-35-8672KCQ6.311 uIU/mLCritically low0.358-3.740The [facility] HospitalComment on above:Performed By: #### INSULIN #### [facility] [address] [address] [address] Ara Paul Visiton 79-13-8215Evvdep-up [id number] Bianca [place] 1960 F Date Provider Department Center 05/07/2022 JoseIMERLORRI [facility] Family History Problem Relation Age of Onset Stroke Father 63 Family Status - Relation Status Age at Father Level of Service:72512 DC OFFICE/OUTPATIENT NEW HIGH MDM 60-74 MINUTES Reason for Visit and Comments: Palpitations [637283]NormalUniversity Hospitals Portage Medical CenterCBC AUTO DIFFon 06-26-5642PTLW #0.1 103/ulNormal0.0-0.1The [facility] HospitalComment on above: Performed By: #### CBC #### [facility] [address] [address] [address] Ara AnneBasophils/100 WBC (Bld)0.7 %Normal0.2-2.0[facility] Comment on above:Performed By: #### CBC #### [facility] [address] [address] [address] Ara Victoria #0.5 103/ulNormal0.0-0.7The [facility] HospitalComment on above: Performed By: #### CBC #### [facility] [address] [address] [address] Ara Leesosinophils/100 WBC (Bld)4.7 %Normal0.9-7.0[facility] Comment on above:Performed By: #### CBC #### [facility] [address] [address] [address] Ara Leesrythrocyte distribution width (RBC) [Ratio]11.9 %Etfgbx95.0-15.0 [facility] HospitalComment on above:Performed By: #### CBC #### [facility] [address] [address] [address] Ara AnneHematocrit (Bld) [Volume fraction]45.3 %Jnxpaq96.0-48.0[facility] HospitalComment on above:Performed By: #### CBC #### [facility] [address] [address] [address] Ara AnneHemoglobin (Bld) [Mass/Vol]15.5 g/pTRyrhko43.0-16.0The [facility] HospitalComment on above:Performed By: #### CBC #### [facility] [address] [place] [address] Dr. Ara Gomez #0.03 10e3/ulNormal0.00-0.03The [facility] HospitalComment on above:Performed By: #### CBC #### [facility] [address] [place] [address] Dr. Ara Gomez %0.3 %Normal0.0-0.5The [facility] HospitalComment on above: Performed By: #### CBC #### [facility] [address] [place] [address] Dr. Ara Moscoso #4.3 103/ulCritically high1.2-3.8The [facility] Comment on above:Performed By: #### CBC #### [facility] [address] [place] [address] Dr. Ara Edmondshocytes/100 WBC (Bld)39.0 %Qvrhxl14.5-60.0The [facility] HospitalComment on above:Performed By: #### CBC #### [facility] [address] [place] [address] Dr. Ara Esqueda DIFF REQNONormalThe [facility] HospitalComment on above: Performed By: #### CBC #### [facility] [address] [place] [address] Dr. Ara Maldonado (RBC) [Entitic mass]32.2 pvZbfkhl97.7-34.0The [facility] HospitalComment on above:Performed By: #### CBC #### [facility] [address] [place] [address] Dr. Ara Maldonado (RBC) [Mass/Vol]34.2 g/bMZxhxbb14.9-35.2The [facility] HospitalComment on above:Performed By: #### CBC #### [facility] [address] [place] [address] Dr. Ara Maldonado (RBC) [Entitic vol]94.2 hQCnazoi46.0-99.0The [facility] HospitalComment on above:Performed By: #### CBC #### [facility] [address] [place] [address] Dr. Ara Redd #1.0 103/ulCritically high0.3-0.8The [facility] Comment on above:Performed By: #### CBC #### [facility] [address] [place] [address] Dr. Ara Morganocytes/100 WBC (Bld)8.6 %Normal1.7-12.0The [facility] Comment on above:Performed By: #### CBC #### [facility] [address] [place] [address] Dr. Ara Walker #5.2 103/ulNormal1.4-6.5The [facility] HospitalComment on above:Performed By: #### CBC #### [facility] [address] [place] [address] Dr. Ara Mistryutrophils/100 WBC (Bld)46.7 %Bxgxbc54.0-75.0The [facility] HospitalComment on above:Performed By: #### CBC #### [facility] [address] [place] [address] Dr. Ara Canolet mean volume (Bld) [Entitic vol]10.2 fLNormal9.5-13.5The [facility] HospitalComment on above:Performed By: #### CBC #### [facility] [address] [place] [address] Dr. Ara PlunkettT281 103/ofSfhsdx386-257Sez [facility] HospitalComment on above: Performed By: #### CBC #### [facility] [address] [place] [address] Dr. Ara JungC4.81 106/ulNormal4.20-5.40The [facility] HospitalComment on above:Performed By: #### CBC #### [facility] [address] [place] [address] Dr. Ara StewartBC11.1 103/ulCritically high4.0-11.0The [facility] HospitalComment on above:Performed By: #### CBC #### [facility] [address] [place] [address] Dr. Ara Jacobs 14(COMP METB)on 02-72-5647Ccrhrik [Mass/Vol]3.8 g/dLNormal 3.4-5.0The [facility] HospitalComment on above:Performed By: #### HSTROPN, CMP #### [facility] [address] [place] [address] Dr. Ara AnneAlbumin/Globulin [Mass ratio]1.0 {ratio}NormalThe [facility] HospitalComment on above:Performed By: #### HSTROPN, CMP #### [facility] [address] [place] [address] Dr. Ara OviedoP [Catalytic activity/Vol]79 U/MSdssrz56-380Ety [facility] HospitalComment on above:Performed By: #### HSTROPN, CMP #### [facility] [address] [place] [address] Dr. Ara OviedoT [Catalytic activity/Vol]15 U/UXogrkc15-92Ksk [facility] HospitalComment on above:Performed By: #### HSTROPN, CMP #### [facility] [address] [place] [address] Dr. Ara Larsen gap [Moles/Vol]7.2 mmol/LNormalThe [facility] HospitalComment on above:Performed By: #### HSTROPN, CMP #### [facility] [address] [place] [address] Dr. Ara AnneAST [Catalytic activity/Vol]16 U/NMpycfc28-34Gqu [facility] HospitalComment on above:Performed By: #### HSTROPN, CMP #### [facility] [address] [place] [address] Dr. Ara AnneBilirubin [Mass/Vol]0.2 mg/dLNormal0.2-1.0The [facility] Comment on above:Performed By: #### HSTROPN, CMP #### [facility] [address] [address] [address] Ara AnneCalcium [Mass/Vol]9.3 mg/dLNormal8.5-10.1The [facility] Comment on above:Performed By: #### HSTROPN, CMP #### [facility] [address] [address] [address] Ara AnneChloride [Moles/Vol]103 mmol/BVsxqcu73-650Fzc [facility] Comment on above:Performed By: #### HSTROPN, CMP #### [facility] [address] [address] [address] Ara AnneCO2 [Moles/Vol]29.3 mmol/PFmjhzi83.0-32.0The [facility] Comment on above:Performed By: #### HSTROPN, CMP #### [facility] [address] [address] [address] Ara AnneCreatinine [Mass/Vol]0.92 mg/dLNormal0.55-1.02The [facility] HospitalComment on above:Performed By: #### HSTROPN, CMP #### [facility] [address] [address] [address] Ara LeesGFR-AF WALLISIAN>60Normal>=60The [facility] HospitalComment on above:Performed By: #### HSTROPN, CMP #### [facility] [address] [address] [address] Ara LeesGFR-NON AF WALLISIAN>60Normal>=60The [facility] HospitalComment on above:Performed By: #### HSTROPN, CMP #### [facility] [address] [address] [address] Ara AnneGlobulin (S) [Mass/Vol]3.7 g/dLNormalThe [facility] HospitalComment on above:Performed By: #### HSTROPN, CMP #### [facility] [address] [address] [address] Ara AnneGlucose [Mass/Vol]111 mg/dLCritically fbsk19-754Eno [facility] HospitalComment on above:Performed By: #### HSTROPN, CMP #### [facility] [address] [place] [address] Dr. Ara AnnePotassium [Moles/Vol]3.5 mmol/LNormal3.5-5.1The [facility] Comment on above:Performed By: #### HSTROPN, CMP #### [facility] [address] [place] [address] Dr. Ara AnneProtein [Mass/Vol]7.5 g/dLNormal6.4-8.2[facility] Comment on above:Performed By: #### HSTROPN, CMP #### [facility] [address] [place] [address] Dr. Ara AnneSodium [Moles/Vol]136 mmol/EKyxfhl980-349Hev [facility] Comment on above:Performed By: #### HSTROPN, CMP #### [facility] [address] [place] [address] Dr. Ara AnneUrea nitrogen [Mass/Vol]17.0 mg/dLNormal7.0-18.0The [facility] HospitalComment on above:Performed By: #### HSTROPN, CMP #### [facility] [address] [place] [address] Dr. Ara AnneUrea nitrogen/Creatinine [Mass ratio]18.5 mg/mgNormalThe [facility] HospitalComment on above:Performed By: #### HSTROPN, CMP #### [facility] [address] [place] [address] Dr. Ara Cardenas, HIGH SENSITIVITYon 97-12-4738FATHFS0.8 pg/mLNormal 4.0-51.3The [facility] HospitalComascension genesys hospital on above:Result Comment: CUT-OFF POINTS HAVE BEEN ESTABLISHED BASED ON THE FOURTH UNIVERSAL DEFINITIONS OF MYOCARDIAL INFARCTION. THE UPPER REFERENCE LIMIT (URL) OF TROPONIN, DEFINED THE 99TH PERCENTILE OF cTnI DISTRIBUTION IN A REFERENCE POPULATION, HAS BEEN CONFIRMED THE DECISION THRESHOLD FOR ME DIAGNOSIS.Performed By: #### HSTROPN, CMP #### [facility] [address] [place] [address] Dr. Ara AnneXR CHEST 1 Von 05-57-1829CL CHEST 1 VEXAMINATION: XR CHEST 1 V HISTORY: Asthenia COMPARISON: 04/27/2022 TECHNIQUE: [...] Electronically authenticated by: ANGEL CHRISTIAN Date: 2022-05-05 20:56NormalThCenterville AUTO DIFFon 52-14-3903OVWS #0.1 103/ulNormal0.0-0.1[facility] HospitalComment on above:Performed By: #### CBC #### [facility] [address] [place] [address] Dr. Ara AnneBasophils/100 WBC (Bld)0.5 %Normal0.2-2.0[facility] Comment on above:Performed By: #### CBC #### [facility] [address] [place] [address] Dr. Ara Victoria #0.2 103/ulNormal0.0-0.7The [facility] HospitalComment on above: Performed By: #### CBC #### [facility] [address] [place] [address] Dr. Ara Leesosinophils/100 WBC (Bld)1.7 %Normal0.9-7.0[facility] Comment on above:Performed By: #### CBC #### [facility] [address] [place] [address] Dr. Ara Leesrythrocyte distribution width (RBC) [Ratio]11.9 %Cdhmij21.0-15.0 The [facility] HospitalComment on above:Performed By: #### CBC #### [facility] [address] [place] [address] Dr. Yilan ChangHematocrit (Bld) [Volume fraction]44.3 %Gewwgn63.0-48.0The [facility] HospitalComment on above:Performed By: #### CBC #### [facility] [address] [place] [address] Dr. Ara AnneHemoglobin (Bld) [Mass/Vol]15.1 g/fHNgolye55.0-16.0The [facility] HospitalComment on above:Performed By: #### CBC #### [facility] [address] [place] [address] Dr. Ara AnneIG #0.04 10e3/ulCritically high0.00-0.03The [facility] Comment on above:Performed By: #### CBC #### [facility] [address] [place] [address] Dr. Ara Gomez %0.3 %Normal0.0-0.5The [facility] HospitalComment on above: Performed By: #### CBC #### [facility] [address] [place] [address] Dr. Ara Moscoso #3.0 103/ulNormal1.2-3.8The [facility] HospitalComment on above:Performed By: #### CBC #### [facility] [address] [place] [address] Dr. Ara Curriemphocytes/100 WBC (Bld)24.9 %Xwsmsq30.5-60.0The [facility] HospitalComment on above:Performed By: #### CBC #### [facility] [address] [place] [address] Dr. Ara AnneMANUAL DIFF REQNONormalThe [facility] HospitalComment on above: Performed By: #### CBC #### [facility] [address] [place] [address] Dr. Ara Perez (RBC) [Entitic mass]31.9 vxYqdctq15.7-34.0The [facility] HospitalComment on above:Performed By: #### CBC #### [facility] [address] [place] [address] Dr. Ara Maldonado (RBC) [Mass/Vol]34.1 g/jZFlxbyq55.9-35.2The [facility] HospitalComment on above:Performed By: #### CBC #### [facility] [address] [address] [address] Ara Maldonado (RBC) [Entitic vol]93.5 qXYzylss80.0-99.0The [facility] HospitalComment on above:Performed By: #### CBC #### [facility] [address] [place] [address] Dr. Ara Redd #1.6 103/ulCritically high0.3-0.8The [facility] Comment on above:Performed By: #### CBC #### [facility] [address] [place] [address] Dr. Ara Morganocytes/100 WBC (Bld)13.0 %Critically high1.7-12.0The [facility] HospitalComment on above:Performed By: #### CBC #### [facility] [address] [place] [address] Dr. Ara Walker #7.2 103/ulCritically high1.4-6.5ThJoint [facility] Comment on above:Performed By: #### CBC #### [facility] [address] [place] [address] Dr. Ara Mistryutrophils/100 WBC (Bld)59.6 %Mblxlj18.0-75.0The [facility] HospitalComment on above:Performed By: #### CBC #### [facility] [address] [place] [address] Dr. Ara Canolet mean volume (Bld) [Entitic vol]10.2 fLNormal9.5-13.5The [facility] HospitalComment on above:Performed By: #### CBC #### [facility] [address] [place] [address] Dr. Ara PlunkettT221 103/liImcvgm304-842Hyv [facility] HospitalComment on above: Performed By: #### CBC #### [facility] [address] [address] [address] Ara AnneRBC4.74 106/ulNormal4.20-5.40The [facility] HospitalComment on above:Performed By: #### CBC #### [facility] [address] [place] [address] Dr. Ara AnneWBC12.0 103/ulCritically high4.0-11.0The [facility] HospitalComment on above:Performed By: #### CBC #### [facility] [address] [place] [address] Dr. Ara AnnePROF 14(COMP METB)on 20-06-9936Edjcqhf [Mass/Vol]3.9 g/dLNormal 3.4-5.0The [facility] HospitalComment on above:Performed By: #### INSULIN #### [facility] [address] [place] [address] Dr. Ara AnneAlbumin/Globulin [Mass ratio]1.1 {ratio}NormalThe [facility] HospitalComment on above:Performed By: #### INSULIN #### [facility] [address] [place] [address] Dr. Ara Kumar [Catalytic activity/Vol]85 U/VAjfqpj43-048Zul [facility] Hospitalment on above:Performed By: #### INSULIN #### [facility] [address] [place] [address] Dr. Ara Lopez [Catalytic activity/Vol]31 U/MFcnkqz95-74Rda [facility] HospitalComment on above:Performed By: #### INSULIN #### [facility] [address] [place] [address] Dr. Ara Larsen gap [Moles/Vol]14.8 mmol/LNormalThe [facility] on above:Performed By: #### INSULIN #### [facility] [address] [place] [address] Dr. Ara Valdez [Catalytic activity/Vol]24 U/PYhvhmb30-52Bml [facility] Hospitalment on above:Performed By: #### INSULIN #### [facility] [address] [place] [address] Dr. Ara AnneBilirubin [Mass/Vol]0.2 mg/dLNormal0.2-1.0The [facility] Comment on above:Performed By: #### INSULIN #### [facility] [address] [address] [address] Ara AnneCalcium [Mass/Vol]8.7 mg/dLNormal8.5-10.1The [facility] Comment on above:Performed By: #### INSULIN #### [facility] [address] [address] [address] Ara AnneChloride [Moles/Vol]100 mmol/KTkfymf93-482Qkf [facility] Comment on above:Performed By: #### INSULIN #### [facility] [address] [place] [address] Dr. Ara AnneCO2 [Moles/Vol]25.8 mmol/EYzphuf09.0-32.0The [facility] Comment on above:Performed By: #### INSULIN #### [facility] [address] [address] [address] Ara AnneCreatinine [Mass/Vol]0.93 mg/dLNormal0.55-1.02The [facility] HospitalComment on above:Performed By: #### INSULIN #### [facility] [address] [place] [address] Dr. Ara LeesGFR-AF WALLISIAN>60Normal>=60The [facility] HospitalComment on above:Performed By: #### INSULIN #### [facility] [address] [address] [address] Ara LeesGFR-NON AF WALLISIAN>60Normal>=60The [facility] HospitalComment on above:Performed By: #### INSULIN #### [facility] [address] [address] [address] Ara AnneGlobulin (S) [Mass/Vol]3.6 g/dLNormalThe [facility] HospitalComment on above:Performed By: #### INSULIN #### [facility] [address] [address] [address] Ara AnneGlucose [Mass/Vol]129 mg/dLCritically tbwp79-756Zxp [facility] HospitalComment on above:Performed By: #### INSULIN #### [facility] [address] [address] [address] Ara AnnePotassium [Moles/Vol]3.6 mmol/LNormal3.5-5.1The [facility] Comment on above:Performed By: #### INSULIN #### [facility] [address] [address] [address] Ara AnneProtein [Mass/Vol]7.5 g/dLNormal6.4-8.2The [facility] Comment on above:Performed By: #### INSULIN #### [facility] [address] [place] [address] Dr. Ara AnneSodium [Moles/Vol]137 mmol/HRblzxd408-012Roj [facility] Comment on above:Performed By: #### INSULIN #### [facility] [address] [address] [address] Ara AnneUrea nitrogen [Mass/Vol]15.0 mg/dLNormal7.0-18.0The [facility] HospitalComment on above:Performed By: #### INSULIN #### [facility] [address] [place] [address] Dr. Ara Brian nitrogen/Creatinine [Mass ratio]16.1 mg/mgNoSelect Medical Specialty Hospital - Columbus SouthComment on above:Performed By: #### INSULIN #### [facility] [address] [place] [address] Dr. Ara AnnePROTIMEon 96-60-8482FKQ Coag (PPP) [Relative time]0.95 {INR} NormalSelect Medical [facility]health Rehabilitation HospitalComment on above:Performed By: #### PT, PTT #### [facility] [address] [place] [address] Dr. Ara Espinosa GUIDELINESSEE BELOWMercy Health Kings Mills HospitalComment on above:Result Comment: DESIRED INR: 2.0 - 3.0 CONDITIONS NOT LISTED BELOW 2.5 - 3.5 FOR PROSTHETIC HEART VALVE REPLACEMENT 2.5 - 3.5 RECURRENT THROMBOSIS Performed By: #### PT, PTT #### [facility] [address] [place] [address] Dr. Ara Buchanan Coag (PPP) [Time]10.3 sNormal9.0-11.6The [facility] Comment on above:Performed By: #### PT, PTT #### [facility] [address] [place] [address] Dr. Ara Becerra 84-19-5735wGRM Coag (Bld) [Time]28.1 oZarmkq51.3-36.2The [facility] HospitalComment on above:Performed By: #### PT, PTT #### [facility] [address] [place] [address] Dr. Ara Cardenas, HIGH SENSITIVITYon 72-88-1272OGPKAM91.5 pg/mLNormal 4.0-51.3The [facility] HospitalComment on above:Result Comment: CUT-OFF POINTS HAVE BEEN ESTABLISHED BASED ON THE FOURTH UNIVERSAL DEFINITIONS OF MYOCARDIAL INFARCTION. THE UPPER REFERENCE LIMIT (URL) OF TROPONIN, DEFINED THE 99TH PERCENTILE OF cTnI DISTRIBUTION IN A REFERENCE POPULATION, HAS BEEN CONFIRMED THE DECISION THRESHOLD FOR ME DIAGNOSIS.Performed By: #### INSULIN #### [facility] [address] [place] [address] Dr. Ara Vaughn 33-17-0254EDM1.689 uIU/mLNormal0.358-3.740The [facility] HospitalComment on above:Performed By: #### INSULIN #### [facility] [address] [place] [address] Dr. Ara AnneXR CHEST 1 Von 23-01-0954XG CHEST 1 VEXAMINATION: XR CHEST 1 V HISTORY: Chest pain COMPARISON: None. TECHNIQUE: Portable chest FINDINGS: The lung parenchyma is free of consolidation or infiltrate. No pneumothorax or pleural effusion. The cardiac, mediastinal and hilar contours are normal. Dextrocurvature of the thoracic spine. The visualized osseous structures exhibit no acute abnormality. IMPRESSION: No acute cardiopulmonary abnormality. Electronically authenticated by: ANGEL FITCH Date: 2022-04-27 16:19NormalThe Jesus HospitalSCREENING MAMMOGRAM W/MAUREEN, BILATERAL*on [id number] MAMMOGRAM W/MAUREEN, BILATERAL*CLINICAL HISTORY: Screening Mammogram COMPARISON: Priors from 2020, [...] VERY IMPORTANT TO YOUR HEALTH. THE CURRENT [place] [employer] GUIDELINES RECOMMENDS ANNUAL MAMMOGRAPHY BEGINNING AT AGE 39 THIS FACILITY USES A REMINDER SYSTEM TO ENSURE ALL PATIENTS RECEIVE REMINDER NOTIFICATIONS AT THE APPROPRIATE TIME BASED ON THE RECOMMENDATIONS OF THIS EXAM. Board Certified Radiologist. Accredited by the ACR and FDA. Report reported and signed by Kevin Carlos on 07/20/2021 1243NoalKern [facility] Vital Signs Date TimeVital SignValuePerforming HapeyigspUntoxadf39-58-6579 09:16-0400Body aqqfer288.6 cmFredric Itzkowitz DO Work Phone: noMercy Hospital St. LouisVjqbrqnljb19-13-5865 09:16-0400Body mass index (BMI) [Ratio]23.4 kg/x6Eagsyvg Itzkowitz DO Work Phone: [facility] SystemVmtwkdfxuv23-02-6813 09:16-0400Body anujit67.77 kgFredric Itzkowitz DO Work Phone: [facility] SystemYozirnnuty91-91-0792 14:22-0400Body eobeev371.6 cmBenjamin Murcek DO Work Phone: [facility] SystemDyronoxjjp42-30-1384 14:22-0400Body mass index (BMI) [Ratio]23.4 kg/r1Kxlolmds Murcek DO Work Phone: [facility] SystemQhfzcbtkmp36-12-7003 14:22-0400Body fkafmw19.77 kgBenjamin Murcek DO Work Phone: [facility] SystemCgeqqqwmcs46-03-1948 12:57-0400Body mqowaz925.6 cmBenjamin Murcek DO Work Phone: 1(200)[address]09-29-2025 12:57-0400Body mass index (BMI) [Ratio]23.4 kg/e0Vqpxawbb Murcek DO Work Phone: 1(553)[facility] SystemVqzmswpqvm11-10-7600 12:57-0400Body megxkf40.77 kgBenjamin Murcek DO Work Phone: 1(693)[address] [place], [place] 9202809-24-2025 15:17-0400Body pocmpx076.6 cmBenjamin Murcek DO Work Phone: 1(776)[address] [place], [place] 9202809-24-2025 15:17-0400Body mass index (BMI) [Ratio]23.4 kg/h1Wdvffdru Murcek DO Work Phone: 1(048)[facility] [place], [place] [address]Ghjpxzobsv75-91-1940 15:17-0400Body apnxxl65.77 kgBenjamin Murcek DO Work Phone: 1(196)[address] [place], [place] 9202809-09-2025 13:41-0400Body hagolx986.64 cmStephen Daigle MD Work Phone: [phone] [place] [employer], [place] 3684909-09-2025 13:41-0400 Body mass index (BMI) [Ratio]23.3 kg/z8GxakdmnStephen Daigle MD Work Phone: [phone])[address]09-09-2025 13:41-0400 Body lhfyjxbxmxk99.6 [degF]Stephen Daigle MD Work Phone: 1(906)698-[address] [place] [employer], [place] 3684909-09-2025 13:41-0400 Body fecmzb28.45 kgStephen Daigle MD Work Phone: 1(115)739-[address] [employer], [place] 3684909-09-2025 13:41-0400 Diastolic blood irhgmvvm10 mm[Hg]Stephen Daigle MD Work Phone: 1(312)797-[address] [employer], [place] 3684909-09-2025 13:41-0400 Heart rate79 /Asa Daigle MD Work Phone: 1(419)[address]09-09-2025 13:41-0400 Respiratory rate16 /Asa Daigle MD Work Phone: 1(819)[address]09-09-2025 13:41-0400 SaO2% (BldA) [Mass fraction]96 %Stephen Daigle MD Work Phone: 1(419)[address]09-09-2025 13:41-0400 Systolic blood boqernix606 mm[Hg]Stephen Daigle MD Work Phone: 1(419)[address] [place], [place] 3154408-28-2025 10:01-0400 Body etvpng829.64 cmStephen Daigle MD Work Phone: 1(332)[address] [place], [place] 3154408-28-2025 10:01-0400 Body mass index (BMI) [Ratio]23.1 kg/m9NrpagchStephen Daigle MD Work Phone: 1(419)[address] [place], [place] 3154408-28-2025 10:01-0400 Body .86 kgStephen Daigle MD Work Phone: 1(419)[address] [place], [place] 3154408-28-2025 10:01-0400 Diastolic blood hdqaqbgc82 mm[Hg]Stephen Daigle MD Work Phone: 1(508)[address] [place], [place] 3154408-28-2025 10:01-0400 Heart rate69 /Asa Daigle MD Work Phone: 1(419)[address] [place], [place] 3154408-28-2025 10:01-0400 Respiratory rate20 /Asa Daigle MD Work Phone: 1(419)[address] [place], [place] 3154408-28-2025 10:01-0400 SaO2% (BldA) [Mass fraction]98 %Stephen Daigle MD Work Phone: 1(164)[address]08-28-2025 10:01-0400 Systolic blood qkenthkb572 mm[Hg]Stephen Daigle MD Work Phone: 1(419)[address]08-07-2025 10:02-0400 Body jrtmez567.6 cmFreduniversity of louisville hospital Alan LYLE Work Phone: [facility] SystemAluzoykyvz88-26-8768 10:02-0400Body mass index (BMI) [Ratio]23.4 kg/x8Tsvlcpe Itzkowitz DO Work Phone: [facility] SystemVuhjplfxcd29-96-8796 10:02-0400Body meimbu75.77 kgFredric Itzkowitz DO Work Phone: [facility] SystemRxyixpicse39-27-8517 15:11-0400Diastolic blood alxzomnp35 mm[Hg]Stephen Daigle MD Work Phone: 1(996)561-[address] [place] [employer], [place] 3684907-29-2025 15:11-0400 Heart rate73 /Asa Daigle MD Work Phone: 1(446)293-[address] [employer], [place] 3684907-29-2025 15:11-0400 Respiratory rate16 /Asa Daigle MD Work Phone: 1(099)[address]07-29-2025 15:11-0400 SaO2% (BldA) [Mass fraction]94 %Stephen Daigle MD Work Phone: 1(679)173-[address] [place] [employer], [place] 3684907-29-2025 15:11-0400 Systolic blood saagawrv53 mm[Hg]Stephen Daigle MD Work Phone: 1(885)[facility]-[address] [employer], [place] 3684907-29-2025 13:56-0400 Inhaled oxygen flow rate2 L/Asa Daigle MD Work Phone: [phone] [employer], [place] 3684907-29-2025 13:20-0400 Body jqywpstldhg57.1 [degF]Stephen Daigle MD Work Phone: [facility]07-29-2025 08:30-0400 Body eeopsw277.64 cmStephen Daigle MD Work Phone: 1(025)[address]07-29-2025 08:30-0400 Body hyuqgg88 kgStephen Daigle MD Work Phone: 1(968)[address]07-10-2025 12:48-0400 Body uizbsa211.64 cmStephen Daigle MD Work Phone: [phone]07-10-2025 12:48-0400 Body .77 kgDojose Daigle MD Work Phone: 1(724)230-[address] [place] [employer], [place] 3684906-25-2025 13:23-0400 Body efpihr324.6 cmFredric Itzkowitz DO Work Phone: [facility] SystemAqtjbhlsza31-82-0103 13:23-0400Body mass index (BMI) [Ratio]23.4 kg/m7Rqcfccm Itzkowitz DO Work Phone: [facility] SystemDirwaottwc53-55-4239 13:23-0400Body ahmoxk33.77 kgFredric Itzkowitz DO Work Phone: [facility] SystemGuemvthedz94-69-8448 13:10-0400Body temperature 97.8 [degF]Stephen Daigle MD Work Phone: [phone]06-18-2025 13:10-0400 Diastolic blood mm[Hg]Stephen Daigle MD Work Phone: [phone]06-18-2025 13:10-0400 Heart rate90 /Asa Daigle MD Work Phone: 1(156)[address]06-18-2025 13:10-0400 Respiratory rate18 /Asa Daigle MD Work Phone: [phone]06-18-2025 13:10-0400 SaO2% (BldA) [Mass fraction]99 %Stephen Daigle MD Work Phone: [facility]06-18-2025 13:10-0400 Systolic blood biweeowa316 mm[Hg]Stephen Daigle MD Work Phone: [phone] [place] [address] Encounters Encounter DateEncounter TypeCare ProviderFacilityStart: 04-21-2025 End: 33-71-6436Jjwbyz outpatient visit 25 minutesFredric H Itzkowitz DO Work Phone: [facility] Surgical AssociatesComment on above:Malignant neoplasm of right breast in female, estrogen receptor positive, unspecified site of breast (HCC) (Primary Dx)Start: 04-21-2025 End: 41-17-8531qilefcuoruTARSGNY Isra Cooney AvailableStart: 04-11-2025 End: 75-30-7141Dkkwwk outpatient visit 15 minutesBenjamin W Murcek DO Work Phone: noms [facility] OtolaryngologyComment on above:Thyroid nodule (Primary Dx)Start: 04-11-2025 End: 73-63-5397dacqzvwvleXCNRNZFI W MURCEKNot AvailableStart: 04-11-2025 End: 81-89-5783Agzhet flowsheetBenjamin W Murcek DO Work Phone: NOD[facility] OtolaryngologyStart: 04-11-2025 End: 17-86-2118Ctqbws flowsheetBenjamin W Murcek DO Work Phone: [facility] [place] OtolaryngologyStart: 04-06-2025 ambulatoryNorleena R PoynterFacility:[facility] Hospitaltart: 03-21-2025 End: 79-12-6319Bxtanu flowsheetBenjamin W Murcek DO Work Phone: [facility] [place] OtolaryngologyStart: 03-21-2025 End: 00-55-8901Rwzqbr flowsheetBenjamin W Murcek DO Work Phone: NO[facility] [place] OtolaryngologyStart: 03-21-2025 End: 19-84-5834Cjnqkzoj ReferredBenjamin W Murcek DO-Lab [facility] [place] Work Phone: Start: 03-21-2025 End: 15-76-2027Dqvhcz outpatient visit 25 minutesBenjamin W Murcek DO Work Phone: [facility] [place] OtolaryngologyComment on above:Thyroid nodule (Primary Dx)Start: 03-21-2025 End: 40-08-5962pyxmwwfqarXvvhqcs M Hoy MD Work Phone: [facility] Work Phone: Start: 82-88-6029Bqbefiuzlr RecurringLove Castro MDUnion [facility] Work Phone: Start: 35-18-2871Gth-patient / Non-visitLove Castro MDUnion County General Hospital Ambulatory Work Phone: Start: 03-16-2025 End: 92-71-0138Pwvvic outpatient new 45 minutesBenjamin W Murcek DO Work Phone: NOM[facility] OtolaryngologyComment on above:Multiple thyroid nodules (Primary Dx)Start: 03-16-2025 End: 92-70-2665momtijioqvIPLTLAUO W MURCEKNot AvailableStart: 06-73-0912Ais- patient / Non-visitLove Castro MDUnion [facility] Hospital Ambulatory Work Phone: Start: 00-31-2586Gqnflisnxf RecurringMhd Vane Olvera MDUnion [facility] Acute Work Phone: Start: 03-01-2025 End: 69-00-0912cuovqbqpobSakcico M Hoy MD Work Phone: [facility] Work Phone: Start: 03-01-2025 End: 16-59-4709Aedzqxu encounter procedureLove Castro MDUnion [facility] General Hospital Ambulatory Work Phone: Start: 02-18-2025 End: 03-08-3887Vmutmj follow up visit related to original pxAlicja Phillips DO Work Phone: NOKB Surgical AssociatesComment on above:Malignant neoplasm of right breast in female, estrogen receptor positive, unspecified site of breast (HCC) (Primary Dx)Start: 02-18-2025 End: 35-88-7080edfbujnxboJDCAYUH Isra Cooney AvailableStart: 02-17-2025 Registered RecurringRosemary Regalado MD-[facility] Acute Work Phone: Start: 02-17-2025 End: 28-40-8788qtycvwikofNztjxhy M Hoy MD Work Phone: [facility] Work Phone: Start: 02-17-2025 End: 23-46-7070Mnlwhct encounter procedurekrystal Regalado MD-[facility] Ambulatory Work Phone: Start: 01-27-2025 End: 66-19-6895Cuuxjj follow up visit related to original pxFredric Isra Itjere DO Work Phone: n[facility] Surgical AssociatesComment on above:Malignant neoplasm of right breast in female, estrogen receptor positive, unspecified site of breast (HCC) (Primary Dx)Start: 01-27-2025 End: 87-88-0837ontlczeavdZIEXEYL Isra ITGREGORIOVAUGHNNot AvailableStart: 01-18-2025 End: 68-09-9298Vrzofxrra to same day surgery centerFredric Alan DO-[facility] CampusStart: 01-18-2025 End: 32-70-2477kxxbmredyxHidxwxe M Hoy MD Work Phone: [facility] Work Phone: Start: 01-07-2025 End: 49-20-6537Lmimhwd encounter procedureFredric Itallisonrohit QK-Rux-Cihlmvhp Testing Work Phone: Start: 01-07-2025 End: 57-03-9652xxtitkhqgtDrnbamb M Hoy MD Work Phone: [facility] Work Phone: Start: 01-06-2025 End: 74-04-5123Wwqtyy outpatient visit 40 minutesFredric Isra Itzlisawitz DO Work Phone: noms ST GENSComment on above:Malignant neoplasm of right breast in female, estrogen receptor positive, unspecified site of breast (HCC) (Primary Dx)Start: 01-06-2025 End: 68-13-2826cptddruxbhIXRSWIP H ITZKOWITZNot AvailableStart: 12-31-2024 End: 77-28-1493Xkmrzqd encounter procedureFredric Itzkowitz DO-MRI [facility] [place] Work Phone: Start: 12-31-2024 End: 32-72-2293lzjbbtxlgiVwvpglh M Hoy MD Work Phone: [facility] Work Phone: Start: 12-31-2024 End: 57-74-0088Tejnmqkb Result EncounterFredric H Itzkowitz DO Work Phone: noms External Department UnsolicitedStart: 12-31-2024 End: 96-64-3828Ahpwvayw Result EncounterFredric H Itzkowitz DO Work Phone: noms External Department UnsolicitedStart: 12-25-2024 End: 65-66-4874ktbcyotkvmYjydhsr M Hoy MD Work Phone: [facility] Work Phone: Start: 12-25-2024 End: 98-15-2083Nhqhwtzj ReferredDadayanna Hopkins MD-[facility] Start: 12-15-2024 End: 37-29-0709Uooymq outpatient visit 40 minutesFredric H Itzkowitz DO Work Phone: noms ST GENSComment on above:Malignant neoplasm of right breast in female, estrogen receptor positive, unspecified site of breast (HCC) (Primary Dx)Start: 12-15-2024 End: 11-79-8562ajdwfhzbvgGZFSMDH H ITZKOWITZNot AvailableStart: 12-08-2024 End: 04-26-8589Kdzpcwovy to same day surgery centerStephen Kendrick MD-[facility] Cntr for Breast CarStart: 12-08-2024 End: 08-98-0220sjxxasvewjVodrtcx M HoyFacility:[facility] Start: 12-02-2024 End: 23-94-4159aidjzwmztuJgzqups M HoyFacility:[facility] Start: 12-02-2024 End: 41-11-1655Bszxbqg encounter procedureFrkecia Phillips DO-[facility] Work Phone: Start: 11-25-2024 End: 79-53-2690fpiydcgperMYLMZAK M HOYNot AvailableStart: 11-18-2024 End: 02-04-8475oledmmasarWNUPVOV M HOYNot AvailableStart: 10-13-2024 End: 10-12-8034yqgzmtlynnJiyop T ParkerChillicothe [facility] Work Phone: Start: 10-13-2024 End: 97-00-4820Vqkojeeg ReferredAmalia Hopkins MD Work Phone: [facility]-LAB Path Spec [facility] HospStart: 46-84-5830Vgvwvwgjy for general adult medical examination without abnormal findingsDR STEPHEN HOYThe [facility] Hospitaltart: 06-03-2022 End: 27-78-7160bvrybfekbnRK STEPHEN HOYFacility:P9Hthfy: 06-03-2022 End: 29-09-7331Oenffbmew for general adult medical examination without abnormal findingsDR STEPHEN HOYFacility:D9Hiyzf: 05-07-2022 End: 52-98-0731fpkfznczsiNYRK [facility] Centertart: 05-05-2022 End: 59-18-9814bnpcgpkttvXT STEPHEN HOYFacility:E5Idvlv: 04-27-2022 End: 44-12-6497puvqnzkmjrMFFSVJ RODRIGUEZFacility:H1 Procedures DateProcedureProcedure DetailPerforming ClinicianStart: 03-16-2025 End: 03-16-2025H/O: hysterectomyStatus post hysterectomyBenjamin Murcek DO Work Phone: start: 41-19-4919Tfgu energy X-ray absorptiometry Stephen Daigle MD Work Phone: Start: 09-46-5870LD scan of thyroidStephen Daigle MD Work Phone: [phone]-art: 85-48-9166Ydblenxefbn of right breast specimen Stephen Daigle MD Work Phone: Start: 50-17-4190Fhivwlnqbd of right breastStephen Daigle MD Work Phone: Start: 34-27-1856Zdakhfahgjvn sentinel lymph node studyStephen Daigle MD Work Phone: Start: 35-15-9308Flfafvbstgh of right breastStephen Daigle MD Work Phone: [phone]: 35-52-9883Egdbjrqwmobpivg guided needle localization of lesion of right breastStephen Daigle MD Work Phone: Start: 93-87-2284OKPYF MASON Phillips DO Work Phone: Start: 08-22-4688QNA of bilateral breasts with contrastStephen Daigle MD Work Phone: Start: 54-95-7008Lizdp Felipa Daigle MD Work Phone: [phone]-art: 58-46-7679Qyjjnjajuoq of right breastStephen Daigle MD Work Phone: Start: 83-28-2057Eanxkxlhanvyesk guided biopsy of right breastStephen Daigle MD Work Phone: Start: 82-11-2478MW biopsy RT add lesion Silvino Daigle MD Work Phone: Start: 14-08-8626Dsxvy Felipa Daigle MD Work Phone: Plan of Treatment DateCare ActivityDetailAuthorStart: 10-11-2025 End: 65-82-8148Olssmax encounter /21/2026 10:15 AM EDT Office Visit [facility] [address] [place] [phone] Christoph Prakash, DO [address] [place] [address] [facility] OtolaryngologyStart: 04-21-2025 End: 44-21-1488Eofmyfi encounter mctxvswma61/30/2025 9:30 AM EDT Office Visit [facility] [address] [place] [address] [facility] [address] [place] [phone] Alicja Phillips, DO [address] [facility] [address] [place] [address] [facility] AssociatesStart: 04-11-2025 End: 20-55-6488Rsijkeb encounter procedureNOMS Hanna OtolaryngologyComment on above:ArrivedStart: 03-21-2025 End: 02-14-4942Xqpybgf encounter procedureNOMS Cyndi OtolaryngologyComment on above:ArrivedStart: 44-29-7838Lsanvgy referralGreene [facility] Work Phone: Start: 02-18-2025 End: 85-37-6196Jyvulih encounter olumjtzls77/29/2025 10:45 AM EDT Office Visit [facility] [address] [facility] [address] [place] [phone] Alicja Phillips, DO [address] [address] [facility] AssociatesStart: 02-17-2025 [facility] Work Phone: Start: 01-27-2025 End: 57-73-6596Hlmvwvg encounter tpzzlmufb94/07/2025 10:15 AM EDT [facility] [address] [facility] [address] [place] [phone] Alicja Phillips, DO [address] [facility] [address] [place] [address] [facility]ITALtart: 36-84-6136IjhzpslqqAvita Health System Ontario Hospitaltart: 76-00-2036SjvwjvmfpAvita Health System Ontario Hospitaltart: 01-06-2025 End: 76-20-6433Uacpzcb encounter auxnjbnrk38/17/2025 3:15 PM EDT Office Visit [facility] [address] [place] [address] [address] [place] [address] ScarlettMunir oquendodric H, DO [address] [facility] [address] [place] [address] [facility]ITALtart: 07-28-9081JR Breast - bilateral [facility] Hospitaltart: 42-35-2445IEQ of bilateral breasts with contrastMR breast BI wo/w con CADAvita Health System Ontario Hospitaltart: 12-29-2024 End: 17-90-3425Yljbzjv encounter tcszkkhla76/09/2025 1:15 PM EDT Office Visit [facility] [address] [place] [address] [address] [place] [address] Alicja Phillips H, DO [address] [facility] [address] [place] [address] [facility]ITALtart: 11-07-8023Jbuwqsde identified in Urine by CultureUrine CultureAvita Health System Ontario Hospitaltart: 12-25-2024 [facility]rine [facility]: 12-15-2024 End: 34-51-3299BD Breast - bilateral WO and W contrast IVBilateral breast MR with and without contrast Imaging Routine Malignant neoplasm of right breast in female, estrogen receptor positive, unspecified site of breast (HCC) Expected: 12/15/2024, Expires:02/14/2026[facility] Work Phone: Comment on above:Expected: 12/15/2024, Expires: 02/14/2026Start: 72-71-2613Rxaoppyv identified in Urine by CultureUrine Culture [facility] Hospitaltart: 61-21-1621Fpyid cultureOhiohealth Shelby HospitalComprehensive metabolic 2000 panel - Serum or Plasma [facility] HospitalCT with contrast for radiotherapy planning [facility] HospitalDXA Skeletal system.axial Views for bone densityOhiohealth Shelby HospitalPatient EducationChillicothe [facility]tr Work Phone: Patient referralChillicothe Va Medical Center [facility]tr Work Phone: [place] Thyroid glandOhiohealth Shelby Hospital Payers DatePayer CategoryPayerPolicy [id number]-pay2025MedicareMEDICARE [id number] [id number] [id number] 2.1.642604.3.57[id number] 2..1.307308.3.57[id number] 2..1.136158.3.57[id number] 2..1.797238.3.57[id number] 2..1.856107.3.57[id number] 2.16.840.1.987670.3.57[id number] 2..0.1.434103.3.57[id number] 2..0.1.793083.3.57[id number] 2.0.1.400006.3.57[id number] 2..1.626996.3.579.[id number] 2..1.453189.3.57[id number] 2..1.156812.3.579.[id number] 2..1.421248.3.579.2.035900-48-5050Jivdexo3177184 2..1.665521.3.579.2.538872-27-9079Jvywjrl Health Insurance 1..840.426218.1.13.693.2.7.9.217852.072156.98210-72-3185Xktcsyr Health [id number]-g973-2124oqrcl447DujapmqDxeptnhszur [id number]-[id number] 2..1.6[id number] 2..1.159500.3.579.2.531 [id number] 2.0.1.7[id number] 2.16.840.1.699136.3.579.2.756Fycrtui44373473 2.16.840.1.446893.3.579.2.531 [id number] 2.16.840.1.4421[id number] 2.16.840.1.8[id number] 2.16.840.1.459479.3.579.2.531 [id number] 2.16.840.1.954241.3.579.2.531 Social History DateTypeDetailFacilityTobacco smoking status NHISUnknown if ever smokedCincinnati Va Medical Center Work Phone: Start: 66-71-5477CjhMvrgye (finding)[facility] Hospitaltart: 25-89-4192Ixy Assigned At BirthFeLicking Memorial Hospitaltart: 12-15-2024 End: 76-09-0267Xwynsyn smoking status NHISNever smoked tobaccoNOMS Healthcare Start: 91-33-8881Wlmymmh use and exposureSmokeless tobacco non-userNOMS HealthcareStart: 12-15-2024 End: 00-10-2955Ajpxtbfhf beverage intakeCurrent drinker of alcohol (finding)[facility] HealthcareStart: 12-15-2024 End: 32-30-9394Pfsgaau of Social functionNOMS HealthcareStart: 12-15-2024 End: 44-38-8187Bmudlqn use panelNOMS HealthcareStart: 51-11-9589Krk assigned at birthNot on fileNOMS HealthcareStart: 07-17-8232UbcSdwuvvXSMM Healthcare Medical Equipment Procedure CodeEquipment CodeEquipment Original TextEquipment IdentifierDates Biopsy, breast, with lumpectomyRadiological image marker, implantable [id number] FDAStart: 01-18-2025 Goals DatePatient GoalDesired Activity/State Clinical Notes 05-07-2022 to 04-21-2025 Note Date & ThiuKqyuCdkknnob78-99-6504 History of Present illness Narrative* Alicja Isra Alan, DO - 04/21/2025 9:30 AM EDT Images from the original note were not included. Bianca Toledo 1960 Bianca Toledo is a 64 y.o. female presents with chief complaint of 3rd pom Rt. lumpectomy HPI: HPI Bianca is 3 mths post Rt. Lumpectomy. She completed the XRT on 04/06/25 and is doing well. She started the Letrozole SUBJECTIVE: MEDICATIONS: ALLERGIES Current Outpatient Medications Medication Instructions ALPRAZolam (XANAX) 0.25 mg, 3 times daily letrozole (FEMARA) 2.5 mg, Daily levothyroxine (SYNTHROID, LEVOXYL) 100 mcg, Daily lovastatin (Mevacor) 20 MG tablet metoprolol tartrate (Lopressor) 25 MG tablet Twice daily omeprazole (PriLOSEC) [address] capsule Daily Allergies[1] PAST MEDICAL HISTORY: SOCIAL HISTORY SURGICAL HISTORY: Medical History[2] Social History[3] Surgical History[4] FAMILY HISTORY Family History[5] REVIEW OF SYMPTOMS: Review of Systems Constitutional: Negative for diaphoresis and unexpected weight change. HENT: Negative for hearing loss, tinnitus and voice change. Respiratory: Negative for shortness of breath. Cardiovascular: Negative for chest pain and palpitations. Musculoskeletal: Positive for arthralgias and back pain. Neurological: Negative for dizziness, seizures and headaches. All other systems reviewed and are negative. Hematological: Negative for adenopathy. Does not bruise/bleed easily. OBJECTIVE: Visit Vitals Ht 5' 6 Wt 145 lb BMI 23.40 kg/m OB Status Hysterectomy Smoking Status Never BSA 1.75 m Physical Exam Vitals reviewed. Exam conducted with a preschool teacher assistant present. HENT: Head: Normocephalic. Eyes: Pupils: Pupils are equal, round, and reactive to light. Cardiovascular: Rate and Rhythm: Normal rate and regular rhythm. Pulmonary: Effort: Pulmonary effort is normal. Chest: Comments: Bilateral supraclavicular, infraclavicular, bicipital and axillary lymph nodes were foundto be normal. Each breast was examined in the sitting and supine position, there was no evidence ofmasses, dimpling or discharge in either breast. The right breast has minimal effects of XRT at thistime. Abdominal: General: Bowel sounds are normal. Palpations: Abdomen is soft. Musculoskeletal: General: Normal range of motion. Skin: General: Skin is warm. Neurological: General: No focal deficit present. Mental Status: She is alert. ASSESSMENT AND PLAN: Assessment/Plan Diagnoses and all orders for this visit: Malignant neoplasm of right breast in female, estrogen receptor positive, unspecified site of breast (HCC) Bianca completed her XRT on the and is doing well. She started the Letrozole. I'll see her ijn 3 mths for recheck. [1] Allergies Allergen Reactions Escitalopram Dizziness Metoprolol [2] Past Medical History: Diagnosis Date Anxiety 08/19/2007 Breast cancer (HCC) 11/2024 2 masses in right breast 8 & 2:00 position Breast mass, right 03/16/2025 Encounter for screening for osteoporosis 03/16/2025 Gastroesophageal reflux disease 03/16/2025 Genetic carrier status 12/2024 negative Goiter 03/16/2025 Hypercholesterolemia 03/16/2025 Hypertension 03/16/2025 Hypothyroidism 03/16/2025 Status post hysterectomy 03/16/2025 Thyroid disease [3] Social History Tobacco Use Smoking status: Never Smokeless tobacco: Never Substance Use Topics Alcohol use: Yes Drug use: Never [4] Past Surgical History: Procedure Laterality Date BI US GUIDED BREAST LOCALIZATION AND BIOPSY RIGHT Right 01/18/2025 BI US GUIDED BREAST LOCALIZATION AND BIOPSY RIGHT CARDIAC ELECTROPHYSIOLOGY STUDY AND ABLATION SECTION, CLASSIC HYSTERECTOMY [5] Family History Problem Relation Name Age of Onset Melanoma Mother Stroke Father Breast cancer Paternal Grandmother Colon cancer Neg Hx Ovarian cancer Neg Hx Pancreatic cancer Neg Hx documented in this encounterSaint Luke's Health SystemTsfnrxthbw84-43-9680 History of Present illness Narrative* Christoph Prakash DO - 04/11/2025 2:15 PM EDT HPI Patient of a left inferior thyroid nodule. This is [place] II, benign. I made the patient aware. presents todayFollowing FNA Relevant postoperative physical examination Unremarkable Assessment/plan Bianca was seen today for thyroid nodule. Diagnoses and all orders for this visit: Thyroid nodule (Primary) Comments: I have recommended repeating the ultrasound in my office in 6 months, I will see her back in 6 months documented in this encounterSaint Luke's Health SystemDtzbboorwx40-70-1678 History of Present illness Narrative* Christoph Prakash DO - 03/21/2025 1:00 PM EDT Subjective Patient ID: HPI Patient presents today for FNA of a left inferior thyroid nodule, informed consent was obtained. Review of Systems ROS The specialty specific review of systems is noncontributory except for that recorded in the intake questionnaire and /or described in the history of present illness. Objective ENT Physical Exam Physical Exam Constitutional: Appearance: Normal appearance. HENT: Head: Atraumatic. Ears: External ear shows no abnormality Bilateral ear canals are clear Tympanic membranes intact, no evidence of middle ear fluid or other pathology. Nose: External nose appears to be normal Nares patent. Septal deviation to the right No evidence of polyp, mass or pus bilaterally. Oral Cavity: No evidence of trismus Lips appear normal Dental good Tongue of normal size and configuration, floor of mouth mucosa clear. Buccal mucosa shows no evidence of ulceration, mass or other abnormality Hard palate soft palate mucosa intact with no evidence of mass, ulceration or other abnormality Uvula of normal size and configuration Oropharynx: Tonsils Posterior pharyngeal wall Neck: No evidence of palpable abnormality Thyroid without evidence of thyromegaly or mass. No cervical lymphadenopathy present. Cardiovascular: Rate and Rhythm: Normal rate and regular rhythm. . Skin: General: Skin is warm and dry. Neurological: General: No focal deficit present. Mental Status: alert and oriented to person, place, and time. ULTRASOUND GUIDED FNA Thyroid gland was palpated. The _ left inferior thyroid nodule be biopsied have been identified by ultrasound.The skin was cleaned with alcohol. The skin above the nodule was anesthetized withan injection of 1% xylocaine with epi. The patient was asked not to talk or swallow during the procedure. A fine gauge biopsy needle was inserted under US visualization and multiple passes were taken. Aspiration of thyroid nodule was performed and material was prepared for both slides and cell block. Three individual passes were made. The material looks like it is mostly colloid. Material was also obtained for potential molecular testing. Assessment/Plan Bianca was seen today for thyroid nodule. Diagnoses and all orders for this visit: Thyroid nodule (Primary) Comments: Patient tolerated the procedure without complication, I will see her back in 2 weeks to discuss pathology documented in this encounterSaint Luke's Health [id number] History of Present illness Narrative* Christoph Prakash DO - 03/16/2025 3:30 PM EDT Subjective Patient ID: HPI 64-year-old female referred for recently found left-sided thyroid nodule. Patient actually says shehas known she has had a nodule there for a while. Never been biopsied. She is recently diagnosed with breast cancer and is to begin radiation therapy tomorrow. Outside ultrasound reveals a 2.4 cm thyroid nodule on the left side with microcalcifications, 1.4 cm 1 as well. Patient has no personal risk factors for thyroid cancer. Review of Systems ROS The specialty specific review of systems is noncontributory except for that recorded in the intake questionnaire and /or described in the history of present illness. Objective ENT Physical Exam Physical Exam Constitutional: Appearance: Normal appearance. HENT: Head: Atraumatic. Ears: External ear shows no abnormality Bilateral ear canals are clear Tympanic membranes intact, no evidence of middle ear fluid or other pathology. Nose: External nose appears to be normal Nares patent. Septal deviation to the right No evidence of polyp, mass or pus bilaterally. Oral Cavity: No evidence of trismus Lips appear normal Dental good Tongue of normal size and configuration, floor of mouth mucosa clear. Buccal mucosa shows no evidence of ulceration, mass or other abnormality Hard palate soft palate mucosa intact with no evidence of mass, ulceration or other abnormality Uvula of normal size and configuration Oropharynx: Tonsils small Posterior pharyngeal wall normal Neck: No evidence of palpable abnormality Thyroid without evidence of thyromegaly or mass. No cervical lymphadenopathy present. Cardiovascular: Rate and Rhythm: Normal rate and regular rhythm. . Skin: General: Skin is warm and dry. Neurological: General: No focal deficit present. Mental Status: alert and oriented to person, place, and time. THYROID ULTRASOUND EXAMINATION Indication: Thyroid nodule After informed consent was obtained the patient was placed supine on the examining table. Patient was asked to extend the neck. Topical ultrasound jelly was used. The right lobe of the thyroid gland measures 4.9 cm in greatest dimension. Parenchyma is homogeneous, I do not see any nodules or masses. The isthmus is unremarkable. The left lobe of the thyroid gland measures __ 5.2 cm greatest dimension. There are 2 fairly well circumscribed hypoechoic nodules that make up most of the lobe, the inferior 1 measures 2.44 cmin greatest dimension with some internal vascularity and microcalcifications. The upper nodule measures 1.4 cm with no calcifications or internal vascularity. There is no adenopathy in the central compartment. There is no appreciable adenopathy in either lateral neck. Assessment/Plan Bianca was seen today for thyroid nodule. Diagnoses and all orders for this visit: Multiple thyroid nodules (Primary) Comments: I have recommended biopsy of the inferior dominant nodule with microcalcifications. Risks and benefits were discussed, consent was given. I will perform that sometime in the near future in the office. documented in this encounterSaint Luke's Health [id number] History of Present illness Narrative* Alicja Phillips DO - 02/18/2025 10:45 AM EDT Images from the original note were not included. Bianca Toledo is a 64 y.o. female presents for 4th pow Rt. lumpectomy HPI: HPI Bianca is 4 weeks post right lumpectomy. She saw Oncology yesterday and has an upcoming appointment with Rad Onc. OBJECTIVE: Physical Exam Chest: Comments: Right breast incision is healing well, no ecchymosis ASSESSMENT AND PLAN: Assessment/Plan Diagnoses and all orders for this visit: Malignant neoplasm of right breast in female, estrogen receptor positive, unspecified site of breast (HCC) She is doing well, I'll see her in 2 mths for recheck. The OncoDx results were low and he suggests hormonal tx and XRT. documented in this encounterSaint Luke's Health SystemEuxyrdwhea85-80-8063 Evaluation note* Diagnosis Onset Date Resolution Status Admit Date Breast cancer, right acuteAugust 2024 9:41amEncounter for screening for osteoporosisacuteAugust 2024 9:41amThyromegalyacuteAugust 2024 9:41amBreast cancer, right acuteSeptember 2024 1:03pm [facility] Work Phone: [phone]) 964-804408-28-2025 [facility]Pal[facility] [place] [address] Cancer Center Note Signed Patient: Bianca Toledo MR#: [id number] : 1960 Acct:[id number] Age/Sex: 64 / F Type: REG AMB Date of Service: 02/17/25 Copies to: MD Alicja Lopez DO~ Assessment & Plan A/P (1) Breast cancer, right: (2) Thyromegaly: (3) Encounter for screening for osteoporosis: Plan Tumor stage is m (multifocal) T1b N0 (0/1) Invasive lobular carcinoma UIQ and LOQ of right breast. Tumor board discussed her case on 02/11/2025 of her multifocal invasive carcinoma, mixed ductal and lobular, grade 2 with the 1 sample at 7-8 o'clock position being ER positive, DC positive, HER2 negative and the other sample from2-3 o'clock position being ER positive, DC negative and HER2 negative.Tumor board recommendation Tumor board recommendations are: Oncotype DX, endocrine therapy and whole breastradiation. Oncotype DX came back at 25. With distant recurrence at 9 years at 12% with endocrine therapy aloneand the absolute chemotherapy benefit is less than 1%. She also was seen by genetics [facility] testing came back negative. I discussed above findings with her and the recommendations of proceeding with adjuvant radiation followed by adjuvant endocrine therapy for 5-10 years. the chemo benefit is <1% based on age over 50 and Oncotype score of 25. PLAN: Thyroid US for her thyromegaly seen on exam. DEXA scan.LFTS now and 6 weeks after starting endocrine therapy. Refer to Rad Onc for adjuvant XRT of right breast. Start Femara one week after completing radiation therapy. RTC to me with LFTs 6-7 weeks after starting Femara. Orders: Orders Comprehensive Metabolic Panel 1 Day C50.911 - Malignant neoplasm of unspecifiedsite of right femalebreast XR dexa axial skeleton 1 Day C50.911 - Malignant neoplasm of unspecified site of right female breast, Z78.0 - Asymptomatic menopausal state US thyroid Today C50.911 - Malignant neoplasm of unspecified site of right female breast, E04.9 - Nontoxic goiter, unspecified Referrals Referral to Radiation Oncology C50.911 - Malignant neoplasm of unspecified site of right female breast Patient Instructions: refer to radiation oncology dexa scan soon cmp soon follow up 6 weeks after XRT complete with cmp send script for femara thyroid US CHEMO PLAN No Active Chemotherapy History of Present Illness JAQUELINE Valenzuela is a 64-year-old nice lady with history of thyroid disease who never smoked and does not drink alcohol and no prior malignancies and who had C- sections and hysterectomy was referred to our medical oncology office by Dr. Phillips for her new right breast cancer medical oncology management. She initially had abnormal mammogram 2:00 and 8:00 positions on the right breastconcerning for malignancy for which she was seen by Dr. Phillips and a biopsy done on 12/08/2024 revealed: A. Right breast, 8:00, 8 cm from nipple, ultrasound-guided core biopsy: ? Invasive breast carcinoma, grade 2, mixed ductal and lobular origin, see comment. ? The carcinoma involves 5 foci, the largest of which measured 2-3 mm on the slides. ? No DCIS or lymphovascular invasion are identified B. Right breast lesion: ? Invasive breast carcinoma, grade 2, mixed ductal and lobular origin, see comment. ? The carcinoma involves 4 of the cores and the largest focus of tumor measure 0.5 cm on the slides ? No DCIS or lymphovascular invasion are identified HER2 negative (2+ by IHC, 2 o'clock position and cannot be determined group 4 byFISH) therefore Sample A at 8 o'clock position ER +90 to 100% DC +50 to 60% Ki-67 is 25 to 35%. Sample will be at 2 o'clock position: ER +90 to 100% DC negative?6740 to 50%. As per ASCO 2018 considered negative tumors on sample A&B. The sample a from 8 o'clock positionthere are 2 is 0 on IHC. Sample B 2 o'clock position HER2 is 2+. Patient underwent bilateral breast MRI, and underwent genetic testing. [facility] genetic testing was negative. MRI on 12/31/2024 revealed the following: NO MRI EVIDENCE OF MALIGNANCY IS SEEN INVOLVING THE LEFT BREAST. PREVIOUSLY BIOPSIED MASS LIKE AREAS OF ENHANCEMENT ARE ONCE AGAIN NOTED AT THE 2:00 AND 8:00 POSITIONS OF THE RIGHT BREAST DESCRIBED ABOVE. NO ADDITIONAL AREAS OF SUSPICIOUS MASSLIKE OR NONMASS-LIKE ENHANCEMENT IS SEEN WITHIN THE RIGHT BREAST. FINDINGS ARE CONSISTENT WITH MULTICENTRIC DISEASE. NO MRI EVIDENCE OF CHEST WALL INVASION OR LOCAL METASTATIC DISEASE. She underwent right lumpectomy on 01/18/2025. Surgical pathology revealed: 1 sentinel lymph node negative for metastatic disease. Right breast at the 7 8 o'clock position 0.8 cm grade 2 invasive pleomorphic lobular carcinoma negative margins. Right breast 2-3 o'clock lesion is 0.7 cm invasive pleomorphic lobular carcinomamargins negative. Fibrocystic changes seen. Distance from the closest margin of the 8 o'clock position tumor is 1 mm medial margin. Distance from closest margin of the 2 o'clock position the tumor is 2 mm superior margin. Tumor stage is m (multifocal) T1b N0 (0/1)Invasive lobular carcinoma UIQ and LOQof right breast. Tumor board discussed her case on 02/11/2025 of her multifocal invasive carcinoma, mixed ductal and lobular, grade 2 with the 1 sample at 7-8 o'clock position being ER positive, DC positive, HER2 negative and the other sample from2-3 o'clock position being ER positive, DC negative and HER2 negative.Tumor board recommendation Tumor board recommendations are: Oncotype DX, endocrine therapy and whole breastradiation. Oncotype DX came back at 25. With distant recurrence at 9 years at 12% absolutechemotherapy benefitis less than 1%. She also was seen by genetics [employer] testing came back negative. Intake Vitals/Pain Assessment 02/17/25 10:01 Height 5 ft 6 in Weight 64.864 kg BMI 23.1 Body Fat % 37.32 BP 140/87 Blood Pressure Location Lt brachial Position Sitting Pulse 69 Pulse Source NIBP Respiration 20 Pulse Oximetry (%) 98 Oxygen Delivery Method room air Are you having pain? No Intake Visit Reasons: NEW-Mal Zulema right breast Allergies escitalopram (From Lexapro) Allergy (Verified 02/17/25 09:59) Dizziness Home Medications - Last Reconciled 02/17/25 by GRISEL Gibson alprazolam 0.25 mg PO TID PRN levothyroxine 100 mcg PO QAM lovastatin 20 mg PO QHS metoprolol tartrate 25 mg PO BID omeprazole 20 mg PO DAILY Gastrointestinal Is the patient taking opioids for pain control?: No Bowel Protocol for Opioids Given: No Bowel Pattern: Regular Bowel Movement Aid(s): None Falls Fall Precaution Measures Taken: Patient in chair Nurse's Note: Patient is referred by Dr Phillips for right breast cancer. Had lumpectomy on 01/18/2025. Tumor board from 02/11/25. [facility] History Attestation statement: The following information was validated with the patient. Medical History Medical History (Updated 02/17/25 @ 10:58 by Rosemary Regalado MD) Encounter for screening for osteoporosis Thyromegaly Anxiety Scoliosis Back pain GERD (gastroesophageal reflux disease) Hypothyroidism Supraventricular tachycardia Murmur Hypertension Breast cancer, right Surgical History Surgical History (Updated 02/17/25 @ 10:05 by GRISEL Gibson) Status post left breast lumpectomy History of section Hx of breast biopsy History of hysterectomy History of cardiac radiofrequency ablation for SVT Family History Family History (Updated 02/17/25 @ 10:07 by GRISEL Gibson) Father Stroke Heart disease Mother Melanoma Paternal Grandfather No problems noted. Paternal Grandmother Breast cancer Social History Social History (Updated 02/17/25 @ 10:07 by GRISEL Gibson) Smoking status: Never smoker Within the past year, how often did you have a drink containing alcohol: 2-4 times a month In the past 12 months, have you used illegal drugs or prescription drugs for non-medical reasons?: No Review of Systems ROS Details: All systems reviewed & no additional complaints except as documented General: Patient denied fevers, chills, rigors, weight loss or loss of appetite. Head: Patient denied any headaches or vision changes Thoracic: Patient denied any shortness of breath or cough or hemoptysis Cardiovascular patient denies any chest pain or leg edema GI: Patient denies any nausea vomiting rectal bleed diarrhea : Patient denied gross hematuria. Hematology: Patient denied any bleeding from any source. No easy bruising. Lymphatic: No enlarged LAP anywhere. Skin: Normal skin exam no rashes or suspicious lesions. Neurological patient denies any headache or dizziness or focal weakness or sensory changes. Physical Exam EXAM HEENT normocephalic atraumatic pupils are equal and round Neck supple but with mild thyromegaly but no cervical lymphadenopathy. Chest clear to auscultation bilaterally without wheezing crackles or rhonchi Heart regular rate and rhythm S1-S2 without murmurs gallop Right breast without any seroma or discharge and wounds are closed and healing. Abdomen soft nontender not distended without hepatosplenomegaly or masses clinically Extremities no edema of the lower extremities Skin without any suspicious rashes Lymphatic system no lymphadenopathy in the cervical area axillary areas or inguinal areas bilaterally Neurological exam patient is cooperative alert and oriented x3 no focal deficits. Dictated By: Rosemary Regalado MD DD/ [id number] Signed By: 02/17/25 1102 [facility]08-07-2025 History of Present illness Narrative * Alicja Phillips DO - 01/27/2025 10:15 AM EDT Images from the original note were not included. Bianca Toledo is a 64 y.o. female presents for 1st pow Rt. lumpectomy w/slnbx HPI: JAQUELINE Valenzuela presents for her first post-op from right lumpectomy. OBJECTIVE: Physical Exam Exam conducted with a preschool teacher assistant present. Chest: Comments: The right breast incision at the 3 & 7:00 positions are healing well, minor resolvingecchymosis is noted. The axillary incision is healing as well without fluid collections ASSESSMENT AND PLAN: Assessment/Plan Diagnoses and all orders for this visit: Malignant neoplasm of right breast in female, estrogen receptor positive, unspecified site of breast (HCC) The path showed negative margins on both lumpectomy specimens and 0/1 SLN. I will refer her to Rad & Hem Onc and see her in 3 weeks for recheck . I will present her case at tumor board. documented in this encounterSaint Luke's Health [id number] Nuclear medicine [facility] Main [place] [address] [place] [address] Nuclear Medicine Report Signed Patient: Bianca Toledo MR#: [id number] : 1960 Acct:[id number] Age/Sex: 64 / F ADM Date: 5 Loc: [place] Room: Type: [facility] Attending Dr: Alicja Phillips DO Copies to: DO Elieser Barrera Jr DO~ Ordering Provider: Alicja Phillips DO Date of Service: 01/18/25 NM/NM sentinel node w imaging: Right Breast Cancer Nuclear medicine sentinel node imaging. Reason for exam: Right breast cancer. FINDINGS: 0.386 mCi of technetium 99m sulfur colloid was injected into the rightbreast and delayed images were obtained. Delayed images demonstrate migration of the radiotracer to the right axilla. NM/NM sentinel node w imaging IMPRESSION: Migration of the radiotracer to the right axilla. Impression dictated by: Elieser Helms Jr., DValerieOValerie 01/18/2025 1:27 PM Dictation Location: [place] [address] Transcribed By: [facility] 01/18/25 1327 Dictated By: Elieser Helms Jr, DO 01/18/25 1327 Signed By: 01/18/25 1327 [facility]07-29-2025 Hospital Discharge instructions Additional Instructions DISCHARGE INSTRUCTIONS FOR GENERAL SURGERY YOUR ACTIVITY MAY INCLUDE: No restrictions on activities I recommend wearing a bra for support throughout the day, it is not necessary to sleep with it. I want you to utilize your right arm through all ranges of motion however please avoid lifting anything greater than 5 to 7 pounds over your head with your right arm for the next 2 weeks WOUND CARE/INCISION CARE: - The sutures are underneath the skin and will dissolve by themselves. The incisions are covered with surgical glue, there is no need for additional Band-Aids It is safe to get the wounds wet with soap and water in the shower, no hot tubs or tub baths. - Is it common to feel pulling or sharp sticking sensations in the area of incision, these sensations are a part of the normal healing process. - If you develop fever, increasing pain, redness, or swelling around the incision, please notify our office MEDICATION - Resume all previous medications that you were taking for problems unrelated to your surgery, unless informed otherwise. If there are any problems with this, please call the original prescribing doctor. If you have any other questions regarding medications, please call our office. - Over the counter medications such as Acetaminophen, Ibuprofen, Naproxen, and others may be used as directed for pain unless a prescription was provided.[facility] Work Phone: [phone]) 633-635707-17-2025 History of Present illness Narrative* Alicja Phillips, - 01/06/2025 11:15 AM EDT Images from the original note were not included. Bianca Toledo 1960 Bianca Toledo is a 64 y.o. female presents with chief complaint of Breast MRI and genetic results HPI: HPI Bianca presents for the breast MRI results. She was initially seen in the breast clinic cfor workup abnormal mammography. She denied any masses or skin changes but had two areas in the right breastof concern on imaging. SUBJECTIVE: MEDICATIONS: ALLERGIES Current Outpatient Medications Medication Instructions ALPRAZolam (XANAX) 0.25 mg, 3 times daily levothyroxine (SYNTHROID, LEVOXYL) 100 mcg, Daily lovastatin (Mevacor) 20 MG tablet Allergies Allergen Reactions Metoprolol PAST MEDICAL HISTORY: SOCIAL HISTORY SURGICAL HISTORY: Past Medical History: Diagnosis Date Breast cancer (HCC) 11/2024 2 masses in right breast 8 & 2:00 position Thyroid disease Social History Tobacco Use Smoking status: Never Smokeless tobacco: Never Substance Use Topics Alcohol use: Yes Drug use: Never Past Surgical History: Procedure Laterality Date CARDIAC ELECTROPHYSIOLOGY STUDY AND ABLATION SECTION, CLASSIC HYSTERECTOMY FAMILY HISTORY Family History Problem Relation Name Age of Onset Melanoma Mother Stroke Father Breast cancer Paternal Grandmother Colon cancer Neg Hx Ovarian cancer Neg Hx Pancreatic cancer Neg Hx REVIEW OF SYMPTOMS: Review of Systems Constitutional: [...] easily. OBJECTIVE: Visit Vitals OB Status Hysterectomy Smoking Status Never Physical Exam Exam conducted with a preschool teacher assistant present. HENT: Head: Normocephalic. Cardiovascular: Rate and Rhythm: Normal rate and regular rhythm. Pulmonary: Effort: Pulmonary effort is normal. Breath sounds: Normal breath sounds. Chest: Comments: Bilateral supraclavicular, infraclavicular, bicipital and axillary lymph nodes were foundto be normal. Each breast was examined in the sitting and supine position, there was no evidence ofmasses, dimpling or discharge in either breast. Abdominal: General: Abdomen is flat. Bowel sounds are normal. Palpations: Abdomen is soft. Skin: General: Skin is warm and dry. Neurological: Mental Status: She is alert. ASSESSMENT AND PLAN: Assessment/Plan There are no diagnoses linked to this encounter. Kayleigh presents with her sister for the path results. Both sites were positive for IMC The site at 2:00 is ER+ DC neg and the site at 8:00 is ER/DC pos. Her 2 is neg on both. The genetictesting was negative and the breast MRI did not show any additional masses in the breast I discussed the surgical options to include a Right mastectomy with immediate or delayed reconstruction vs a lumpectomy with possible addition of radiation therapy, and the use of a tumor localization technique. We reviewed the risks and benefits of both procedures. I explained that if the lumpectomy procedure were chosen and the final pathology of the specimen revealed positive margins or multifocal cancer, additional surgical procedures and possibly a complete mastectomy would be required. I explained the procedure of using a seed for localization of the breast mass. We discussed the removal of the seed and original biopsy clip and that I will replace the original clip with new marking clips or a radiopaque suture. I discussed the technique of SLN BX and explained the use of the radioactive injection the day of surgery to identify the sentinel LN. I explained that the literature supports removal of the SLN only without complete AXLND. In addition to the radioactive LN I will remove any clinically positive, ie palpable LN in addition to the SLN. The patient was informed that after surgical treatments is completed she will be referred to Hem/Onc and Rad Onc for consideration of additional treatment options. The patients questions were answered and the decision to proceed with Right breast lumpectomy x 2 and SLNBx. She will have a radioactive and magnetic seed placed in the breast. documented in this encounterSaint Luke's Health [id number] History of Present illness Narrative* Alicja Phillips DO - 12/15/2024 1:30 PM EDT Images from the original note were not [...] Hysterectomy Physical Exam Exam conducted with a preschool teacher assistant present. HENT: Head: Normocephalic. Cardiovascular: Rate and Rhythm: Normal rate and regular rhythm. Pulmonary: Effort: Pulmonary effort is normal. Breath sounds: Normal breath sounds. Chest: Comments: Bilateral supraclavicular, infraclavicular, bicipital and axillary lymph nodes were foundto be normal. Each breast was examined in the sitting and supine position, there was no evidence ofmasses, dimpling or discharge in either breast. She [...] IMC The site at 2:00 is ER+ DC neg and the site at 8:00 is ER/DC pos. Her 2 is pending on both. I informed the patient of the diagnosis of RIGHT breast cancer at both sites. I explained that we need to do a breast MRI to make sure these are the only lesions in the beast. I briefly discussed thesurgical options to include a mastectomy with immediate [...] We discussed the indications for genetic testing t o see if she is a carrier of [...] are carriers as well. I explained we doa blood draw in the office and will have the results in 7-10 days. She is in agreement and gave permission for the testing to be completed. I will have her return to review the results of the testingand to plan for surgery. documented in this encounterSaint Luke's Health [id number] Evaluation note* Diagnosis Onset Date Resolution Status Admit Date Breast mass, right acuteJune 2024 11:34amBreast mass, rightacuteJune 2024 12:27pm [facility] Work Phone: [phone]) 885-396306-12-2025 Evaluation note* Diagnosis Onset Date Resolution Status Admit Date Breast mass, right acuteJune 2024 11:34amBreast mass, rightacuteJune 2024 12:27pmBreast cancer, rightacuteAugust 2024 9:41amEncounter for screening for osteoporosisacuteAugust 2024 9:41amThyromegalyacuteAugust 2024 9:41am [facility] Work Phone: 1([phone]) 746-779406-12-2025 Evaluation note* Diagnosis Onset Date Resolution Status Admit Date Breast mass, right acuteJune 2024 11:34amBreast mass, rightacuteJune 2024 12:27pmBreast cancer, rightacuteAugust 2024 9:41amEncounter for screening for osteoporosisacuteAugust 2024 9:41amThyromegalyacuteAugust 2024 9:41amBreast cancer, rightacuteSeptember 2024 1:03pm [facility] Work Phone: 1(522) 606-603211-15-2022 NoteUT Cardiology Consult Note Reason for Consultation: SVT 61-year-old lady with a 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 she was recently admitted to [facility] on 04/27/2022 with SVT. she was given [...] 50 mg twice a day by Dr. Daigle. patient was unable to tolerate this and [...] will check her bl (more content not included)...[facility] CenterEvaluation noteNo assessment information availableCh[facility]icothe [facility] Work Phone: Evaluation note* Diagnosis Malignant neoplasm of right breast in female, estrogen receptor positive, unspecified site of breast (HCC)- Primary [facility]* Diagnosis Malignant neoplasm of right breast in female, estrogen receptor positive, unspecified site of breast (HCC)- Primary [facility]* Diagnosis Malignant neoplasm of right breast in female, estrogen receptor positive, unspecified site of breast (HCC)- Primary [facility]* Diagnosis Multiple thyroid nodules- Primary Nontoxic multinodular goiter [facility]* Diagnosis Thyroid nodule- Primary Nontoxic uninodular goiter [facility]* Diagnosis Malignant neoplasm of right breast in female, estrogen receptor positive, unspecified site of breast (HCC)- Primary documented in this encounter [facility] HealthcareProgress note Author Rosemary Regalado [facility] HospitalNote Date/TimeAugust 2024 11:02am [facility] [place] [address] Cancer Center Note Signed Patient: Bianca Toledo MR#: [id number] : 1960 Acct:[id number] Age/Sex: 64 / F Type: REG AMB Date of Service: 02/17/25 Copies to: MD Alicja Lopez, DO~ Assessment & Plan A/P (1) Breast cancer, right: (2) Thyromegaly: (3) Encounter for screening for osteoporosis: Plan Tumor stage is m (multifocal) T1b N0 (0/1) Invasive lobular carcinoma UIQ and LOQ of right breast. Tumor board discussed her case on 02/11/2025 of her multifocal invasive carcinoma, mixed ductal and lobular, grade 2 with the 1 sample at 7-8 o'clock position being ER positive, DC positive, HER2 negative and the other sample from2-3 o'clock position being ER positive, DC negative and HER2 negative.Tumor board recommendation Tumor board recommendations are: Oncotype DX, endocrine therapy and whole breastradiation. Oncotype DX came back at 25. With distant recurrence at 9 years at 12% with endocrine therapy aloneand the absolute chemotherapy benefit is less than 1%. She also was seen by genetics [employer] testing came back negative. I discussed above findings with her and the recommendations of proceeding with adjuvant radiation followed by adjuvant endocrine therapy for 5-10 years. the chemo benefit is <1% based on age over 50 and Oncotype score of 25. PLAN: Thyroid US for her thyromegaly seen on exam. DEXA scan.LFTS now and 6 weeks after starting endocrine therapy. Refer to Rad Onc for adjuvant XRT of right breast. Start Femara one week after completing radiation therapy. RTC to me with LFTs 6-7 weeks after starting Femara. Orders: Orders Comprehensive Metabolic Panel 1 Day C50.911 - Malignant neoplasm of unspecifiedsite of right femalebreast XR dexa axial skeleton 1 Day C50.911 - Malignant neoplasm of unspecified site of right female breast, Z78.0 - Asymptomatic menopausal state US thyroid Today C50.911 - Malignant neoplasm of unspecified site of right female breast, E04.9 - Nontoxic goiter, unspecified Referrals Referral to Radiation Oncology C50.911 - Malignant neoplasm of unspecified site of right female breast Patient Instructions: refer to radiation oncology dexa scan soon cmp soon follow up 6 weeks after XRT complete with cmp send script for femara thyroid US CHEMO PLAN No Active Chemotherapy History of Present Illness HPI Bianca is a 64-year-old nice lady with history of thyroid disease who never smoked and does not drink alcohol and no prior malignancies and who had C- sections and hysterectomy was referred to our medical oncology office by Dr. Phillips for her new right breast cancer medical oncology management. She initially had abnormal mammogram 2:00 and 8:00 positions on the right breastconcerning for malignancy for which she was seen by Dr. Phillips and a biopsy done on 12/08/2024 revealed: A. Right breast, 8:00, 8 cm from nipple, ultrasound-guided core biopsy: ? Invasive breast carcinoma, grade 2, mixed ductal and lobular origin, see comment. ? The carcinoma involves 5 foci, the largest of which measured 2-3 mm on the slides. ? No DCIS or lymphovascular invasion are identified B. Right breast lesion: ? Invasive breast carcinoma, grade 2, mixed ductal and lobular origin, see comment. ? The carcinoma involves 4 of the cores and the largest focus of tumor measure 0.5 cm on the slides ? No DCIS or lymphovascular invasion are identified HER2 negative (2+ by IHC, 2 o'clock position and cannot be determined group 4 byFISH) therefore Sample A at 8 o'clock position ER +90 to 100% DC +50 to 60% Ki-67 is 25 to 35%. Sample will be at 2 o'clock position: ER +90 to 100% DC negative?6740 to 50%. As per ASCO 2018 considered negative tumors on sample A&B. The sample a from 8 o'clock positionthere are 2 is 0 on IHC. Sample B 2 o'clock position HER2 is 2+. Patient underwent bilateral breast MRI, and underwent genetic testing. [facility] genetic testing was negative. MRI on 12/31/2024 revealed the following: NO MRI EVIDENCE OF MALIGNANCY IS SEEN INVOLVING THE LEFT BREAST. PREVIOUSLY BIOPSIED MASS LIKE AREAS OF ENHANCEMENT ARE ONCE AGAIN NOTED AT THE 2:00 AND 8:00 POSITIONS OF THE RIGHT BREAST DESCRIBED ABOVE. NO ADDITIONAL AREAS OF SUSPICIOUS MASSLIKE OR NONMASS-LIKE ENHANCEMENT IS SEEN WITHIN THE RIGHT BREAST. FINDINGS ARE CONSISTENT WITH MULTICENTRIC DISEASE. NO MRI EVIDENCE OF CHEST WALL INVASION OR LOCAL METASTATIC DISEASE. She underwent right lumpectomy on 01/18/2025. Surgical pathology revealed: 1 sentinel lymph node negative for metastatic disease. Right breast at the 7 8 o'clock position 0.8 cm grade 2 invasive pleomorphic lobular carcinoma negative margins. Right breast 2-3 o'clock lesion is 0.7 cm invasive pleomorphic lobular carcinomamargins negative. Fibrocystic changes seen. Distance from the closest margin of the 8 o'clock position tumor is 1 mm medial margin. Distance from closest margin of the 2 o'clock position the tumor is 2 mm superior margin. Tumor stage is m (multifocal) T1b N0 (0/1)Invasive lobular carcinoma UIQ and LOQof right breast. Tumor board discussed her case on 02/11/2025 of her multifocal invasive carcinoma, mixed ductal and lobular, grade 2 with the 1 sample at 7-8 o'clock position being ER positive, DC positive, HER2 negative and the other sample from2-3 o'clock position being ER positive, DC negative and HER2 negative.Tumor board recommendation Tumor board recommendations are: Oncotype DX, endocrine therapy and whole breastradiation. Oncotype DX came back at 25. With distant recurrence at 9 years at 12% absolutechemotherapy benefitis less than 1%. She also was seen by genetics [employer] testing came back negative. Intake Vitals/Pain Assessment 02/17/25 10:01 Height 5 ft 6 in Weight 64.864 kg BMI 23.1 Body Fat % 37.32 BP 140/87 Blood Pressure Location Lt brachial Position Sitting Pulse 69 Pulse Source NIBP Respiration 20 Pulse Oximetry (%) 98 Oxygen Delivery Method room air Are you having pain? No Intake Visit Reasons: NEW-Mal Zulema right breast Allergies escitalopram (From Lexapro) Allergy (Verified 02/17/25 09:59) Dizziness Home Medications - Last Reconciled 02/17/25 by GRISEL Gibson alprazolam 0.25 mg PO TID PRN levothyroxine 100 mcg PO QAM lovastatin 20 mg PO QHS metoprolol tartrate 25 mg PO BID omeprazole 20 mg PO DAILY Gastrointestinal Is the patient taking opioids for pain control?: No Bowel Protocol for Opioids Given: No Bowel Pattern: Regular Bowel Movement Aid(s): None Falls Fall Precaution Measures Taken: Patient in chair Nurse's Note: Patient is referred by Dr Phillips for right breast cancer. Had lumpectomy on 01/18/2025. Tumor board from 02/11/25. [facility] History Attestation statement: The following information was validated with the patient. Medical History Medical History (Updated 02/17/25 @ 10:58 by Rosemary Regalado MD) Encounter for screening for osteoporosis Thyromegaly Anxiety Scoliosis Back pain GERD (gastroesophageal reflux disease) Hypothyroidism Supraventricular tachycardia Murmur Hypertension Breast cancer, right Surgical History Surgical History (Updated 02/17/25 @ 10:05 by GRISEL Gibson) Status post left breast lumpectomy History of section Hx of breast biopsy History of hysterectomy History of cardiac radiofrequency ablation for SVT Family History Family History (Updated 02/17/25 @ 10:07 by GRISEL Gibson) Father Stroke Heart disease Mother Melanoma Paternal Grandfather No problems noted. Paternal Grandmother Breast cancer Social History Social History (Updated 02/17/25 @ 10:07 by GRISEL Gibson) Smoking status: Never smoker Within the past year, how often did you have a drink containing alcohol: 2-4 times a month In the past 12 months, have you used illegal drugs or prescription drugs for non-medical reasons?: No Review of Systems ROS Details: All systems reviewed & no additional complaints except as documented General: Patient denied fevers, chills, rigors, weight loss or loss of appetite. Head: Patient denied any headaches or vision changes Thoracic: Patient denied any shortness of breath or cough or hemoptysis Cardiovascular patient denies any chest pain or leg edema GI: Patient denies any nausea vomiting rectal bleed diarrhea : Patient denied gross hematuria. Hematology: Patient denied any bleeding from any source. No easy bruising. Lymphatic: No enlarged LAP anywhere. Skin: Normal skin exam no rashes or suspicious lesions. Neurological patient denies any headache or dizziness or focal weakness or sensory changes. Physical Exam EXAM HEENT normocephalic atraumatic pupils are equal and round Neck supple but with mild thyromegaly but no cervical lymphadenopathy. Chest clear to auscultation bilaterally without wheezing crackles or rhonchi Heart regular rate and rhythm S1-S2 without murmurs gallop Right breast without any seroma or discharge and wounds are closed and healing. Abdomen soft nontender not distended without hepatosplenomegaly or masses clinically Extremities no edema of the lower extremities Skin without any suspicious rashes Lymphatic system no lymphadenopathy in the cervical area axillary areas or inguinal areas bilaterally Neurological exam patient is cooperative alert and oriented x3 no focal deficits. Dictated By: Rosemary Regalado MD DD/ [id number] Signed By: <Electronically signed by Rosemary Regalado MD> 02/17/25 1102 [facility] Work Phone: Reason for referral (narrative)No reason for referral information availableCincinnati [facility] Work Phone: Summary Purpose Family History No Family History Records Found Relationship Condition Age at Onset Recorded Date/T mellissa father Cerebrovascular accident (CVA) Unknown Heart diseaseUnknownDeceasedUnknownmotherMalignant melanomaUnknown Relationship Condition Age at Onset Recorded Date/T mellissa father Cerebrovascular accident (CVA) Unknown Heart diseaseUnknownDeceasedUnknownmotherMalignant melanomaUnknownpaternal grandmotherMalignant neoplasm of breastUnknown Advance Directives No Advanced Directives Records Found Advance Directive Response Recorded Date/ Time Advance Directives No March 26, 2017 1:39pm Chief Complaint and Reason for Visit Chief Complaint Admit Date Unknown December 25, 2024 5:36a m C50.911 Z17.0 December 31, 2024 6:23 pm Right Breast Cancer January 07, 2025 9:13 am Right Breast Cancer January 18, 2025 7:45 am NEW-Mal Zulema right breast February 17 9:41am New Patient, Right Breast Cancer Septemb er 2024 1:03pm Mal zulema of right breast March 08, 2025 9:43am Mal zulema of right breast March 17, 2025 4:09pm Mal zulema of right breast March 21, 2025 11:29am Reason for Visit Admit Date Breast cancer, right February 17, 2025 9 :41am Encounter for screening for osteoporosis February 17, 2025 9:41am Thyromegaly February 17, 2025 9: 41am Breast cancer, right March 01, 2025 1:03pm Chief Complaint Admit Date Abnormal Mammogram December 02, 2024 11:3 4am Abnormal Mammogram December 08, 2024 12:2 7pm Unknown December 25, 2024 5:36a m C50.911 Z17.0 December 31, 2024 6:23 pm Right Breast Cancer January 07, 2025 9:13 am Right Breast Cancer January 18, 2025 7:45 am Reason for Visit Admit Date Breast mass, right December 02, 2024 11:3 4am Breast mass, right December 08, 2024 12:2 7pm Chief Complaint Admit Date Unknown October 13, 2024 4:5 0am Abnormal Mammogram December 02, 2024 11:3 4am Abnormal Mammogram December 08, 2024 12:2 7pm Unknown December 25, 2024 5:36a m Reason for Visit Admit Date Breast mass, right December 02, 2024 11:3 4am Breast mass, right December 08, 2024 12:2 7pm Additional Source Comments INFORMATION SOURCE (unrecogn ized section and content) DATE CREATED AUTHOR 07/21/2021 [facility] [employer] DATE CREATED AUTHOR AUTHOR'S ORGANIZ ATION 05/10/2022 [facility] DATE CREATED AUTHOR AUTHOR'S ORGANIZ ATION 06/14/2022 [facility] DATE CREATED AUTHOR AUTHOR'S ORGANIZ ATION 04/07/2025 [facility] DATE CREATED AUTHOR AUTHOR'S ORGANIZ ATION 04/22/2025 [facility] EPIC Care Teams (unrecognized sec tion and content) Team Status: Inactive Member Role Status Dates Amalia Hopkins MD Attending Provider Active St art: October 13, 2024 End: October 13, 2024Team MemberRelationshipSpecialtyStart DateEnd Date Stephen Daigle MD [address] [place] [phone] PCP - [facility]11/30/24 Team Status: Inactive Member Role Status Dates Alicja Phillips DO Attending Provider Active Start: December 02, 2024 End: December 02, 2024Mari Lopez Care ProviderActiveStart: December 02, 2024 End: December 02, 2024 Team Status: Inactive Member Role Status Dates Stephen Daigle MD Primary Care Provider Active Start: December 08, 2024 End: December 08, 2024Stephen [facility]le [facility] ProviderActiveStart: December 08, 2024 End: December 08, 2024 Team Status: Inactive Member Role Status Dates Amalia Hopkins MD Attending Provider Active St art: December 25, 2024 End: December 25, 2024 Team Status: Inactive Member Role Status Dates Alicja Phillips DO Attending Provider Active Start: December 31, 2024 End: December 31, 2024Team MemberRelationshipSpecialtyStart DateEnd Date Stephen Daigle MD [address] [place] [address] [facility]11/30/24Team MemberRelationshipSpecialtyStart DateEnd Date Stephen Daigle MD [address] [place] [address] [facility]11/30/24 Team Status: Active Member Role Status Dates Stephen Daigle MD Primary Care Provider Active Team Status: Inactive Member Role Status Dates Alicja Phillips DO Attending Provider Active Start: January 07, 2025 End: January 07, 2025Mari Lopez Care ProviderActiveStart: January 07, 2025 End: January 07, 2025 Team Status: Inactive Member Role Status Dates Alicja Phillips DO Attending Provider Active Start: January 18, 2025 End: January 18, 2025Mari Lopez Care ProviderActiveStart: January 18, 2025 End: January 18, 2025Team MemberRelationshipSpecialtyStart DateEnd Date Stephen Daigle MD [address] [place] [address] [facility]11/30/24 Team Status: Inactive Member Role Status Dates Stephen Daigle MD Primary Care Provider Active Start: February 17, 2025 End: February 17, 2025Mhd Yaser Al-Marrawi , MDAttending ProviderActiveStart: February 17, 2025 End: February 17, 2025Fredric Itzkomellisa , DOReferring ProviderActiveStart: February 17, 2025 End: February 17, 2025 Team Status: Active Member Role Status Dates Stephen Daigle MD Primary Care Provider Active Start: February 17, 2025 Mhd Yaser Al-[facility]rawi - [facility] [place] , MDAttending ProviderActiveStart: February 17, 2025 Alicja Itzkomellisa , DOReferring ProviderActiveStart: February 17, 2025 Team Status: Inactive Member Role Status Dates Stephen Daigle MD Primary Care Provider Active Start: March 01, 2025 End: March 01, 2025Norjerad Castro , MDAttending ProviderActiveStart: March 01, 2025 End: March 01, 2025Mhd Yaser Al-Marrawi , MDReferring ProviderActiveStart: March 01, 2025 End: March 01, 2025 Team Status: Active Member Role Status Dates Stephen Daigle MD Primary Care Provider Active Start: March 01, 2025 Mhd Yaser Al-Marrawi - [facility] [place] , MDAttending ProviderActiveStart: March 01, 2025 Alicja Itzkomellisa , DOReferring ProviderActiveStart: March 01, 2025 Team MemberRelationshipSpecialtyStart DateEnd Date Stephen Daigle MD [address] [place] [address] PCP - GeneralFamily Medicine11/30/24Team MemberRelationshipSpecialtyStart DateEnd Date Stephen Daigle MD [address] [facility] [phone] PCP - [facility]11/30/24Team MemberRelationshipSpecialtyStart DateEnd Date Stephen Daigle MD [address] [facility] [place] [phone] PCP - [facility]11/30/24 Team Status: Active Member Role Status Dates Stephen Daigle MD Primary Care Provider Active Start: March 08, 2025 Nati Barreraing ProviderActiveStart: March 08, 2025 Aliya Christyending ProviderActiveStart: March 08, 2025 Love Castro MDOther ProviderActiveStart: March 08, 2025 Team Status: Active Member Role Status Dates Stephen Daigle MD Primary Care Provider Active Start: March 17, 2025 Nati Barreraing ProviderActiveStart: March 17, 2025 Love Castro MDAttending ProviderActiveStart: March 17, 2025 Love Castro MDOther ProviderActiveStart: March 17, 2025 Team Status: Active Member Role Status Dates Stephen Daigle MD Primary Care Provider Active Start: March 21, 2025 Nati Barreraing ProviderActiveStart: March 21, 2025 Aliya Christyending ProviderActiveStart: March 21, 2025 Team Status: Inactive Member Role Status Dates Christoph Prakash DO Attending Provider Active S tart: March 21, 2025 End: March 21, 2025 Goals (unrecognized section and content) Goals may be documented in a n alternate sectionGoals may be documented in an alternate sectionGoals may be documented in an alternate sectionGoals may be documented in an alternate section Reason for Visit (unrecogniz ed section and content) ReasonCommentsBx resultsBreast clinic pt.ReasonCommentsBreast MRI and genetic aiygsghMhbensLjzldqjv5dt pow Rt. lumpectomy w/ykdgrZmoyjnWkoadbkq6ys pow Rt. lumpectomyReasonCommentsThyroid NoduleNew patient : thyroid noduleSpecialty Diagnoses / ProceduresReferred By ContactReferred To ContactOtolaryngology Diagnoses Nontoxic single thyroid nodule Procedures [facility] [employer] Timothy Bo MD Phone: tel: fax: Christoph Prakash, DO [address] [place] [address] Phone: tel: fax: Referral IDStatusReasonStart DateExpiration DateVisits RequestedVisits [id number] NoduleFNA left ReasonCommentsThyroid NoduleFNA nthvmmlJinvwaQoebgdso3of pom Rt. lumpectomy FOR RECORDS PERTAINING TO PATIENTS WHO ARE [...] BE BASED ON THE PRIMARY CLINICAL RECORDS. [facility]. provides no warranty or guarantee of the accuracy or completeness of information in this document.
[2025-05-11 14:18] LABS: Alanine Aminotransferase 28 U/L (14-59); Albumin Globulin Ratio 1.1; Albumin Level 3.6 g/dL (3.4-5.0); Alkaline Phosphatase 70 U/L (46-116); Aspartate Amino Transferase 14 U/L (15-37); Globulin 3.2 g/dL; Total Protein 6.8 g/dL (6.4-8.2)
== END 2025-05-11 12:56 | disposition home or self-care (01) ==
LOC: LAB 13:01
PROVIDERS: PCP Family Medicine; Visit Provider Internal Medicine
DX: C50.911 Malignant neoplasm of unspecified site of right female breast (principal)
CPT/HCPCS: 36415; 80076